=== PATIENT | male | born 1985 | race Caucasian/White ===

== ENCOUNTER 2017-10-28 03:09 | Emergency (ER) | payer BC, OTHER ==
[2017-10-28 03:47] VITALS: BP 163/105; PULSE 111; TEMP 98.8; BMI 40.7
--- NOTE | 2017-10-28 03:54 | PDOC ---
History of Present Illness - General Chief Complaint: Cold Symptoms Stated Complaint: S.O.B. Time Seen by Provider: 10/28/17 03:54 History Source: Patient - History of Present Illness Initial Comments: 10/28/17 04:30 32 year old male with flu like symptoms , cough, postussive vomiting, generalized karen aches, nasal congestion x 4 days. tmax 101 with chills and diaphoresis, denies chest pain ,headache, NVD, abdominal pain Past History - Past Medical History Allergies/Adverse Reactions: Allergies Allergy/AdvReac Type Severity Reaction Status Date / Time No Known Allergies Allergy Verified 10/28/17 03:45 Home Medications: Ambulatory Orders Cephalexin [Keflex] 500 mg PO QID #20 capsule 07/18/14 Ibuprofen [Motrin -] 600 mg PO QID PRN #20 tablet 07/18/14 Albuterol Sulfate Inhaler - [Ventolin HFA Inhaler -] 1 - 2 inh PO Q4H #1 inhaler 10/28/17 Azithromycin [Zithromax 250mg Tablets -] 250 mg PO UTDICT #6 tab 10/28/17 - Suicide/Smoking/Psychosocial Hx Smoking Status: No Smoking History: Never smoked Have you smoked in the past 12 months: No Number of Cigarettes Smoked Daily: 0 Information on smoking cessation initiated: No Hx Alcohol Use: No Drug/Substance Use Hx: No Substance Use Type: None *Physical Exam - Vital Signs Last Vital Signs Temp Pulse Resp BP Pulse Ox 98.8 F 111 H 14 163/105 97 10/28/17 03:45 10/28/17 03:45 10/28/17 03:45 10/28/17 03:45 10/28/17 03:45 *DC/Admit/Observation/Transfer Diagnosis at time of Disposition: Bronchitis - Discharge Dispostion Disposition: HOME - Prescriptions Prescriptions: Albuterol Sulfate Inhaler - [Ventolin HFA Inhaler -] 1 - 2 inh PO Q4H #1 inhaler Azithromycin [Zithromax 250mg Tablets -] 250 mg PO UTDICT #6 tab - Referrals Referrals: Juliet Ayala MD [Primary Care Provider] - - Patient Instructions Printed Discharge Instructions: DI for Acute Bronchitis Additional Instructions: use inhaler every 4-6 hours as needed take azithromycin as prescribed. follow up with your doctor as soon as possible. - Post Discharge Activity Forms/Work/School Notes: Back to Work
[2017-10-28] MEDS ORDERED: ALBUTEROL SO4 0.083% IH SOL 2.5 MG/3 ML VIAL.NEB. NEB ONE ×2 (04:30→04:38)
== END 2017-10-28 05:53 | disposition home or self-care (01) ==
LOC: JER 03:09
PROC: 3E0F7GC Introduction of Other Therapeutic Substance into Respiratory Tract, Via Natural or Artificial Opening (ICD-10-PCS; principal; 2017-10-28)
DX: J20.9 Acute bronchitis, unspecified (principal)
CPT/HCPCS: 87804; 99281-25

== ENCOUNTER 2017-12-18 00:43 | Emergency (ER) | payer BC ==
[2017-12-18 01:23] VITALS: BP 138/73; PULSE 103; TEMP 98.7; BMI 40.3
[2017-12-18] MEDS ORDERED: AMPICILLIN NA/SULBACTAM NA 3 GM in SODIUM CHLORIDE 100 ML IVPB ONE (02:01)
--- NOTE | 2017-12-18 02:01 | PDOC ---
History of Present Illness - General History Source: Patient Exam Limitations: No Limitations - History of Present Illness Initial Comments: 12/18/17 02:43 The patient is a 32-year-old male, with no significant past medical history, who presents to the ED with rash on his lower extremities. The patient was seen here on 12/12/17 for what was diagnosed as cellulitis of the lower extremities. He was prescribed keflex and bactrim, with no resolution. The patient has a little patchy area of erythema that started first on the medial aspect of his right calf. Subsequently, the cellulitis appears to have scattered. The patient now has splattered streaking throughout his upper thighs along with his original lesion on his right calf. He complains of fever and chills, but denies checking his temperature at home. The patient is not a diabetic. The patient denies any nausea, vomiting, diarrhea, or abdominal pain. PCP: Dr. Juliet Ayala <Marya Kay - Last Filed: 12/18/17 02:47> - General History Source: Patient <Julian Franklin - Last Filed: 12/18/17 03:59> - General Chief Complaint: Rash Stated Complaint: SKIN PROBLEM Time Seen by Provider: 12/18/17 01:56 Past History <Marya Kay - Last Filed: 12/18/17 02:47> - Past Medical History COPD: No Other medical history: Pt denies - Suicide/Smoking/Psychosocial Hx Smoking Status: No Smoking History: Never smoked Have you smoked in the past 12 months: No Number of Cigarettes Smoked Daily: 0 Information on smoking cessation initiated: No Hx Alcohol Use: No Drug/Substance Use Hx: No Substance Use Type: None <Julian Franklin - Last Filed: 12/18/17 03:59> - Past Medical History Allergies/Adverse Reactions: Allergies Allergy/AdvReac Type Severity Reaction Status Date / Time No Known Allergies Allergy Verified 12/18/17 01:21 Home Medications: Ambulatory Orders Albuterol Sulfate Inhaler - [Ventolin HFA Inhaler -] 1 - 2 inh PO Q4H #1 inhaler 10/28/17 Sulfamethoxazole/Trimethoprim [Bactrim Ds -] 1 tab PO BID #14 tablet 12/12/17 Clindamycin [Cleocin -] 300 mg PO TID #30 capsule 12/18/17 Ibuprofen 800 mg PO TID #30 tablet 12/18/17 Review of Systems - Review of Systems Able to Perform ROS?: Yes Comments:: 12/18/17 02:47 CONSTITUTIONAL: Present: fever, chills Absent: diaphoresis, generalized weakness, malaise, loss of appetite HEENT: Absent: rhinorrhea, nasal congestion, throat pain, throat swelling, difficulty swallowing, mouth swelling, ear pain, eye pain, visual Changes CARDIOVASCULAR: Absent: chest pain, syncope, palpitations, irregular heart rate, lightheadedness , peripheral edema RESPIRATORY: Absent: cough, shortness of breath, dyspnea with exertion, orthopnea, wheezing, stridor, hemoptysis GASTROINTESTINAL: Absent: abdominal pain, abdominal distension, nausea, vomiting, diarrhea, constipation, melena, hematochezia GENITOURINARY: Absent: dysuria, frequency, urgency, hesitancy, hematuria, flank pain, genital pain MUSCULOSKELETAL: Absent: myalgia, arthralgia, joint swelling SKIN: Present: rash to lower extremities Absent: pallor HEMATOLOGIC/IMMUNOLOGIC: Absent: easy bleeding, easy bruising, lymphadenopathy, frequent infections ENDOCRINE: Absent: unexplained weight gain, unexplained weight loss, heat intolerance, cold intolerance NEUROLOGIC: Absent: headache, focal weakness or paresthesias, dizziness, unsteady gait, seizure, mental status changes, bladder or bowel incontinence PSYCHIATRIC: Absent: anxiety, depression, suicidal or homicidal ideation, hallucinations. <Marya Kay - Last Filed: 12/18/17 02:47> *Physical Exam - Vital Signs Last Vital Signs Temp Pulse Resp BP Pulse Ox 98.7 F 103 H 20 138/73 100 12/18/17 01:22 12/18/17 01:22 12/18/17 01:22 12/18/17 01:22 12/18/17 01:22 - Physical Exam Comments: 12/18/17 02:49 GENERAL: Well developed, well nourished. Awake and alert. No acute distress. HEENT: Normocephalic, atraumatic. PERRLA, EOMI. No conjunctival pallor. Sclera are non- icteric. Moist mucous membranes. Oropharynx is clear. NECK: Supple. Full ROM. No JVD. Carotid pulses 2+ and symmetric, without bruits. No thyromegaly. No lymphadenopathy. CARDIOVASCULAR: Regular rate and rhythm. No murmurs, rubs, or gallops. Distal pulses are 2+ and symmetric. PULMONARY: No evidence of respiratory distress. Lungs clear to auscultation bilaterally. No wheezing, rales or rhonchi. MUSCULOSKELETAL Normal range of motion at all joints. No bony deformities or tenderness. No CVA tenderness. EXTREMITIES: (+)Both legs have scattered areas of erythematous streaking, which appear to be on the upper thigh and on the medial right leg, area is slightly tender. No induration or fluctuance. No clubbing. No edema. SKIN: Warm and dry. Normal capillary refill. No rashes. No jaundice. NEUROLOGICAL: Alert, awake, appropriate. PSYCHIATRIC: Cooperative. Good eye contact. Appropriate mood and affect. <Marya Kay - Last Filed: 12/18/17 02:47> - Vital Signs Last Vital Signs Temp Pulse Resp BP Pulse Ox 98.7 F 103 H 20 138/73 100 12/18/17 01:22 12/18/17 01:22 12/18/17 01:22 12/18/17 01:22 12/18/17 01:22 <Julian Franklin - Last Filed: 12/18/17 03:59> ED Treatment Course - LABORATORY CBC & Chemistry Diagram: 12/18/17 02:30 12/18/17 02:30 <Julian Franklin - Last Filed: 12/18/17 03:59> Medical Decision Making - Medical Decision Making 12/18/17 03:59 Dr. Franklin: The scribe's documentation has been prepared under my direction and personally reviewed by me in its entirery. I confirm that the note above accurately reflects all work, treatment, procedures, and medical decision making performed by me. <Julian Franklin - Last Filed: 12/18/17 03:59> *DC/Admit/Observation/Transfer - Attestations Scribe Attestion: 12/18/17 02:45 Documentation prepared by Marya Kay, acting as medical staff coordinator for Julian Franklin MD. <Marya Kay - Last Filed: 12/18/17 02:47> - Discharge Dispostion Admit: No <Julian Franklin - Last Filed: 12/18/17 03:59> Diagnosis at time of Disposition: Cellulitis - Discharge Dispostion Condition at time of disposition: Stable - Referrals Referrals: Juliet Ayala MD [Primary Care Provider] - Mandy Camara MD [Staff Physician] - Deidra Bender [Staff Physician] - - Patient Instructions Printed Discharge Instructions: DI for Cellulitis -- Adult Additional Instructions: Please follow up with the doctors referred to you in two days for re-evaluations - Post Discharge Activity
[2017-12-18 02:52] LABS: BASO % 0.6 % (0-2.0); EOS % 2.2 % (0-4.5); HEMATOCRIT 39.4 % (35.4-49); HEMOGLOBIN 13.4 GM/dL (11.7-16.9); LYMPH % 22.2 % (8-40); MCH 29.7 pg (25.7-33.7); MCHC 34.1 g/dl (32.0-35.9); MEAN CELL VOLUME 87.1 fl (80-96); MEAN PLT VOLUME 9.1 fl (7.5-11.1); PLATELET COUNT 433 K/MM3 (134-434); RBC 4.52 M/mm3 (4.00-5.60); RDW 13.5 % (11.9-15.9); WHITE BLOOD COUNT 11.7 K/mm3 (4.0-10.0)
[2017-12-18 03:09] LABS: INR 1.32 (0.82-1.09); PROTHROMBIN TIME (PATIENT) 14.9 SEC (9.98-11.88)
[2017-12-18 03:19] LABS: ALBUMIN 4.1 g/dl (3.4-5.0); ALK PHOS 100 U/L (45-117); ANION GAP 6 (8-16); BILIRUBIN,TOTAL 0.3 mg/dL (0.2-1.0); BLOOD UREA NITROGEN 14 mg/dL (7-18); CALCIUM 8.7 mg/dL (8.5-10.1); CHLORIDE 104 mmol/L (98-107); CO2 27 mmol/L (21-32); CREATININE 1.3 mg/dL (0.7-1.3); GLUCOSE,RANDOM 97 mg/dL (74-106); POTASSIUM 4.4 mmol/L (3.5-5.1); SGOT/AST 25 U/L (15-37); SGPT/ALT 52 U/L (12-78); SODIUM 137 mmol/L (136-145); TOT PROT 8.1 g/dl (6.4-8.2)
== END 2017-12-18 04:13 | disposition home or self-care (01) ==
LOC: JER 00:43
DX: L03.115 Cellulitis of right lower limb (principal); L03.116 Cellulitis of left lower limb
CPT/HCPCS: 36415; 80053; 85025; 85610; 87040; 99282-25

== ENCOUNTER 2018-01-17 15:44 | Inpatient (IN) | payer BC ==
[2018-01-17] MEDS ORDERED: ASPIRIN 325 MG TABLET PO ONE (16:16)
[2018-01-17] MEDS ORDERED: SODIUM CHLORIDE 1,000 ML IV STA (16:16)
--- NOTE | 2018-01-17 16:29 | PDOC ---
History of Present Illness - General History Source: Patient Exam Limitations: No Limitations - History of Present Illness Initial Comments: This is a 32 YOM with h/o panniculitis recently treated with Prednisone taper ( finished last pill about a week ago) who p/w lightheadedness, one episode of syncope today, and one episode of near-syncope. 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 He had a subsequent episode of the same symptoms without actually losing consciousness just afterward. He states that his symptoms recur when he site up or stands, and improve when he is laying down flat. He additionally has been nauseated and sweaty since the onset today, and notes SOB. He additionally notes an episode of black stool just prior to the syncopal episode, which he has never had before. He does not take iron or bismuth. <Sallie Segovia - Last Filed: 01/17/18 18:51> <Bart Ward - Last Filed: 01/17/18 19:29> - General Chief Complaint: Nausea/Vomiting Stated Complaint: NAUSEA, VOMITING Time Seen by Provider: 01/17/18 16:03 Past History - Past Medical History COPD: No - Suicide/Smoking/Psychosocial Hx Smoking Status: No Smoking History: Never smoked Have you smoked in the past 12 months: No Number of Cigarettes Smoked Daily: 0 Information on smoking cessation initiated: No Hx Alcohol Use: No Drug/Substance Use Hx: No Substance Use Type: None <Sallie Segovia - Last Filed: 01/17/18 18:51> <Bart Ward - Last Filed: 01/17/18 19:29> - Past Medical History Allergies/Adverse Reactions: Allergies Allergy/AdvReac Type Severity Reaction Status Date / Time No Known Allergies Allergy Verified 01/17/18 15:54 Home Medications: Ambulatory Orders Albuterol Sulfate Inhaler - [Ventolin HFA Inhaler -] 1 - 2 inh PO Q4H #1 inhaler 10/28/17 Sulfamethoxazole/Trimethoprim [Bactrim Ds -] 1 tab PO BID #14 tablet 12/12/17 Clindamycin [Cleocin -] 300 mg PO TID #30 capsule 12/18/17 Ibuprofen 800 mg PO TID #30 tablet 12/18/17 Review of Systems - Review of Systems Able to Perform ROS?: Yes Constitutional: No: Chills, Fever, Unexplained wgt Loss HEENTM: No: Nose Congestion, Throat Pain Respiratory: No: Cough, Shortness of Breath Cardiac (ROS): No: Chest Pain, Palpitations ABD/GI: No: Constipated, Diarrhea, Nausea, Vomiting : No: Burning, Dysuria Musculoskeletal: No: Back Pain, Neck Pain Integumentary: No: Bruising, Rash Neurological: No: Headache, Numbness, Tingling, Weakness, Dizziness Endocrine: No: Unexplained Weight Gain, Unexplained Weight Loss <Sallie Segovia - Last Filed: 01/17/18 18:51> *Physical Exam - Vital Signs Last Vital Signs Temp Pulse Resp BP Pulse Ox 98.0 F 134 H 16 141/75 100 01/17/18 15:45 01/17/18 15:45 01/17/18 15:45 01/17/18 15:45 01/17/18 15:45 - Physical Exam General Appearance: Yes: Nourished, Other (Patient's face is very diaphoretic, appears a bit pale, hospital gown with small amount of sweat soakthrough, morbidly obese, very pleasant and insightful adult male answering questions appropriately). No: Apparent Distress HEENT: positive: EOMI, Normal Voice, Hearing Grossly Normal. negative: Scleral Icterus (R), Scleral Icterus (L), Nasal Congestion Neck: positive: Trachea midline, Supple. negative: Tender, Rigid Respiratory/Chest: positive: Lungs Clear, Normal Breath Sounds. negative: Respiratory Distress, Crackles, Rhonchi, Stridor, Wheezing Cardiovascular: positive: Regular Rhythm, S1, S2, Tachycardia. negative: Edema , JVD, Murmur Gastrointestinal/Abdominal: positive: Normal Bowel Sounds, Soft. negative: Tender, Organomegaly, Pulsatile Mass, Guarding Rectal Exam: positive: other (dark/black stool in the rectal vault sent for FOBT ) Musculoskeletal: positive: Normal Inspection. negative: Decreased Range of Motion, Vertebral Tenderness Extremity: positive: Normal Capillary Refill, Normal Inspection, Normal Range of Motion. negative: Tender, Cyanosis Integumentary: positive: Normal Color, Dry, Warm. 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 negative: Facial Droop, Numbness, Sensory Deficit, Confused, Disoriented <Sallie Segovia - Last Filed: 01/17/18 18:51> - Vital Signs Last Vital Signs Temp Pulse Resp BP Pulse Ox 98.8 F 113 H 20 132/80 98 01/17/18 19:13 01/17/18 19:13 01/17/18 19:13 01/17/18 19:13 01/17/18 19:13 <Ed,Boris - Last Filed: 01/17/18 19:29> Heart Score/ECG Review #1 ECG reviewed & interpreted by me at: 16:37 01/17/18 16:37 Sinus tachycardia, rate 120, no ST-T changes, normal axis, NADP <Sallie Segovia - Last Filed: 01/17/18 18:51> ED Treatment Course - LABORATORY CBC & Chemistry Diagram: 01/17/18 16:25 01/17/18 16:25 - RADIOLOGY Radiology Studies Ordered: Category Date Time Status CHEST X-RAY PORTABLE* [RAD] Stat Radiology 01/17/18 16:16 Ordered <Sallie Segovia - Last Filed: 01/17/18 18:51> - LABORATORY CBC & Chemistry Diagram: 01/17/18 18:47 01/17/18 16:25 - ADDITIONAL ORDERS Additional order review: Laboratory Results 01/17/18 01/17/18 01/17/18 16:25 16:25 16:25 PT with INR 13.90 H INR 1.23 H D-Dimer < 200 Sodium Cancelled Potassium Cancelled Chloride Cancelled Carbon Dioxide Cancelled Anion Gap Cancelled BUN Cancelled Creatinine Cancelled Creat Clearance w eGFR Cancelled POC Glucometer Random Glucose Cancelled Calcium Cancelled Phosphorus Cancelled Magnesium Cancelled Total Bilirubin Cancelled AST Cancelled ALT Cancelled Alkaline Phosphatase Cancelled Creatine Kinase Cancelled Troponin I Cancelled Total Protein Cancelled Albumin Cancelled TSH Cancelled Stool Occult Blood 01/17/18 01/17/18 01/17/18 16:23 16:18 16:03 PT with INR INR D-Dimer Sodium 141 Potassium 4.6 Chloride 113 H Carbon Dioxide 21 D Anion Gap 7 L BUN 33 H D Creatinine 0.6 L D Creat Clearance w eGFR > 60 POC Glucometer 124.96714 Random Glucose 108 H Calcium 7.6 L Phosphorus 1.9 L Magnesium 2.1 Total Bilirubin 0.3 AST 14 L D ALT 34 D Alkaline Phosphatase 64 D Creatine Kinase 48 Troponin I 0.03 Total Protein 6.0 L D Albumin 3.0 L D TSH 0.45 Stool Occult Blood Positive 01/17/18 01/17/18 01/17/18 18:47 16:25 16:18 RBC 3.66 L 3.98 L MCV 88.1 89.0 MCHC 33.1 32.5 RDW 14.9 15.0 D MPV 9.4 9.7 Neutrophils % 87.2 H 84.6 H D Lymphocytes % 8.4 9.4 D Monocytes % 3.9 5.2 Eosinophils % 0.0 D 0.3 D Basophils % 0.5 0.5 POC Glucometer 124.26814 - Medications Given in the ED: ED Medications Discontinued Medications Generic Name Dose Route Start Last Admin Trade Name Freq PRN Reason Stop Dose Admin Aspirin 325 mg 01/17/18 16:16 01/17/18 16:32 Asa - PO 01/17/18 16:17 325 mg ONCE ONE Administration Sodium Chloride 1,000 mls @ 1,000 mls/hr 01/17/18 16:16 01/17/18 16:32 Normal Saline - IV 01/17/18 17:15 1,000 mls/hr ASDIR STA Administration Sodium Chloride 500 mls @ 500 mls/hr 01/17/18 18:03 01/17/18 18:07 Normal Saline - IV 01/17/18 19:02 500 mls/hr ASDIR STA Administration Ondansetron HCl 8 mg 01/17/18 17:05 01/17/18 17:09 Zofran Injection IVPUSH 01/17/18 17:06 8 mg ONCE ONE Administration Pantoprazole Sodium 80 mg 01/17/18 17:36 01/17/18 17:38 Protonix Iv IVPUSH 01/17/18 17:37 80 mg ONCE ONE Administration <Bart Ward - Last Filed: 01/17/18 19:29> Medical Decision Making - Medical Decision Making Adult male patient p/w syncope, nausea, lightheadedness, diaphoresis, black stool. Initial Vital Signs Temp Pulse Resp BP Pulse Ox 98.0 F 134 H 16 141/75 100 01/17/18 15:45 01/17/18 15:45 01/17/18 15:45 01/17/18 15:45 01/17/18 15:45 Exam notable for: Patient's face is very diaphoretic, appears a bit pale, hospital gown with small amount of sweat soakthrough, tachycardic but regular, breath sounds normal bilaterally, no abdominal or back ttp, no calf pain or swelling, rectal with small amount of black stool sent for FOBT. DDX IBNLT: hypovolemia and/or anemia from hemorrhage (e.g. AAA, GIB), arrhythmia (WPW, Brugada, long QT, SVT, A-fib, ventricular dysrhythmia, etc), HOCM, vasovagal, orthostasis, metabolic/electrolyte derangement (e.g. hypoglycemia, thyroid disease, pheochromocytoma, adrenal crisis, cortisol deficiency), infection, PE, AD, SAH, ACS, vertigo, etc. W/U ordered: CBCD CMP Mg Phos Troponin CK CKMB UA UCx EKG CXR FOBT Monitor TX ordered: IVF bolus, 80 mg Protonix IV EKG: Sinus tachycardia, rate 120, no ST-T changes, normal axis, NADP First set of jungle top labs hemolyzed; drawing another. CXR: NADP 01/17/18 17:[address] Perdomo who will see the patient for endoscopy [place]. He currently has several patients at [facility] to scope and will come [place] afterwards. He requests to be called if the patient's condition changes. Laboratory Tests 01/17/18 01/17/18 01/17/18 16:03 16:18 16:23 WBC RBC Hgb Hct MCV MCH MCHC RDW Plt Count MPV Neutrophils % Lymphocytes % Monocytes % Eosinophils % Basophils % PT with INR INR D-Dimer Sodium 141 Potassium 4.6 Chloride 113 H Carbon Dioxide 21 D Anion Gap 7 L BUN 33 H D Creatinine 0.6 L D Creat Clearance w eGFR > 60 POC Glucometer 124.10132 Random Glucose 108 H Calcium 7.6 L Phosphorus 1.9 L Magnesium 2.1 Total Bilirubin 0.3 AST 14 L D ALT 34 D Alkaline Phosphatase 64 D Creatine Kinase 48 Troponin I 0.03 Total Protein 6.0 L D Albumin 3.0 L D TSH 0.45 Stool Occult Blood Positive 01/17/18 01/17/18 01/17/18 16:25 16:25 16:25 WBC 16.4 H D RBC 3.98 L Hgb 11.5 L D Hct 35.5 MCV 89.0 MCH 28.9 MCHC 32.5 RDW 15.0 D Plt Count 320 D MPV 9.7 Neutrophils % 84.6 H D Lymphocytes % 9.4 D Monocytes % 5.2 Eosinophils % 0.3 D Basophils % 0.5 PT with INR 13.90 H INR 1.23 H D-Dimer Sodium Cancelled Potassium Cancelled Chloride Cancelled Carbon Dioxide Cancelled Anion Gap Cancelled BUN Cancelled Creatinine Cancelled Creat Clearance w eGFR Cancelled POC Glucometer Random Glucose Cancelled Calcium Cancelled Phosphorus Cancelled Magnesium Cancelled Total Bilirubin Cancelled AST Cancelled ALT Cancelled Alkaline Phosphatase Cancelled Creatine Kinase Cancelled Troponin I Cancelled Total Protein Cancelled Albumin Cancelled TSH Cancelled Stool Occult Blood 01/17/18 16:25 WBC RBC Hgb Hct MCV MCH MCHC RDW Plt Count MPV Neutrophils % Lymphocytes % Monocytes % Eosinophils % Basophils % PT with INR INR D-Dimer < 200 Sodium Potassium Chloride Carbon Dioxide Anion Gap BUN Creatinine Creat Clearance w eGFR POC Glucometer Random Glucose Calcium Phosphorus Magnesium Total Bilirubin AST ALT Alkaline Phosphatase Creatine Kinase Troponin I Total Protein Albumin TSH Stool Occult Blood Reassessment: 01/17/18 18:20 Spoke with ICU on-call provider, in agreement over ICU placement, consult order placed. Consult order placed to Dr. Vila's service per Dr. Perdomo's request. Patient has massive GIB. He requires further hospital observation, workup, and treatment. He requires ICU admission for close monitoring given continued drop in H/H. The patient is unsafe for discharge at this time. Microblog sent to [facility] for admission with ICU placement. Spoke with [facility], in agreement patient to be admitted to ICU to Dr. Velasco. Decision to Admit order placed to [facility] covering attending. <Sallie Segovia - Last Filed: 01/17/18 18:51> *DC/Admit/Observation/Transfer - Discharge Dispostion Admit: Yes <Sallie Segovia - Last Filed: 01/17/18 18:51> - Discharge Dispostion Admit: Yes <Bart Ward Last Filed: 01/17/18 19:29> Diagnosis at time of Disposition: GI bleed Qualifiers: GI bleed type/associated pathology: unspecified gastrointestinal hemorrhage type Qualified Code(s): K92.2 - Gastrointestinal hemorrhage, unspecified Anemia Qualifiers: Anemia type: unspecified type Qualified Code(s): D64.9 - Anemia, unspecified Syncope Qualifiers: Syncope type: unspecified Qualified Code(s): R55 - Syncope and collapse - Discharge Dispostion Condition at time of disposition: Critical - Referrals Referrals: Juliet Ayala MD [Primary Care Provider] - - Patient Instructions - Post Discharge Activity
[2018-01-17 16:38] LABS: BASO % 0.5 % (0-2.0); EOS % 0.3 % (0-4.5); HEMATOCRIT 35.5 % (35.4-49); HEMOGLOBIN 11.5 GM/dL (11.7-16.9); LYMPH % 9.4 % (8-40); MCH 28.9 pg (25.7-33.7); MCHC 32.5 g/dl (32.0-35.9); MEAN PLT VOLUME 9.7 fl (7.5-11.1); MONO % 5.2 % (3.8-10.2); NEUT % 84.6 % (42.8-82.8); PLATELET COUNT 320 K/MM3 (134-434); RBC 3.98 M/mm3 (4.00-5.60); WHITE BLOOD COUNT 16.4 K/mm3 (4.0-10.0)
[2018-01-17] MEDS ORDERED: ONDANSETRON 4 MG/2 ML VIAL IVPUSH ONE (17:05)
[2018-01-17] MEDS ORDERED: ONDANSETRON 4 MG/2 ML VIAL ONE (17:06)
--- NOTE | 2018-01-17 17:06 | PDOC ---
Attending Attestation - HPI HPI: The patient is a 32 year old male with significant past medical history of panniculitis (treated with Prednisone) who presents to the ED for evaluation of lightheadedness and 1 episode of syncope today. He reports fainting after standing and trying to walk with associated symptoms of lightheadedness as well as hearing and vision loss. He reports associated symptoms of nausea and diaphoresis. Of note, he reports an episode of a black stool prior to syncopal episode. <Froy Gresham - Last Filed: 01/17/18 18:29> - Resident Resident Name: LucaSallie - ED Attending Attestation I have performed the following: I have examined & evaluated the patient, The case was reviewed & discussed with the resident, I agree w/resident's findings & plan, Exceptions are as noted - Physicial Exam PE: 01/17/18 17:57 Patient is awake and alert, pale appearing, diaphoretic, tachycardic; nc, atr perrla. eomi conj-pale cta rrr sft, nt, nd - Critical Care Time Total Critical Care Time: 55 Critical Care Statement: The care of this patient involved high complexity decision making to prevent further life threatening deterioration of the patient 's condition and/or to evaluate & treat vital organ system(s) failure or risk of failure. - Medical Decision Making 01/17/18 17:58 Patient is a 32-year-old male who presents with signs and symptoms of upper GI bleed with hypovolemia. Patient is diaphoretic, pale appearing, tachycardic, with signs of orthostatic hypotension on evaluation. Patient is Hemoccult positive. First hemoglobin is noted to be 11.5 which is less than 13.5 obtained 1 month previously. I suspect upper GI bleed related to ibuprofen and prednisone therapy. We'll administer Protonix. We'll resuscitated with IV fluids and blood as needed. Case discussed with GI. Patient will require close monitoring, serial hematocrits, placement in the ICU and endoscopy. Dr. Perdomo of GI consulted and agrees with the plan of care. Will admit to the ICU. 01/17/18 19:27 pt remains mildly tachycardic and normotensive. he is no loner diaphoretic and orthostatic. pt has recieved 1500 ml of NS. repeat cbc shows Hg of 10.7. no indication for prbcs present currently. awaiting transfer to icu. pt seen by GI. will cont witwh plan of care as bfre. <Bart Ward - Last Filed: 01/17/18 19:31> Attestations - Attestations Documentation prepared by Froy Gresham, acting as medical certification specialist for Bart Ward MD. <Froy Gresham - Last Filed: 01/17/18 18:29>
[2018-01-17 17:08] LABS: INR 1.23 (0.82-1.09); PROTHROMBIN TIME (PATIENT) 13.9 SEC (9.7-13.0)
[2018-01-17] MEDS ORDERED: PANTOPRAZOLE SODIUM 40 MG VIAL ONE (17:34)
[2018-01-17] MEDS ORDERED: PANTOPRAZOLE SODIUM 40 MG VIAL IVPUSH ONE (17:36)
[2018-01-17 17:56] LABS: ANION GAP 7 (8-16); BILIRUBIN,TOTAL 0.3 mg/dL (0.2-1.0); BLOOD UREA NITROGEN 33 mg/dL (7-18); CALCIUM 7.6 mg/dL (8.5-10.1); CHLORIDE 113 mmol/L (98-107); CO2 21 mmol/L (21-32); CREATININE 0.6 mg/dL (0.7-1.3); GLUCOSE,RANDOM 108 mg/dL (74-106); MAGNESIUM 2.1 mg/dL (1.8-2.4); PHOSPHOROUS 1.9 mg/dL (2.5-4.9); POTASSIUM 4.6 mmol/L (3.5-5.1); SGOT/AST 14 U/L (15-37); SGPT/ALT 34 U/L (12-78); SODIUM 141 mmol/L (136-145)
[2018-01-17] MEDS ORDERED: SODIUM CHLORIDE 500 ML IV STA (18:03)
[2018-01-17 18:04] LABS: ALK PHOS 64 U/L (45-117)
--- NOTE | 2018-01-17 18:53 | CON.GI ---
Consult Consult Specialty:: Gastroenterology Referred by:: Dr. Bart Ward Reason for Consultation:: GI bleed - History of Present Illness Chief Complaint: Melena since last night History of Present Illness: 32M has had 3 episodes of melena since last night leading to lightheadedness and near syncope. His Hb is 11.5 but is decreased from 13.7. He was recently treated with prednisone and NSAIDs of a panniculitis of his highs by a cigar bander hand following a biopsy. He has no h/o previous GI bleeding. NO alcohol abuse. 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 [employer] Place of : [place] [facility] Home Medications - Allergies Allergies/Adverse Reactions: Allergies Allergy/AdvReac Type Severity Reaction Status Date / Time No Known Allergies Allergy Verified 01/17/18 15:54 - Home Medications Home Medications: Ambulatory Orders Albuterol Sulfate Inhaler - [Ventolin HFA Inhaler -] 1 - 2 inh PO Q4H #1 inhaler 10/28/17 Sulfamethoxazole/Trimethoprim [Bactrim Ds -] 1 tab PO BID #14 tablet 12/12/17 Clindamycin [Cleocin -] 300 mg PO TID #30 capsule 12/18/17 Ibuprofen 800 mg PO TID #30 tablet 12/18/17 Family Disease History - Family Disease History Family Disease History: Other: Father (unknown), Mother (HTN) Review of Systems - Review of Systems Constitutional: reports: No Symptoms Eyes: reports: No Symptoms HENT: reports: No Symptoms Neck: reports: No Symptoms Cardiovascular: reports: No Symptoms Respiratory: reports: No Symptoms Gastrointestinal: reports: No Symptoms Genitourinary: reports: No Symptoms Musculoskeletal: reports: No Symptoms Integumentary: reports: Other (panniculitis of thighs) Physical Exam-GI Vital Signs: Vital Signs Temperature 98.0 F 01/17/18 15:45 Pulse Rate 134 H 01/17/18 15:45 Respiratory Rate 16 01/17/18 15:45 Blood Pressure 141/75 01/17/18 15:45 O2 Sat by Pulse Oximetry (%) 100 01/17/18 15:45 CBC,CMP WBC 16.4 K/mm3 (4.0-10.0) H D 01/17/18 16:25 RBC 3.98 M/mm3 (4.00-5.60) L 01/17/18 16:25 Hgb 11.5 GM/dL (11.7-16.9) L D 01/17/18 16:25 Hct 35.5 % (35.4-49) 01/17/18 16:25 MCV 89.0 fl (80-96) 01/17/18 16:25 MCH 28.9 pg (25.7-33.7) 01/17/18 16:25 MCHC 32.5 g/dl (32.0-35.9) 01/17/18 16:25 RDW 15.0 % (11.9-15.9) D 01/17/18 16:25 Plt Count 320 K/MM3 (134-434) D 01/17/18 16:25 MPV 9.7 fl (7.5-11.1) 01/17/18 16:25 Neutrophils % 84.6 % (42.8-82.8) H D 01/17/18 16:25 Lymphocytes % 9.4 % (8-40) D 01/17/18 16:25 Monocytes % 5.2 % (3.8-10.2) 01/17/18 16:25 Eosinophils % 0.3 % (0-4.5) D 01/17/18 16:25 Basophils % 0.5 % (0-2.0) 01/17/18 16:25 Sodium Cancelled 01/17/18 16:25 Potassium Cancelled 01/17/18 16:25 Chloride Cancelled 01/17/18 16:25 Carbon Dioxide Cancelled 01/17/18 16:25 Anion Gap Cancelled 01/17/18 16:25 BUN Cancelled 01/17/18 16:25 Creatinine Cancelled 01/17/18 16:25 Creat Clearance w eGFR Cancelled 01/17/18 16:25 POC Glucometer 124.41020 UNITS (80-120) 01/17/18 16:18 Random Glucose Cancelled 01/17/18 16:25 Calcium Cancelled 01/17/18 16:25 Phosphorus Cancelled 01/17/18 16:25 Magnesium Cancelled 01/17/18 16:25 Total Bilirubin Cancelled 01/17/18 16:25 AST Cancelled 01/17/18 16:25 ALT Cancelled 01/17/18 16:25 Alkaline Phosphatase Cancelled 01/17/18 16:25 Creatine Kinase Cancelled 01/17/18 16:25 Troponin I Cancelled 01/17/18 16:25 Total Protein Cancelled 01/17/18 16:25 Albumin Cancelled 01/17/18 16:25 TSH Cancelled 01/17/18 16:25 Current Medications Generic Name Dose Route Start Last Admin Trade Name Loulou PRN Reason Stop Dose Admin Sodium Chloride 500 mls @ 500 mls/hr 01/17/18 18:03 01/17/18 18:07 Normal Saline - IV 01/17/18 19:02 500 mls/hr ASDIR STA Administration Constitutional: Yes: No Distress Eyes: Yes: Conjunctiva Clear HENT: Yes: Normocephalic Neck: Yes: Trachea Midline Cardiovascular: Yes: Regular Rate and Rhythm Respiratory: Yes: CTA Bilaterally ...Auscultate: Yes: Normoactive Bowel Sounds ...Palpate: Yes: Soft, Other (nontender) ...Rectal Exam: Yes: Guaiac Positive (black loose stool) Edema: No Neurological: Yes: Alert, Oriented Labs: CBC, BMP 01/17/18 16:25 01/17/18 16:25 INR, PTT INR 1.23 (0.82-1.09) H 01/17/18 16:25 Problem List - Problems (1) Bleeding Assessment/Plan: Suspect bleeding form an NSAID and steroid provoked ulcer or erosive gastroduodenitis or perhaps silent erosive GERD. I have proposed an EGD to diagnose and control the hemorrhage . I have informed Ed of the potential for such complications as perforation and hemorrhage among others and he has granted an informed consent. Will do the EGD after resuscitation. Agree with PPI infusion. The plan was discussed with Dr Ward and Dr Capellan. Code(s): R58 - HEMORRHAGE, NOT ELSEWHERE CLASSIFIED
--- NOTE | 2018-01-17 18:55 | PN ---
Teaching Attending Note Name of Resident: Kale Capellan ATTENDING PHYSICIAN STATEMENT I saw and evaluated the patient. I reviewed the resident's note and discussed the case with the resident. I agree with the resident's findings and plan as documented with exceptions below. SUBJECTIVE: 32 yom with PMhx of obesity, recent bilateral inner thigh rash, when was seen in the ED on 12/12, sent home on keflex/bactrim, seen with persistent symptoms, sent out on clindamycin/ibuprofen and referred to dermatology, when had biopsy confirming panniculitis and was placed on 14 days of prednisone and ibuprofen 400 mg daily with resolution of his thigh symptoms, was in his USOH till overnight when got up to go the bathroom, felt lightheaded, sat on toilet had dark tarry BM, after which got up, felt very dizzy,about to pass out, sat on bed and passed out with his head facing down, feels might have been a few min, woke up, sat on chair with similar episode of lightheadedness and came to ED. patient was noted dizzy, tachycardic, with dark stools in rectum in the ED. Currently patient sitting in bed,appropriately conversant, reports some nausea, but no light headedness/syncope/presyncope symptoms. No vomiting, abdominal pain or further BM in the ED. OBJECTIVE: Vital Signs Period Temp Pulse Resp BP Sys/Ramos Pulse Ox Last 24 Hr 98.0 F 134 16 141/75 100 Intake & Output 01/14/18 01/15/18 01/16/18 01/17/18 23:59 23:59 23:59 23:59 Weight 261 lb GENERAL: Awake, alert, and fully oriented, in no acute distress, no use of acessory muscles of respiration HEAD: Normal with no signs of trauma. EYES: Pupils equal, round and reactive to light, extraocular movements intact, sclera anicteric, conjunctival pallor. No lid lag. EARS, NOSE, THROAT: Ears normal, nares patent, oropharynx clear without exudates. Moist mucous membranes. NECK: soft, supple, no JVD LUNGS: Breath sounds equal, clear to auscultation bilaterally. No wheezes, and no crackles. limited exam HEART: tachycardic ABDOMEN: Soft, nontender, obese, no voluntary or involuntary guarding or rigidity MUSCULOSKELETAL: Normal range of motion at all joints. No bony deformities or tenderness. rectal; minimal stool, no blood UPPER EXTREMITIES: 2+ pulses, warm, well-perfused. No cyanosis. No clubbing. Cap refill <2 seconds. No peripheral edema. LOWER EXTREMITIES: 2+ pulses, warm, well-perfused. No calf tenderness. No peripheral edema. NEUROLOGICAL: Cranial nerves II-XII grossly intact. Normal speech. PSYCHIATRIC: Cooperative. Good eye contact. Appropriate mood and affect. SKIN: Warm, dry, normal turgor, no rashes or lesions noted. Active Medications Generic Name Dose Route Start Last Admin Trade Name Freq PRN Reason Stop Dose Admin Sodium Chloride 500 mls @ 500 mls/hr 01/17/18 18:03 01/17/18 18:07 Normal Saline - IV 01/17/18 19:02 500 mls/hr ASDIR STA Administration Laboratory Results - last 24 hr 01/17/18 01/17/18 01/17/18 16:03 16:18 16:23 WBC RBC Hgb Hct MCV MCH MCHC RDW Plt Count MPV Neutrophils % Lymphocytes % Monocytes % Eosinophils % Basophils % PT with INR INR D-Dimer Sodium 141 Potassium 4.6 Chloride 113 H Carbon Dioxide 21 D Anion Gap 7 L BUN 33 H D Creatinine 0.6 L D Creat Clearance w eGFR > 60 POC Glucometer 124.68711 Random Glucose 108 H Calcium 7.6 L Phosphorus 1.9 L Magnesium 2.1 Total Bilirubin 0.3 AST 14 L D ALT 34 D Alkaline Phosphatase 64 D Creatine Kinase 48 Troponin I 0.03 Total Protein 6.0 L D Albumin 3.0 L D TSH 0.45 Stool Occult Blood Positive 01/17/18 01/17/18 01/17/18 16:25 16:25 16:25 WBC 16.4 H D RBC 3.98 L Hgb 11.5 L D Hct 35.5 MCV 89.0 MCH 28.9 MCHC 32.5 RDW 15.0 D Plt Count 320 D MPV 9.7 Neutrophils % 84.6 H D Lymphocytes % 9.4 D Monocytes % 5.2 Eosinophils % 0.3 D Basophils % 0.5 PT with INR 13.90 H INR 1.23 H D-Dimer Sodium Cancelled Potassium Cancelled Chloride Cancelled Carbon Dioxide Cancelled Anion Gap Cancelled BUN Cancelled Creatinine Cancelled Creat Clearance w eGFR Cancelled POC Glucometer Random Glucose Cancelled Calcium Cancelled Phosphorus Cancelled Magnesium Cancelled Total Bilirubin Cancelled AST Cancelled ALT Cancelled Alkaline Phosphatase Cancelled Creatine Kinase Cancelled Troponin I Cancelled Total Protein Cancelled Albumin Cancelled TSH Cancelled Stool Occult Blood 01/17/18 16:25 WBC RBC Hgb Hct MCV MCH MCHC RDW Plt Count MPV Neutrophils % Lymphocytes % Monocytes % Eosinophils % Basophils % PT with INR INR D-Dimer < 200 Sodium Potassium Chloride Carbon Dioxide Anion Gap BUN Creatinine Creat Clearance w eGFR POC Glucometer Random Glucose Calcium Phosphorus Magnesium Total Bilirubin AST ALT Alkaline Phosphatase Creatine Kinase Troponin I Total Protein Albumin TSH Stool Occult Blood CXR personally reviewed - no acute process visible, follow up official read EKG sinus tach 120, no acute ST-T changes ASSESSMENT AND PLAN: 32 yom with Acute GI haemorrhage, syncope -Acute GI haemorrhage, highly suspicious for bleeding ulcer given recent prednisone/ibuprofen use, r/o other etiologies, low suspicion for lower GI bleed -Syncope, from acute GIB compounded by hypovolumia and vasovagal from bowel movement with positional change, presentation not suggestive of cardiac/ neurological etiology -Sinus tachycardia with orthostasis from above -recent panniculitis resolved -Obesity Plan: Accepted to ICU, 2 large bore IVs, NPO, Aggressive hydration, type and screen, transfuse for Drop > 2 gm or hemodynamically unstable. Protonix drip. GI Dr. Perdomo at bedside, plan for EGD, will follow up. Plan was discussed with patient and all questions answered. patient accepted to ICU. total critical care time 40 min.
[2018-01-17 18:57] LABS: BASO % 0.5 % (0-2.0); HEMATOCRIT 32.3 % (35.4-49); HEMOGLOBIN 10.7 GM/dL (11.7-16.9); LYMPH % 8.4 % (8-40); MCH 29.2 pg (25.7-33.7); MCHC 33.1 g/dl (32.0-35.9); MEAN CELL VOLUME 88.1 fl (80-96); MEAN PLT VOLUME 9.4 fl (7.5-11.1); MONO % 3.9 % (3.8-10.2); NEUT % 87.2 % (42.8-82.8); PLATELET COUNT 297 K/MM3 (134-434); RBC 3.66 M/mm3 (4.00-5.60); RDW 14.9 % (11.9-15.9); WHITE BLOOD COUNT 18.1 K/mm3 (4.0-10.0)
[2018-01-17] MEDS ORDERED: PANTOPRAZOLE SODIUM 80 MG in SODIUM CHLORIDE 100 ML IVPB SCH (19:30)
[2018-01-17] MEDS ORDERED: SODIUM CHLORIDE 0.45% 1,000 ML IV SCH (19:30)
--- NOTE | 2018-01-17 19:30 | HP ---
CHIEF COMPLAINT: upper gi bleed HISTORY OF PRESENT ILLNESS: 32 y/o male came to hospital with a complaint of syncopal episode. Patient reports that in morninn he had black color stool and when he stand up he felt lighhedid. After that he syncopised in his bed for few minutes and after he woke up he felt lightheadid while sitting. States lightheadidness was associated with diaphoresis and sob. Sob got resolved itself Denies chest pain, palpitation. Also reports episode of vomiting which has pink color in it. Denies bleeding disorder, smoking, alcohal, drugs. Denies epigastric pain, pain with food or empty stomach pain. Denies loss of weight and apeatite.Denies dysphagia. Denies tinismus, scallop shucker diarrhoea. Denies pain during defecation. Denies constipation. Denies urinary symptoms and hematuria Patient tokk prednisone and ibuprofen for panculitis. Finished last week ER course was notable for: (1)aspirin 325 mg in er (2)cbc, cmp (3)gi consult Recent Travel: no PAST MEDICAL HISTORY:paniculitis, bronchitis PAST SURGICAL HISTORY: sinus surgery Social History: Smoking: no Alcohol:no Drugs: no Family History: aunt from mother side has cancer, dont know which type. Allergies. dust No Known Allergies Allergy (Verified 01/17/18 15:54) HOME MEDICATIONS: Home Medications Medication Instructions Recorded Albuterol Sulfate Inhaler - 1 - 2 inh PO Q4H #1 inhaler 10/28/17 [Ventolin HFA Inhaler -] Sulfamethoxazole/Trimethoprim 1 tab PO BID #14 tablet 12/12/17 [Bactrim Ds -] Clindamycin [Cleocin -] 300 mg PO TID #30 capsule 12/18/17 Ibuprofen 800 mg PO TID #30 tablet 12/18/17 REVIEW OF SYSTEMS CONSTITUTIONAL: Absent: fever, chills, diaphoresis, generalized weakness, malaise, loss of appetite, weight change HEENT: Absent: rhinorrhea, nasal congestion, throat pain, throat swelling, difficulty swallowing, mouth swelling, ear pain, eye pain, visual changes CARDIOVASCULAR: Absent: chest pain, syncope, palpitations, irregular heart rate, lightheadedness , peripheral edema RESPIRATORY: Absent: cough, shortness of breath, dyspnea with exertion, orthopnea, wheezing, stridor, hemoptysis GASTROINTESTINAL: Absent: abdominal pain, abdominal distension, nausea, vomiting, diarrhea, constipation, melena, hematochezia GENITOURINARY: Absent: dysuria, frequency, urgency, hesitancy, hematuria, flank pain, genital pain MUSCULOSKELETAL: Absent: myalgia, arthralgia, joint swelling, back pain, neck pain SKIN: Absent: rash, itching, pallor HEMATOLOGIC/IMMUNOLOGIC: Absent: easy bleeding, easy bruising, ENDOCRINE: Absent: unexplained weight gain, unexplained weight loss, heat intolerance, cold intolerance NEUROLOGIC: Absent: headache, focal weakness or paresthesias, dizziness, unsteady gait, PSYCHIATRIC: Absent: anxiety, depression, suicidal or homicidal ideation, hallucinations. PHYSICAL EXAMINATION Vital Signs - 24 hr 01/17/18 01/17/18 15:45 19:13 Temperature 98.0 F 98.8 F Pulse Rate 134 H Pulse Rate [ 113 H Left Radial] Respiratory 16 20 Rate Blood Pressure 141/75 Blood Pressure 132/80 [Left Arm] O2 Sat by Pulse 100 98 Oximetry (%) GENERAL: Awake, alert, and fully oriented, in no acute distress. HEAD: Normal with no signs of trauma. EYES: Pupils equal, round and reactive to light, extraocular movements intact, sclera anicteric, conjunctiva clear. No lid lag. EARS, NOSE, THROAT: Ears normal, nares patent, oropharynx clear without exudates. Moist mucous membranes. NECK: Normal range of motion, supple without lymphadenopathy, JVD, or masses. LUNGS: Breath sounds equal, clear to auscultation bilaterally. No wheezes, and no crackles. No accessory muscle use. HEART: Regular rate and rhythm, normal S1 and S2 without murmur, rub or gallop. ABDOMEN: Soft, nontender, not distended, normoactive bowel sounds, no guarding, no rebound, no masses. No hepatomegaly or splenomegaly. MUSCULOSKELETAL: Normal range of motion at all joints. No bony deformities or tenderness. No CVA tenderness. UPPER EXTREMITIES: 2+ pulses, warm, well-perfused. No cyanosis. No clubbing. No peripheral edema. LOWER EXTREMITIES: 2+ pulses, warm, well-perfused. No calf tenderness. No peripheral edema. NEUROLOGICAL: Cranial nerves II-XII intact. Normal speech. Normal gait. PSYCHIATRIC: Cooperative. Good eye contact. Appropriate mood and affect. SKIN: Warm, dry, normal turgor, no rashes or lesions noted, normal capillary refill. Laboratory Results - last 24 hr 01/17/18 01/17/18 01/17/18 16:03 16:18 16:23 WBC RBC Hgb Hct MCV MCH MCHC RDW Plt Count MPV Neutrophils % Lymphocytes % Monocytes % Eosinophils % Basophils % PT with INR INR D-Dimer Sodium 141 Potassium 4.6 Chloride 113 H Carbon Dioxide 21 D Anion Gap 7 L BUN 33 H D Creatinine 0.6 L D Creat Clearance w eGFR > 60 POC Glucometer 124.66996 Random Glucose 108 H Calcium 7.6 L Phosphorus 1.9 L Magnesium 2.1 Total Bilirubin 0.3 AST 14 L D ALT 34 D Alkaline Phosphatase 64 D Creatine Kinase 48 Troponin I 0.03 Total Protein 6.0 L D Albumin 3.0 L D TSH 0.45 Stool Occult Blood Positive 01/17/18 01/17/18 01/17/18 16:25 16:25 16:25 WBC 16.4 H D RBC 3.98 L Hgb 11.5 L D Hct 35.5 MCV 89.0 MCH 28.9 MCHC 32.5 RDW 15.0 D Plt Count 320 D MPV 9.7 Neutrophils % 84.6 H D Lymphocytes % 9.4 D Monocytes % 5.2 Eosinophils % 0.3 D Basophils % 0.5 PT with INR 13.90 H INR 1.23 H D-Dimer Sodium Cancelled Potassium Cancelled Chloride Cancelled Carbon Dioxide Cancelled Anion Gap Cancelled BUN Cancelled Creatinine Cancelled Creat Clearance w eGFR Cancelled POC Glucometer Random Glucose Cancelled Calcium Cancelled Phosphorus Cancelled Magnesium Cancelled Total Bilirubin Cancelled AST Cancelled ALT Cancelled Alkaline Phosphatase Cancelled Creatine Kinase Cancelled Troponin I Cancelled Total Protein Cancelled Albumin Cancelled TSH Cancelled Stool Occult Blood 01/17/18 01/17/18 16:25 18:47 WBC 18.1 H RBC 3.66 L Hgb 10.7 L Hct 32.3 L MCV 88.1 MCH 29.2 MCHC 33.1 RDW 14.9 Plt Count 297 MPV 9.4 Neutrophils % 87.2 H Lymphocytes % 8.4 Monocytes % 3.9 Eosinophils % 0.0 D Basophils % 0.5 PT with INR INR D-Dimer < 200 Sodium Potassium Chloride Carbon Dioxide Anion Gap BUN Creatinine Creat Clearance w eGFR POC Glucometer Random Glucose Calcium Phosphorus Magnesium Total Bilirubin AST ALT Alkaline Phosphatase Creatine Kinase Troponin I Total Protein Albumin TSH Stool Occult Blood ASSESSMENT/PLAN: GI bleed; likely upper gi bleed from ulcer from prednisone and ibuprfen vs vasculitis, less likely lower gi cbc q6h IV fluid 1/2 ns 125ml/hr monitor vitals monitor intake and output. If Hb gows below 8 transfuse blood or if patinet become symptomatic transfuse blood. GI on case Dr kim: likely going to do egd tomorrow or if he bleeds silvia get egd today. protonix drip. To Iv [place] no 18. get aptt, pt/inr type and screen Syncope likely from hypovolemia from bleed. less likely cardiac source. environmental monitoring specialist obesity auto travel counselor for diet and exercise during discharge. paniculitis resolved fluid 1/2 ns 125ml/hr. BP incresed on NS electrolyte: repeat in am nutr: npo dvt pro: scd dispo: icu Visit type - Emergency Visit Emergency Visit: Yes Care time: The patient presented to the Emergency Department on the above date and was hospitalized for further evaluation of their emergent condition. - New Patient This patient is new to me today: Yes Date on this admission: 01/17/18 - Critical Care Critical Care patient: Yes Total Critical Care Time (in minutes): 45 Critical Care Statement: The care of this patient involved high complexity decision making to prevent further life threatening deterioration of the patient 's condition and/or to evaluate & treat vital organ system(s) failure or risk of failure.
[2018-01-17] MEDS ORDERED: PANTOPRAZOLE SODIUM 160 MG in DEXTROSE 5%-WATER - 290 ML IVPB SCH (19:45)
--- NOTE | 2018-01-17 20:59 | CONSULT ---
Consult Consult Specialty:: Pulm/CCM Reason for Consultation:: GIB - History of Present Illness Chief Complaint: Lightheadedness History of Present Illness: 32yo obese man with no significant medical history who was recently treated for panniculitis with prednisone and ibuprofen who was brought in by EMS with c/o lightheaded and an episode of syncope. Pt states that he has been nauseous and lightheaded x1 day and had 1 episode of black stools. He also reported episode of double vision and hearing loss for ~10secs. He denies chest pain, palpitation , abd pain. He completed prednisone and ibuprofen treatment about 1 week [employer]. In the ED 98F, HR 134, BP 141/75, O2 sat 100% on room air. Labs notable for WBC 18.1 87% neuts, Hgb11( previously 13). Emesis x1 mucoid. Two large bore IVs inserted, Protonix IV, Zofran and 1L NS given. He was transferred to ICU for management. In ICU BP 149/99, HR 124, O2 sat 100% on room. Protonix drip started. GI consulted. Plan for EGD in am if remains stable. 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 [employer] Home Medications - Allergies Allergies/Adverse Reactions: Allergies Allergy/AdvReac Type Severity Reaction Status Date / Time No Known Allergies Allergy Verified 01/17/18 15:54 - Home Medications Home Medications: Ambulatory Orders Albuterol Sulfate Inhaler - [Ventolin HFA Inhaler -] 1 - 2 inh PO Q4H #1 inhaler 10/28/17 Sulfamethoxazole/Trimethoprim [Bactrim Ds -] 1 tab PO BID #14 tablet 12/12/17 Clindamycin [Cleocin -] 300 mg PO TID #30 capsule 12/18/17 Ibuprofen 800 mg PO TID #30 tablet 12/18/17 Family Disease History - Family Disease History Family History: Unremarkable Family Disease History: Other: Father (unknown), Mother (HTN) Review of Systems - Review of Systems Eyes: reports: Double Vision HENT: reports: Hearing Loss Cardiovascular: reports: Palpitations Gastrointestinal: reports: Melena Neurological: reports: Syncope Physical Exam Vital Signs: Vital Signs Temperature 98.8 F 01/17/18 19:13 Pulse Rate 113 H 01/17/18 19:13 Respiratory Rate 20 01/17/18 19:13 Blood Pressure 132/80 01/17/18 19:13 O2 Sat by Pulse Oximetry (%) 98 01/17/18 19:13 Intake & Output 01/14/18 01/15/18 01/16/18 01/17/18 23:59 23:59 23:59 23:59 Weight 118.388 kg Constitutional: Yes: Obese Eyes: Yes: Conjunctiva Clear, PERRL HENT: Yes: Atraumatic, Normocephalic Neck: Yes: Supple Cardiovascular: Yes: Regular Rate and Rhythm, Tachycardia, S1, S2 Respiratory: Yes: Regular, CTA Bilaterally Gastrointestinal: Yes: Soft, Abdomen, Obese, Other (non tender) Extremities: Yes: WNL Edema: No Peripheral Pulses WNL: Yes Integumentary: Yes: Other (few small red and scabbed papules on calf and thighs) Neurological: Yes: WNL, Alert ...Motor Strength: WNL Psychiatric: Yes: WNL, Alert Labs: CBC, BMP 01/17/18 18:47 01/17/18 16:25 CBC,CMP WBC 18.1 K/mm3 (4.0-10.0) H 01/17/18 18:47 RBC 3.66 M/mm3 (4.00-5.60) L 01/17/18 18:47 Hgb 10.7 GM/dL (11.7-16.9) L 01/17/18 18:47 Hct 32.3 % (35.4-49) L 01/17/18 18:47 MCV 88.1 fl (80-96) 01/17/18 18:47 MCH 29.2 pg (25.7-33.7) 01/17/18 18:47 MCHC 33.1 g/dl (32.0-35.9) 01/17/18 18:47 RDW 14.9 % (11.9-15.9) 01/17/18 18:47 Plt Count 297 K/MM3 (134-434) 01/17/18 18:47 MPV 9.4 fl (7.5-11.1) 01/17/18 18:47 Neutrophils % 87.2 % (42.8-82.8) H 01/17/18 18:47 Lymphocytes % 8.4 % (8-40) 01/17/18 18:47 Monocytes % 3.9 % (3.8-10.2) 01/17/18 18:47 Eosinophils % 0.0 % (0-4.5) D 01/17/18 18:47 Basophils % 0.5 % (0-2.0) 01/17/18 18:47 Sodium Cancelled 01/17/18 16:25 Potassium Cancelled 01/17/18 16:25 Chloride Cancelled 01/17/18 16:25 Carbon Dioxide Cancelled 01/17/18 16:25 Anion Gap Cancelled 01/17/18 16:25 BUN Cancelled 01/17/18 16:25 Creatinine Cancelled 01/17/18 16:25 Creat Clearance w eGFR Cancelled 01/17/18 16:25 POC Glucometer 124.42135 UNITS (80-120) 01/17/18 16:18 Random Glucose Cancelled 01/17/18 16:25 Calcium Cancelled 01/17/18 16:25 Phosphorus Cancelled 01/17/18 16:25 Magnesium Cancelled 01/17/18 16:25 Total Bilirubin Cancelled 01/17/18 16:25 AST Cancelled 01/17/18 16:25 ALT Cancelled 01/17/18 16:25 Alkaline Phosphatase Cancelled 01/17/18 16:25 Creatine Kinase Cancelled 01/17/18 16:25 Troponin I Cancelled 01/17/18 16:25 Total Protein Cancelled 01/17/18 16:25 Albumin Cancelled 01/17/18 16:25 TSH Cancelled 01/17/18 16:25 Current Medications Chlorhexidine Gluconate (Hibiclens For Decolonization -) 1 applic TP HS LEN Sodium Chloride (1/2 Normal Saline) 1,000 mls @ 125 mls/hr IV ASDIR LEN Pantoprazole Sodium 160 mg/ (Dextrose) 290 mls @ 14.5 mls/hr IVPB Q20H LEN Mupirocin (Bactroban Ointment (For Decolonization) -) 1 applic NS BID [facility] Stop: 01/22/18 21:59 Imaging - Results Chest X-ray: Image Reviewed Problem List - Problems (1) Bleeding Code(s): R58 - HEMORRHAGE, NOT ELSEWHERE CLASSIFIED (2) Gastrointestinal bleeding Code(s): K92.2 - GASTROINTESTINAL HEMORRHAGE, UNSPECIFIED Assessment/Plan 32yom with recenttreatment for panniculitis with prednisone and ibuprofen now present with melena , lightheadedness, syncope and drop in Hgb 13->10.7. Presently HD stable with no new melody. Plan for EGD in am Plan: -GI consulted -Maintain large bore IV -Protonix drip -NPO -Monitor CBC q4-6hrs -Monitor coags -transfuse for Hgb<7 or symptomatic -Trend WBC -MAHESH Macdonald CC time 35mins
[2018-01-17] MEDS: MUPIROCIN 2% TOPICAL OINTMENT FOR DECOLONIZATION NS SCH (22:15)
[2018-01-17] MEDS: CHLORHEXIDINE GLUCONATE 4% CLEANSER FOR DECOLONIZATION TP SCH (22:16)
[2018-01-17 22:40] LABS: BASO % 0.2 % (0-2.0); EOS % 0.2 % (0-4.5); HEMATOCRIT 21.6 % (35.4-49); LYMPH % 18.4 % (8-40); MCH 28.8 pg (25.7-33.7); MCHC 32.5 g/dl (32.0-35.9); MEAN CELL VOLUME 88.6 fl (80-96); MEAN PLT VOLUME 8.7 fl (7.5-11.1); MONO % 5.4 % (3.8-10.2); NEUT % 75.8 % (42.8-82.8); PLATELET COUNT 230 K/MM3 (134-434); RBC 2.44 M/mm3 (4.00-5.60); RDW 14.8 % (11.9-15.9); WHITE BLOOD COUNT 13.8 K/mm3 (4.0-10.0)
[2018-01-17 22:46] VITALS: BMI 42.5
[2018-01-17] MEDS: LACTATED RINGERS SOLUTION 1,000 ML/1,000 ML INFUS.BAG IV SCH (22:57)
[2018-01-18 08:13] LABS: BASO % 0.7 % (0-2.0); EOS % 1.1 % (0-4.5); HEMATOCRIT 29.8 % (35.4-49); HEMOGLOBIN 10.2 GM/dL (11.7-16.9); LYMPH % 26.2 % (8-40); MCH 30.1 pg (25.7-33.7); MCHC 34.3 g/dl (32.0-35.9); MEAN CELL VOLUME 87.8 fl (80-96); MONO % 6.7 % (3.8-10.2); NEUT % 65.3 % (42.8-82.8); PLATELET COUNT 253 K/MM3 (134-434); RBC 3.39 M/mm3 (4.00-5.60); RDW 14.7 % (11.9-15.9); WHITE BLOOD COUNT 19.2 K/mm3 (4.0-10.0)
[2018-01-18 08:37] LABS: INR 1.23 (0.82-1.09); PROTHROMBIN TIME (PATIENT) 13.9 SEC (9.7-13.0)
[2018-01-18 09:03] LABS: ANION GAP 6 (8-16); BLOOD UREA NITROGEN 23 mg/dL (7-18); CHLORIDE 111 mmol/L (98-107); CO2 26 mmol/L (21-32); GLUCOSE,RANDOM 102 mg/dL (74-106); MAGNESIUM 2.1 mg/dL (1.8-2.4); POTASSIUM 4.4 mmol/L (3.5-5.1); SODIUM 143 mmol/L (136-145)
[2018-01-18 09:06] LABS: ALK PHOS 53 U/L (45-117); BILIRUBIN,TOTAL 1.4 mg/dL (0.2-1.0); CREATININE 0.8 mg/dL (0.7-1.3); SGOT/AST 12 U/L (15-37); SGPT/ALT 26 U/L (12-78); TOT PROT 5.5 g/dl (6.4-8.2)
[2018-01-18] MEDS ORDERED: PROPOFOL 20 ML ONE ×5 (09:45→09:46)
[2018-01-18] MEDS ORDERED: LIDOCAINE HCL 2% (20ML MULTI-DOSE VIAL) NR ONE (09:45)
[2018-01-18] MEDS ORDERED: MIDAZOLAM HCL 2 MG/2 ML SINGLE DOSE VIAL ONE (09:45)
[2018-01-18] MEDS ORDERED: ePHEDrine SULFATE 50 MG/1 ML AMPULE ONE (09:45)
[2018-01-18] MEDS ORDERED: SUCCINYLCHOLINE CHLORIDE 200 MG/10 ML VIAL ONE (09:45)
[2018-01-18] MEDS ORDERED: ERYTHROMYCIN INJECTION - 250 MG in SODIUM CHLORIDE 100 ML IVPB ONE (10:00)
--- NOTE | 2018-01-18 10:43 | EKG ---
Test Reason : Blood Pressure : / mmHG Vent. Rate : 120 BPM Atrial Rate : 120 BPM P-R Int : 134 ms QRS Dur : 074 ms QT Int : 320 ms P-R-T Axes : 047 034 058 degrees QTc Int : 452 ms SINUS TACHYCARDIA OTHERWISE NORMAL ECG NO PREVIOUS ECGS AVAILABLE Confirmed by LUZ ESTEVEZ MD ([id number]) on 01/18/2018 10:43:27 AM Referred By: Confirmed By:LUZ ESTEVEZ MD
[2018-01-18] MEDS: MUPIROCIN 2% TOPICAL OINTMENT FOR DECOLONIZATION NS SCH ×2 (10:48→22:08)
--- NOTE | 2018-01-18 10:48 | PN ---
Progress Note (short form) - Note Progress Note: PULMONARY/CCM Pt seen and examined in the ICU. No further bloody bowel movements. Transfused 2 units PRBC with appropriate response. Denies abdominal pain, lightheadedness, chest pain or shortness of breath. Last Vital Signs Temp Pulse Resp BP Pulse Ox 98.2 F 73 15 136/87 99 01/18/18 04:00 01/18/18 08:00 01/18/18 09:00 01/18/18 08:00 01/18/18 09:00 Intake & Output 01/15/18 01/16/18 01/17/18 01/18/18 23:59 23:59 23:59 23:59 Intake Total 200 1050 Output Total 1200 650 Balance -1000 400 Weight 123.06 kg 123.06 kg Gen: NAD at rest Heart: RRR Lung: decreased breath sounds at the bases Abd: soft, nontender Ext: no edema CBC, BMP 01/18/18 08:00 01/18/18 08:00 Active Medications Chlorhexidine Gluconate (Hibiclens For Decolonization -) 1 applic TP HS [facility] Last Admin: 01/17/18 22:16 Dose: 1 applic Pantoprazole Sodium 160 mg/ (Dextrose) 290 mls @ 14.5 mls/hr IVPB Q20H [facility] Last Admin: 01/17/18 22:02 Dose: 14.5 mls/hr Lactated Ringer's (Lactated Ringers Solution) 1,000 ml in 1,000 mls @ 100 mls/ hr IV ASDIR [facility] Last Admin: 01/17/18 22:57 Dose: 100 mls/hr Erythromycin Lactobionate 250 (mg/ Sodium Chloride) 100 mls @ 100 mls/hr IVPB ONCE ONE Stop: 01/18/18 10:59 Mupirocin (Bactroban Ointment (For Decolonization) -) 1 applic NS BID [facility] Stop: 01/22/18 21:59 Last Admin: 01/17/18 22:15 Dose: 1 applic A/P GI Bleed Acute Blood Loss Anemia - monitor H/H - transfuse as needed - protonix gtt - ensure large bore peripheral access - NPO - for endoscopy - mechanical DVT prophylaxis
[2018-01-18] MEDS: LACTATED RINGERS SOLUTION 1,000 ML/1,000 ML INFUS.BAG IV SCH ×2 (11:00→22:09)
[2018-01-18] MEDS ORDERED: EPINEPHrine 1:10,000 (P-F SYR) 1 MG/10 ML DISP.SYRIN IVPUSH ONE (12:20)
--- NOTE | 2018-01-18 12:40 | PN ---
Teaching Attending Note Name of Resident: Bravo Velasco SUBJECTIVE: Patient seen and examined. feels some epigastric discomfort but no dizziness, nausea, vomiting or pain otherwise. Awaiting EGD currently. OBJECTIVE: Vital Signs Period Temp Pulse Resp BP Sys/Ramos Pulse Ox Last 24 Hr 98.0 F-98.8 F 73-145 15-24 118-149/75-99 98-100 Intake & Output 01/15/18 01/16/18 01/17/18 01/18/18 23:59 23:59 23:59 23:59 Intake Total 200 1350 Output Total 1200 650 Balance -1000 700 Weight 271 lb 4.8 oz 271 lb 4.8 oz General: positive pallor, in bed in no acute distress Chest; CTAB, no rales or wheezing abdomen: soft, obese, NT throughout Extremities: no edema Active Medications Generic Name Dose Route Start Last Admin Trade Name Freq PRN Reason Stop Dose Admin Chlorhexidine Gluconate 1 applic 01/17/18 22:00 01/17/18 22:16 Hibiclens For Decolonization - TP 1 applic HS LEN Administration Pantoprazole Sodium 160 mg/ 290 mls @ 14.5 mls/hr 01/17/18 19:45 01/17/18 22: 02 Dextrose IVPB 14.5 mls/hr Q20H LEN Administration Lactated Ringer's 1,000 ml in 1,000 mls @ 100 mls/hr 01/17/18 22:45 01/17/18 22:57 Lactated Ringers Solution IV 100 mls/hr ASDIR LEN Administration Mupirocin 1 applic 01/17/18 22:00 01/18/18 10:48 Bactroban Ointment (For Decolonization) - NS 01/22/18 21:59 1 applic BID LEN Administration Laboratory Results - last 24 hr 01/17/18 01/17/18 01/17/18 16:03 16:18 16:23 WBC RBC Hgb Hct MCV MCH MCHC RDW Plt Count MPV Neutrophils % Lymphocytes % Monocytes % Eosinophils % Basophils % PT with INR INR PTT (Actin FS) D-Dimer Sodium 141 Potassium 4.6 Chloride 113 H Carbon Dioxide 21 D Anion Gap 7 L BUN 33 H D Creatinine 0.6 L D Creat Clearance w eGFR > 60 POC Glucometer 124.47996 Random Glucose 108 H Calcium 7.6 L Phosphorus 1.9 L Magnesium 2.1 Total Bilirubin 0.3 AST 14 L D ALT 34 D Alkaline Phosphatase 64 D Creatine Kinase 48 Troponin I 0.03 Total Protein 6.0 L D Albumin 3.0 L D TSH 0.45 Stool Occult Blood Positive Blood Type Antibody Screen Crossmatch 01/17/18 01/17/18 01/17/18 16:25 16:25 16:25 WBC 16.4 H D RBC 3.98 L Hgb 11.5 L D Hct 35.5 MCV 89.0 MCH 28.9 MCHC 32.5 RDW 15.0 D Plt Count 320 D MPV 9.7 Neutrophils % 84.6 H D Lymphocytes % 9.4 D Monocytes % 5.2 Eosinophils % 0.3 D Basophils % 0.5 PT with INR 13.90 H INR 1.23 H PTT (Actin FS) D-Dimer Sodium Cancelled Potassium Cancelled Chloride Cancelled Carbon Dioxide Cancelled Anion Gap Cancelled BUN Cancelled Creatinine Cancelled Creat Clearance w eGFR Cancelled POC Glucometer Random Glucose Cancelled Calcium Cancelled Phosphorus Cancelled Magnesium Cancelled Total Bilirubin Cancelled AST Cancelled ALT Cancelled Alkaline Phosphatase Cancelled Creatine Kinase Cancelled Troponin I Cancelled Total Protein Cancelled Albumin Cancelled TSH Cancelled Stool Occult Blood Blood Type Antibody Screen Crossmatch 01/17/18 01/17/18 01/17/18 16:25 17:33 18:47 WBC 18.1 H RBC 3.66 L Hgb 10.7 L Hct 32.3 L MCV 88.1 MCH 29.2 MCHC 33.1 RDW 14.9 Plt Count 297 MPV 9.4 Neutrophils % 87.2 H Lymphocytes % 8.4 Monocytes % 3.9 Eosinophils % 0.0 D Basophils % 0.5 PT with INR INR PTT (Actin FS) D-Dimer < 200 Sodium Potassium Chloride Carbon Dioxide Anion Gap BUN Creatinine Creat Clearance w eGFR POC Glucometer Random Glucose Calcium Phosphorus Magnesium Total Bilirubin AST ALT Alkaline Phosphatase Creatine Kinase Troponin I Total Protein Albumin TSH Stool Occult Blood Blood Type O POSITIVE Antibody Screen Negative Crossmatch See Detail 01/17/18 01/17/18 01/18/18 22:30 23:31 08:00 WBC 13.8 H RBC 2.44 L D Hgb 7.0 L D Hct 21.6 L D MCV 88.6 MCH 28.8 MCHC 32.5 RDW 14.8 Plt Count 230 D MPV 8.7 Neutrophils % 75.8 Lymphocytes % 18.4 D Monocytes % 5.4 Eosinophils % 0.2 D Basophils % 0.2 PT with INR 13.90 H INR 1.23 H PTT (Actin FS) 27.0 D-Dimer Sodium Potassium Chloride Carbon Dioxide Anion Gap BUN Creatinine Creat Clearance w eGFR POC Glucometer Random Glucose Calcium Phosphorus Magnesium Total Bilirubin AST ALT Alkaline Phosphatase Creatine Kinase Troponin I Total Protein Albumin TSH Stool Occult Blood Blood Type O POSITIVE Antibody Screen Crossmatch 01/18/18 01/18/18 08:00 08:00 WBC 19.2 H D RBC 3.39 L D Hgb 10.2 L D Hct 29.8 L D MCV 87.8 MCH 30.1 MCHC 34.3 RDW 14.7 Plt Count 253 MPV 9.0 Neutrophils % 65.3 Lymphocytes % 26.2 D Monocytes % 6.7 Eosinophils % 1.1 D Basophils % 0.7 D PT with INR INR PTT (Actin FS) D-Dimer Sodium 143 Potassium 4.4 Chloride 111 H Carbon Dioxide 26 D Anion Gap 6 L BUN 23 H D Creatinine 0.8 D Creat Clearance w eGFR > 60 POC Glucometer Random Glucose 102 Calcium 8.0 L Phosphorus Magnesium 2.1 Total Bilirubin 1.4 H D AST 12 L ALT 26 D Alkaline Phosphatase 53 Creatine Kinase Troponin I Total Protein 5.5 L Albumin 3.0 L TSH Stool Occult Blood Blood Type Antibody Screen Crossmatch ASSESSMENT AND PLAN: 32 yom with Acute GI haemorrhage, syncope -Acute GI haemorrhage, highly suspicious for bleeding ulcer given recent prednisone/ibuprofen use, r/o other etiologies, low suspicion for lower GI bleed -Acute blood loss anemia from above s/p 2 units PRBC -Syncope, from acute GIB compounded by hypovolumia and vasovagal from bowel movement with positional change, presentation not suggestive of cardiac/ neurological etiology -Sinus tachycardia with orthostasis from above -Recent panniculitis resolved -Obesity Plan: s/p 2 units PRBC with appropriate response. For EGD today, will follow up. Continue NPO, protonix drip and ICU monitoring. Further plan per EGD results. Plan discussed with patient and [facility]. total critical care time 40 min.
[2018-01-18] MEDS ORDERED: morphine SULFATE 4 MG/ML VIAL IVPUSH PRN (12:59)
[2018-01-18] MEDS ORDERED: ONDANSETRON 4 MG/2 ML VIAL IVPUSH PRN (13:05)
--- NOTE | 2018-01-18 13:05 | PN ---
Progress Note (short form) - Note Progress Note: GI Procedure NOte ( : Please see EGD report placed into chart. A duodenal bulb ulcer with a visible vessel was seen. The vessel was injected with epinephrine and cauterized. He now has pain and vomiting related to these interventions for which MS has been ordered. Will order Zofran as well. Will continue PPI infusion. If pain subsides will try clear liquids. Problem List - Problems (1) Bleeding Code(s): R58 - HEMORRHAGE, NOT ELSEWHERE CLASSIFIED
[2018-01-18] MEDS ORDERED: PANTOPRAZOLE SODIUM 160 MG in DEXTROSE 5%-WATER - 250 ML IVPB SCH (14:00)
[2018-01-18 16:03] LABS: BASO % 0.2 % (0-2.0); EOS % 0.3 % (0-4.5); HEMATOCRIT 29.1 % (35.4-49); HEMOGLOBIN 10.2 GM/dL (11.7-16.9); LYMPH % 13.9 % (8-40); MCH 30.4 pg (25.7-33.7); MCHC 34.8 g/dl (32.0-35.9); MEAN CELL VOLUME 87.2 fl (80-96); MEAN PLT VOLUME 9.2 fl (7.5-11.1); MONO % 4.3 % (3.8-10.2); NEUT % 81.3 % (42.8-82.8); PLATELET COUNT 221 K/MM3 (134-434); RBC 3.34 M/mm3 (4.00-5.60); RDW 14.6 % (11.9-15.9); WHITE BLOOD COUNT 15.1 K/mm3 (4.0-10.0)
[2018-01-18] MEDS: MAG HYDROX/AL HYDROX/SIMETH 30 ML UNIT-DOSE CUP PO SCH (20:00)
[2018-01-18] MEDS: CHLORHEXIDINE GLUCONATE 4% CLEANSER FOR DECOLONIZATION TP SCH (22:08)
[2018-01-19 06:01] LABS: BASO % 0.4 % (0-2.0); HEMATOCRIT 26.6 % (35.4-49); HEMOGLOBIN 9.1 GM/dL (11.7-16.9); LYMPH % 27.5 % (8-40); MCH 29.7 pg (25.7-33.7); MCHC 34.1 g/dl (32.0-35.9); MEAN CELL VOLUME 87.1 fl (80-96); MONO % 5.3 % (3.8-10.2); NEUT % 64.8 % (42.8-82.8); PLATELET COUNT 229 K/MM3 (134-434); RBC 3.05 M/mm3 (4.00-5.60); RDW 14.6 % (11.9-15.9); WHITE BLOOD COUNT 14.3 K/mm3 (4.0-10.0)
[2018-01-19 06:16] LABS: INR 1.25 (0.82-1.09); PROTHROMBIN TIME (PATIENT) 14.1 SEC (9.7-13.0)
[2018-01-19] MEDS: MAG HYDROX/AL HYDROX/SIMETH 30 ML UNIT-DOSE CUP PO SCH ×4 (06:16→18:17)
[2018-01-19 06:18] LABS: ACTIVATED PTT 23.7 SECONDS (26.9-34.4)
[2018-01-19 06:31] LABS: CHLORIDE 107 mmol/L (98-107); POTASSIUM 4.1 mmol/L (3.5-5.1); SODIUM 140 mmol/L (136-145)
[2018-01-19 06:38] LABS: ALBUMIN 3.1 g/dl (3.4-5.0); ALK PHOS 54 U/L (45-117); ANION GAP 6 (8-16); BILIRUBIN,TOTAL 0.9 mg/dL (0.2-1.0); BLOOD UREA NITROGEN 14 mg/dL (7-18); CALCIUM 8.2 mg/dL (8.5-10.1); CO2 27 mmol/L (21-32); CREATININE 0.8 mg/dL (0.7-1.3); GLUCOSE,RANDOM 95 mg/dL (74-106); SGOT/AST 15 U/L (15-37); SGPT/ALT 27 U/L (12-78); TOT PROT 5.4 g/dl (6.4-8.2)
--- NOTE | 2018-01-19 08:46 | PN ---
Physical Exam: SUBJECTIVE: Patient seen and examined. EGD yesterday found duodenal bulb ulcer; 1x melena after EGD. No event O/N. [place] dizzy/lightheaded this AM after standing for several minutes. Tolerated Clears for breakfast w/o nausea or vomiting. OBJECTIVE: Vital Signs Period Temp Pulse Resp BP Sys/Ramos Pulse Ox Last 24 Hr 97.8 F-98.4 F 78-110 15-22 101-170/50-102 99-99 GENERAL: lying in bed, aaox3, nad HEENT: sclera anicteric, conjunctiva clear, mmm LUNGS: CTAB HEART: tachycardia, regular rhythm, normal S1/S2, no m/r/g ABDOMEN: soft, obese, ntnd, +positive BS EXTREMITIES: 2+ DP pulses, wwp, no edema CBC, BMP 01/19/18 13:34 01/19/18 05:40 Hepatic Panel Total Bilirubin 0.9 mg/dL (0.2-1.0) D 01/19/18 05:40 AST 15 U/L (15-37) D 01/19/18 05:40 ALT 27 U/L (12-78) 01/19/18 05:40 Alkaline Phosphatase 54 U/L (45-117) 01/19/18 05:40 Albumin 3.1 g/dl (3.4-5.0) L 01/19/18 05:40 Active Medications Al Hydroxide/Mg Hydroxide (Mylanta Oral Suspension -) 30 ml PO Q6HPO [facility] Last Admin: 01/19/18 11:27 Dose: 30 ml Chlorhexidine Gluconate (Hibiclens For Decolonization -) 1 applic TP HS [facility] Last Admin: 01/18/18 22:08 Dose: 1 applic Fluticasone Propionate (Flonase -) 1 spray NS DAILY [facility] Last Admin: 01/19/18 12:45 Dose: 1 spr Pantoprazole Sodium 160 mg/ (Dextrose) 290 mls @ 14.5 mls/hr IVPB Q20H LEN PRN Reason: 8 MG/HR Last Admin: 01/19/18 12:42 Dose: 14.5 mls/hr Morphine Sulfate (Morphine Sulfate) 4 mg IVPUSH Q4H PRN PRN Reason: PAIN LEVEL 4 - 6 Last Admin: 01/18/18 13:20 Dose: 4 mg Mupirocin (Bactroban Ointment (For Decolonization) -) 1 applic NS BID [facility] Stop: 01/22/18 21:59 Last Admin: 01/19/18 11:12 Dose: 1 applic Ondansetron HCl (Zofran Injection) 4 mg IVPUSH Q4H PRN PRN Reason: NAUSEA AND/OR VOMITING Last Admin: 01/18/18 13:25 Dose: 4 mg ASSESSMENT/PLAN: 32yo young man who presents with syncope and melena in setting of steroid/NSAID use and found to have acute UGIB. #UGIB 2/2 duodenal ulcer s/p epi/cautery (01/18) -s/p 2U PRBC, H&H stable, repeat CBC in PM -GI consulted -c/w PPI gtt, consider switch to PO in 24h -Advance diet as tolerated #FEN IVF lytes wnl Clears #PPX DVT - SCDs GI - Protonix gtt DISPO: transfer to tele FULL code d/w Dr. Rod Flores MD PGY1 - Internal Medicine Visit type - Emergency Visit Emergency Visit: No - New Patient This patient is new to me today: Yes Date on this admission: 01/19/18 - Critical Care Critical Care patient: Yes Total Critical Care Time (in minutes): 40 Critical Care Statement: The care of this patient involved high complexity decision making to prevent further life threatening deterioration of the patient 's condition and/or to evaluate & treat vital organ system(s) failure or risk of failure.
--- NOTE | 2018-01-19 10:22 | PN ---
Progress Note, Physician History of Present Illness: orthostatic changes noted this a.m. while standing up, otherwise asymptomatic. No BMs since yesterday. No dysphagia, odynophagia, dyspepsia, abdominal pain. Tolerating liquid diet. - Current Medication List Current Medications: Active Medications Al Hydroxide/Mg Hydroxide (Mylanta Oral Suspension -) 30 ml PO Q6HPO [facility] Last Admin: 01/19/18 06:16 Dose: Not Given Chlorhexidine Gluconate (Hibiclens For Decolonization -) 1 applic TP HS [facility] Last Admin: 01/18/18 22:08 Dose: 1 applic Pantoprazole Sodium 160 mg/ (Dextrose) 250 mls @ 12.5 mls/hr IVPB Q20H LEN PRN Reason: 8 MG/HR Last Admin: 01/18/18 14:00 Dose: 12.5 mls/hr Morphine Sulfate (Morphine Sulfate) 4 mg IVPUSH Q4H PRN PRN Reason: PAIN LEVEL 4 - 6 Last Admin: 01/18/18 13:20 Dose: 4 mg Mupirocin (Bactroban Ointment (For Decolonization) -) 1 applic NS BID [facility] Stop: 01/22/18 21:59 Last Admin: 01/18/18 22:08 Dose: 1 applic Ondansetron HCl (Zofran Injection) 4 mg IVPUSH Q4H PRN PRN Reason: NAUSEA AND/OR VOMITING Last Admin: 01/18/18 13:25 Dose: 4 mg - Objective Vital Signs: Vital Signs Temperature 98.4 F 01/19/18 06:00 Pulse Rate 104 H 01/19/18 08:49 Respiratory Rate 18 01/19/18 08:49 Blood Pressure 125/77 01/19/18 08:49 O2 Sat by Pulse Oximetry (%) 99 01/18/18 21:00 Constitutional: Yes: Well Nourished, No Distress, Calm Eyes: Yes: Conjunctiva Clear HENT: Yes: Atraumatic Neck: Yes: Supple Cardiovascular: Yes: Regular Rate and Rhythm Respiratory: Yes: Regular Gastrointestinal: Yes: Normal Bowel Sounds, Soft Neurological: Yes: Alert, Oriented Labs: CBC, BMP 01/19/18 05:40 01/19/18 05:40 INR, PTT INR 1.25 (0.82-1.09) H 01/19/18 05:40 Laboratory Last Values WBC 14.3 K/mm3 (4.0-10.0) H 01/19/18 05:40 RBC 3.05 M/mm3 (4.00-5.60) L 01/19/18 05:40 Hgb 9.1 GM/dL (11.7-16.9) L D 01/19/18 05:40 Hct 26.6 % (35.4-49) L 01/19/18 05:40 MCV 87.1 fl (80-96) 01/19/18 05:40 MCH 29.7 pg (25.7-33.7) 01/19/18 05:40 MCHC 34.1 g/dl (32.0-35.9) 01/19/18 05:40 RDW 14.6 % (11.9-15.9) 01/19/18 05:40 Plt Count 229 K/MM3 (134-434) 01/19/18 05:40 MPV 9.0 fl (7.5-11.1) 01/19/18 05:40 Neutrophils % 64.8 % (42.8-82.8) D 01/19/18 05:40 Lymphocytes % 27.5 % (8-40) D 01/19/18 05:40 Monocytes % 5.3 % (3.8-10.2) 01/19/18 05:40 Eosinophils % 2.0 % (0-4.5) D 01/19/18 05:40 Basophils % 0.4 % (0-2.0) 01/19/18 05:40 PT with INR 14.10 SEC (9.7-13.0) H 01/19/18 05:40 INR 1.25 (0.82-1.09) H 01/19/18 05:40 PTT (Actin FS) 23.7 SECONDS (26.9-34.4) L 01/19/18 05:40 D-Dimer < 200 ng/ml (0-500) 01/17/18 16:25 Sodium 140 mmol/L (136-145) 01/19/18 05:40 Potassium 4.1 mmol/L (3.5-5.1) 01/19/18 05:40 Chloride 107 mmol/L (98-107) 01/19/18 05:40 Carbon Dioxide 27 mmol/L (21-32) 01/19/18 05:40 Anion Gap 6 (8-16) L 01/19/18 05:40 BUN 14 mg/dL (7-18) D 01/19/18 05:40 Creatinine 0.8 mg/dL (0.7-1.3) 01/19/18 05:40 Creat Clearance w eGFR > 60 (>60) 01/19/18 05:40 POC Glucometer 124.01234 UNITS (80-120) 01/17/18 16:18 Random Glucose 95 mg/dL (74-106) 01/19/18 05:40 Calcium 8.2 mg/dL (8.5-10.1) L 01/19/18 05:40 Phosphorus 3.0 mg/dL (2.5-4.9) D 01/19/18 05:40 Magnesium 2.0 mg/dL (1.8-2.4) 01/19/18 05:40 Ferritin 190.484 ng/ml (16.4-293.9) 01/19/18 05:40 Total Bilirubin 0.9 mg/dL (0.2-1.0) D 01/19/18 05:40 AST 15 U/L (15-37) D 01/19/18 05:40 ALT 27 U/L (12-78) 01/19/18 05:40 Alkaline Phosphatase 54 U/L (45-117) 01/19/18 05:40 Creatine Kinase Cancelled 01/17/18 16:25 Troponin I Cancelled 01/17/18 16:25 C-Reactive Protein 1.4 MG/DL (0.00-0.3) H 01/19/18 05:40 Total Protein 5.4 g/dl (6.4-8.2) L 01/19/18 05:40 Albumin 3.1 g/dl (3.4-5.0) L 01/19/18 05:40 Total Amylase 67 U/L (25-115) 01/19/18 05:40 Lipase 128 U/L (73-393) 01/19/18 05:40 TSH Cancelled 01/17/18 16:25 Stool Occult Blood Positive (NEGATIVE) 01/17/18 16:03 Blood Type O POSITIVE 01/17/18 23:31 Antibody Screen Negative 01/17/18 17:33 Crossmatch See Detail 01/17/18 17:33 Problem List - Problems (1) Duodenal ulcer Code(s): K26.9 - DUODENAL ULCER, UNSP ACUTE OR CHRONIC, W/O HEMOR OR PERF (2) Bleeding Code(s): R58 - HEMORRHAGE, NOT ELSEWHERE CLASSIFIED (3) Gastrointestinal bleeding Code(s): K92.2 - GASTROINTESTINAL HEMORRHAGE, UNSPECIFIED Assessment/Plan continue current care. Repeat CBC today. Monitor for melena, or hematochezia. Low threshold to repeat upper endoscopy.
[2018-01-19] MEDS ORDERED: FLUTICASONE PROP 0.05% 16 GM NASAL SPRAY NS SCH (10:30)
[2018-01-19] MEDS ORDERED: PANTOPRAZOLE SODIUM 160 MG in DEXTROSE 5%-WATER - 250 ML IVPB SCH (10:54)
--- NOTE | 2018-01-19 10:57 | PN ---
Teaching Attending Note Name of Resident: Cynthia Brandt ATTENDING PHYSICIAN STATEMENT I saw and evaluated the patient. I reviewed the resident's note and discussed the case with the resident. I agree with the resident's findings and plan as documented. SUBJECTIVE: Pt seen and examined in the ICU. s/p EGD showing duodenal ulcer with visible vessel s/p epi injection and cautery. No bowel movements overnight. OBJECTIVE: Last Vital Signs Temp Pulse Resp BP Pulse Ox 98.3 F 102 H 18 129/79 99 01/19/18 10:00 01/19/18 10:00 01/19/18 10:00 01/19/18 10:00 01/18/18 21:00 Intake & Output 01/16/18 01/17/18 01/18/18 01/19/18 23:59 23:59 23:59 23:59 Intake Total 200 3464.5 1450 Output Total 1200 1710 Balance -1000 1754.5 1450 Weight 123.06 kg 123.06 kg 122.651 kg Gen: NAD at rest Heart: RRR Lung: decreased breath sounds at the bases Abd: soft, nontender Ext: no edema CBC, BMP 01/19/18 05:40 01/19/18 05:40 Active Medications Al Hydroxide/Mg Hydroxide (Mylanta Oral Suspension -) 30 ml PO Q6HPO [facility] Last Admin: 01/19/18 06:16 Dose: Not Given Chlorhexidine Gluconate (Hibiclens For Decolonization -) 1 applic TP HS [facility] Last Admin: 01/18/18 22:08 Dose: 1 applic Fluticasone Propionate (Flonase -) 1 spray NS DAILY [facility] Pantoprazole Sodium 160 mg/ (Dextrose) 290 mls @ 14.5 mls/hr IVPB Q20H LEN PRN Reason: 8 MG/HR Morphine Sulfate (Morphine Sulfate) 4 mg IVPUSH Q4H PRN PRN Reason: PAIN LEVEL 4 - 6 Last Admin: 01/18/18 13:20 Dose: 4 mg Mupirocin (Bactroban Ointment (For Decolonization) -) 1 applic NS BID [facility] Stop: 01/22/18 21:59 Last Admin: 01/18/18 22:08 Dose: 1 applic Ondansetron HCl (Zofran Injection) 4 mg IVPUSH Q4H PRN PRN Reason: NAUSEA AND/OR VOMITING Last Admin: 01/18/18 13:25 Dose: 4 mg ASSESSMENT AND PLAN: GI Bleed from Duodenal Ulcer s/p injection/cautery Acute Blood Loss Anemia - monitor H/H - transfuse as needed - continue protonix gtt - ensure large bore peripheral access - PO per GI - mechanical DVT prophylaxis - can monitor on floor
[2018-01-19] MEDS: MUPIROCIN 2% TOPICAL OINTMENT FOR DECOLONIZATION NS SCH (11:12)
[2018-01-19] MEDS ORDERED: PT OWN MED DRAWER 7, Y5N ONE (12:52)
--- NOTE | 2018-01-19 12:54 | PN ---
Teaching Attending Note Name of Resident: Kathryn Flores ATTENDING PHYSICIAN STATEMENT I saw and evaluated the patient. I reviewed the resident's note and discussed the case with the resident. I agree with the resident's findings and plan as documented with exceptions below. SUBJECTIVE: Patient seen and examined. Episode of dizziness while getting up today, no nausea, vomiting abdominal pain. Tried clears this AM. 1 small dark BM post endoscopy yesterday. Otherwise doing well. OBJECTIVE: Vital Signs Period Temp Pulse Resp BP Sys/Ramos Pulse Ox Last 24 Hr 97.8 F-98.4 F 78-134 15-22 101-170/50-102 99 Intake & Output 01/16/18 01/17/18 01/18/18 01/19/18 23:59 23:59 23:59 23:59 Intake Total 200 3464.5 1450 Output Total 1200 1710 Balance -1000 1754.5 1450 Weight 271 lb 4.8 oz 271 lb 4.8 oz 270 lb 6.4 oz General: sitting in bed in no acute distress Chest: CTAB, no rales or wheezing Abdomen:soft, obese, NT throughout, no voluntary or involuntary guarding or rigidity Extremities: no edema Active Medications Generic Name Dose Route Start Last Admin Trade Name Freq PRN Reason Stop Dose Admin Al Hydroxide/Mg Hydroxide 30 ml 01/18/18 20:00 01/19/18 11:27 Mylanta Oral Suspension - PO 30 ml Q6HPO LEN Administration Chlorhexidine Gluconate 1 applic 01/17/18 22:00 01/18/18 22:08 Hibiclens For Decolonization - TP 1 applic HS LEN Administration Fluticasone Propionate 1 spray 01/19/18 10:30 01/19/18 12:45 Flonase - NS 1 spr DAILY LEN Administration Pantoprazole Sodium 160 mg/ 290 mls @ 14.5 mls/hr 01/19/18 10:54 01/19/18 12: 42 Dextrose IVPB 14.5 mls/hr Q20H LEN Administration 8 MG/HR Morphine Sulfate 4 mg 01/18/18 12:59 01/18/18 13:20 Morphine Sulfate IVPUSH 4 mg Q4H PRN Administration PAIN LEVEL 4 - 6 Mupirocin 1 applic 01/17/18 22:00 01/19/18 11:12 Bactroban Ointment (For Decolonization) - NS 05/03/18 21:59 1 applic BID LEN Administration Ondansetron HCl 4 mg 01/18/18 13:05 01/18/18 13:25 Zofran Injection IVPUSH 4 mg Q4H PRN Administration NAUSEA AND/OR VOMITING Laboratory Results - last 24 hr 01/18/18 01/19/18 01/19/18 15:35 05:40 05:40 WBC 15.1 H 14.3 H RBC 3.34 L 3.05 L Hgb 10.2 L 9.1 L D Hct 29.1 L 26.6 L MCV 87.2 87.1 MCH 30.4 29.7 MCHC 34.8 34.1 RDW 14.6 14.6 Plt Count 221 229 MPV 9.2 9.0 Neutrophils % 81.3 D 64.8 D Lymphocytes % 13.9 D 27.5 D Monocytes % 4.3 5.3 Eosinophils % 0.3 2.0 D Basophils % 0.2 0.4 PT with INR 14.10 H INR 1.25 H PTT (Actin FS) 23.7 L Sodium Potassium Chloride Carbon Dioxide Anion Gap BUN Creatinine Creat Clearance w eGFR Random Glucose Calcium Phosphorus Magnesium Ferritin Total Bilirubin AST ALT Alkaline Phosphatase C-Reactive Protein Total Protein Albumin Total Amylase Lipase 01/19/18 01/19/18 05:40 05:40 WBC RBC Hgb Hct MCV MCH MCHC RDW Plt Count MPV Neutrophils % Lymphocytes % Monocytes % Eosinophils % Basophils % PT with INR INR PTT (Actin FS) Sodium 140 Potassium 4.1 Chloride 107 Carbon Dioxide 27 Anion Gap 6 L BUN 14 D Creatinine 0.8 Creat Clearance w eGFR > 60 Random Glucose 95 Calcium 8.2 L Phosphorus 3.0 D Magnesium 2.0 Ferritin 190.484 Total Bilirubin 0.9 D AST 15 D ALT 27 Alkaline Phosphatase 54 C-Reactive Protein 1.4 H Total Protein 5.4 L Albumin 3.1 L Total Amylase 67 Lipase 128 ASSESSMENT AND PLAN: 32 yom with Acute GI haemorrhage, syncope -Acute GI haemorrhage,from duodenal ulcer s/p Epinephrine/Cautery, likely exacerbated by recent prednisone/NSAIDs use -Acute blood loss anemia from above s/p 2 units PRBC -Syncope, from acute GIB compounded by hypovolumia and vasovagal from bowel movement with positional change, presentation not suggestive of cardiac/ neurological etiology -Sinus tachycardia with orthostasis from above -Recent panniculitis resolved -Obesity Plan: EGD noted, duodenal ulcer with visible vessel s/p Epinephrine/Cautery. h/h mildly drifting down. Overall improved. Repeat CBC this afternoon. Discussed with GI, continue protonix drip for now, transition to PO protonix in 24 hours if tolerating PO well, h/h stable. s/p 2 units PRBC with appropriate response. Continue IVF for now, monitor for new dizziness. Patient advised to avoid ASA/NSAIDs and steroids for now. Plan discussed with patient, Dr. Vila. Agree with transfer to telemetry if h/h stable and no concerns. total critical care time spent in ICU 40 min.
[2018-01-19 13:53] LABS: HEMATOCRIT 26.3 % (35.4-49); MCH 29.9 pg (25.7-33.7); MCHC 34.3 g/dl (32.0-35.9); MEAN CELL VOLUME 87.2 fl (80-96); MEAN PLT VOLUME 8.4 fl (7.5-11.1); PLATELET COUNT 220 K/MM3 (134-434); RBC 3.02 M/mm3 (4.00-5.60); RDW 14.2 % (11.9-15.9); WHITE BLOOD COUNT 13.9 K/mm3 (4.0-10.0)
--- NOTE | 2018-01-19 14:02 | MSN ---
Progress Note (short form) - Note Progress Note: SUBJECTIVE: Patient seen and examined this morning. Patient is s/p EGD with epinephrine injection/ cautery of vessel in duodenal ulcer. Patient had an episode of lightheadedness after standing for 5 minutes associated with nausea. During episode, tachycardia noted (134 bpm), blood pressure maintained at 136/ 98. No associated chest pain, SOB, or diaphoresis. Dizziness quickly relieved by supine position. Overnight tachycardia (100-134 bpm) noted on hall monitor. Patient had one small melanic bowel movement after EGD yesterday. No BM this am. Tolerating clear liquid diet. Overall, patient feels much improved. Admits to mild nausea and minimal orthostatic symptoms. Denies fever, odynophagia, abdominal pain, or dysuria. OBJECTIVE: Vital Signs Period Temp Pulse Resp BP Sys/Ramos Pulse Ox Last 24 Hr 97.8 F-98.6 F 78-134 15-22 101-150/50-98 99 GENERAL: Pale young man standing by edge of bed in no acute distress, awake, alert, and orientated HEAD: Normal without evidence of trauma EYES: Conjuctival pallor, no injection, extra-occular muscles intact MOUTH: No lesions or plaques, uvula midline NECK: No JVD, no lymphadenopathy, no thyromegaly, trachea midline HEART: Regular at 100 bpm, +S1/S2, no murmurs, rubs, or gallops LUNGS: Clear to auscultation b/l, decreased breath sounds at bases b/l, no wheezes or crackles ABDOMEN: Hypoactive bowel sounds, non-distended, non-tender, no masses or organomegaly, no rebound or guarding EXTREMITIES: 2 + pulses b/l, no edema, no calf tenderness NEURO: CN II-XII grossly intact, normal speech, muscle strength 5/5 PSYCH: Pleasant mood, cooperative Laboratory Results - last 24 hr 01/18/18 01/19/18 01/19/18 15:35 05:40 05:40 WBC 15.1 H 14.3 H RBC 3.34 L 3.05 L Hgb 10.2 L 9.1 L D Hct 29.1 L 26.6 L MCV 87.2 87.1 MCH 30.4 29.7 MCHC 34.8 34.1 RDW 14.6 14.6 Plt Count 221 229 MPV 9.2 9.0 Neutrophils % 81.3 D 64.8 D Lymphocytes % 13.9 D 27.5 D Monocytes % 4.3 5.3 Eosinophils % 0.3 2.0 D Basophils % 0.2 0.4 PT with INR 14.10 H INR 1.25 H PTT (Actin FS) 23.7 L Sodium Potassium Chloride Carbon Dioxide Anion Gap BUN Creatinine Creat Clearance w eGFR Random Glucose Calcium Phosphorus Magnesium Ferritin Total Bilirubin AST ALT Alkaline Phosphatase C-Reactive Protein Total Protein Albumin Total Amylase Lipase 01/19/18 01/19/18 05:40 05:40 WBC RBC Hgb Hct MCV MCH MCHC RDW Plt Count MPV Neutrophils % Lymphocytes % Monocytes % Eosinophils % Basophils % PT with INR INR PTT (Actin FS) Sodium 140 Potassium 4.1 Chloride 107 Carbon Dioxide 27 Anion Gap 6 L BUN 14 D Creatinine 0.8 Creat Clearance w eGFR > 60 Random Glucose 95 Calcium 8.2 L Phosphorus 3.0 D Magnesium 2.0 Ferritin 190.484 Total Bilirubin 0.9 D AST 15 D ALT 27 Alkaline Phosphatase 54 C-Reactive Protein 1.4 H Total Protein 5.4 L Albumin 3.1 L Total Amylase 67 Lipase 128 IMAGING: CXR: No acute pathology EKG: Sinus tachycardia. No T-wave inversions or ST-segment changes. Normal QTc. ASSESSMENT/PLAN: 32 yr old male with hx of recently resolved panniculitis treated with prednisone and ibuprofen presented to ED after a syncopal episode and 3 melanic bowel movements and was found to have a bleeding duodenal bulb ulcer. #Acute upper GI hemorrhage-s/p EGD with cautery of duodenal ulcer; s/p 2 units of PRBC -Ulcer likely exacerbated by recent course of prednisone and ibuprofen-avoid NSAIDS -Continue protonix IV today, transition to protonix PO in 24 hr if H and H stable -Maintain peripheral IV access; transfuse if Hb<7; Hb decreased from 10.2 (4- 29) to 9.1 (4-30), repeat H and H this afternoon -Advance diet to GI soft as tolerated #Syncope-likely due to acute hemorrhagic anemia and hypovolemia -S/p 2 units PRBC, continue to monitor H and H, 1 gram decrease in hemoglobin overnight, repeat H and H this afternoon -Unlikely cardiac etiology, sinus tachycardia on monitor, maintain cardiac monitoring #Panniculitis-resolved -Avoid NSAIDS/aspirin in the future #F/E/N -Clear liquid diet, advance to GI soft for dinner -1/2 NS at 75 ml/hr #DVT prophylaxis -SCDs #Dispo-transfer to telemetry
--- NOTE | 2018-01-19 15:22 | PN ---
Physical Exam: SUBJECTIVE: Patient seen and examined in the ICU. [place] dizzy/lightheaded after standing for several minutes this morning. Pt tolerated clear liquid diet for breakfast sans nausea or vomiting. Pt denies headache, chest pain, sob, abdominal pain, fever, chills. OBJECTIVE: Vital Signs Period Temp Pulse Resp BP Sys/Ramos Pulse Ox Last 24 Hr 97.8 F-98.6 F 78-134 16-22 101-150/50-98 99 GENERAL: The patient is awake, alert, and fully oriented, in no acute distress. LUNGS: Breath sounds equal, clear to auscultation bilaterally, no wheezes, no crackles, no accessory muscle use. HEART: Regular rate and rhythm, S1, S2 without murmur, rub or gallop. ABDOMEN: Soft, nontender, nondistended, normoactive bowel sounds, no guarding. EXTREMITIES: Warm, well-perfused, no edema. NEUROLOGICAL: Cranial nerves II through XII grossly intact. Normal speech. PSYCH: Normal mood, normal affect. Laboratory Results - last 24 hr 01/18/18 01/19/18 01/19/18 15:35 05:40 05:40 WBC 15.1 H 14.3 H RBC 3.34 L 3.05 L Hgb 10.2 L 9.1 L D Hct 29.1 L 26.6 L MCV 87.2 87.1 MCH 30.4 29.7 MCHC 34.8 34.1 RDW 14.6 14.6 Plt Count 221 229 MPV 9.2 9.0 Neutrophils % 81.3 D 64.8 D Lymphocytes % 13.9 D 27.5 D Monocytes % 4.3 5.3 Eosinophils % 0.3 2.0 D Basophils % 0.2 0.4 PT with INR 14.10 H INR 1.25 H PTT (Actin FS) 23.7 L Sodium Potassium Chloride Carbon Dioxide Anion Gap BUN Creatinine Creat Clearance w eGFR Random Glucose Calcium Phosphorus Magnesium Ferritin Total Bilirubin AST ALT Alkaline Phosphatase C-Reactive Protein Total Protein Albumin Total Amylase Lipase 01/19/18 01/19/18 01/19/18 05:40 05:40 13:34 WBC 13.9 H RBC 3.02 L Hgb 9.0 L Hct 26.3 L MCV 87.2 MCH 29.9 MCHC 34.3 RDW 14.2 Plt Count 220 MPV 8.4 Neutrophils % Lymphocytes % Monocytes % Eosinophils % Basophils % PT with INR INR PTT (Actin FS) Sodium 140 Potassium 4.1 Chloride 107 Carbon Dioxide 27 Anion Gap 6 L BUN 14 D Creatinine 0.8 Creat Clearance w eGFR > 60 Random Glucose 95 Calcium 8.2 L Phosphorus 3.0 D Magnesium 2.0 Ferritin 190.484 Total Bilirubin 0.9 D AST 15 D ALT 27 Alkaline Phosphatase 54 C-Reactive Protein 1.4 H Total Protein 5.4 L Albumin 3.1 L Total Amylase 67 Lipase 128 Active Medications Generic Name Dose Route Start Last Admin Trade Name Freq PRN Reason Stop Dose Admin Al Hydroxide/Mg Hydroxide 30 ml 01/18/18 20:00 01/19/18 11:27 Mylanta Oral Suspension - PO 30 ml Q6HPO LEN Administration Chlorhexidine Gluconate 1 applic 01/17/18 22:00 01/18/18 22:08 Hibiclens For Decolonization - TP 1 applic HS LEN Administration Fluticasone Propionate 1 spray 01/19/18 10:30 01/19/18 12:45 Flonase - NS 1 spr DAILY LEN Administration Pantoprazole Sodium 160 mg/ 290 mls @ 14.5 mls/hr 01/19/18 10:54 01/19/18 12: 42 Dextrose IVPB 14.5 mls/hr Q20H LEN Administration 8 MG/HR Morphine Sulfate 4 mg 01/18/18 12:59 01/18/18 13:20 Morphine Sulfate IVPUSH 4 mg Q4H PRN Administration PAIN LEVEL 4 - 6 Mupirocin 1 applic 01/17/18 22:00 01/19/18 11:12 Bactroban Ointment (For Decolonization) - NS 01/22/18 21:59 1 applic BID LEN Administration Ondansetron HCl 4 mg 01/18/18 13:05 01/18/18 13:25 Zofran Injection IVPUSH 4 mg Q4H PRN Administration NAUSEA AND/OR VOMITING ASSESSMENT/PLAN: 32M presents with syncope and melena in setting of steroid/NSAID use, found to have acute UGIB. # GI Bleed from Duodenal Ulcer - s/p injection/cautery by Dr. Perdomo on 01/18/18 - GI (Dr. Vila) recs appreciated: maintain clear liquids for one more day - Morphine prn for pain control - Zofran prn for nausea # Acute Blood Loss Anemia - s/p 2U PRBCs this hospitalization - hgb stable - transfuse prn # FEN/ppx - Fluids: po - Electrolytes: wnl, continue to monitor - Nutrition: clear liquids - DVT ppx with yolanda SCDs - GI ppx with Protonix # dispo - stable for transfer to floors Visit type - Emergency Visit Emergency Visit: Yes ED Registration Date: 01/17/18 Care time: The patient presented to the Emergency Department on the above date and was hospitalized for further evaluation of their emergent condition. - New Patient This patient is new to me today: Yes Date on this admission: 01/19/18 - Critical Care Critical Care patient: Yes Total Critical Care Time (in minutes): 45 Critical Care Statement: The care of this patient involved high complexity decision making to prevent further life threatening deterioration of the patient 's condition and/or to evaluate & treat vital organ system(s) failure or risk of failure.
[2018-01-19] MEDS ORDERED: SODIUM CHLORIDE 1,000 ML IV SCH (16:30)
[2018-01-19] MEDS ORDERED: morphine SULFATE 4 MG/ML VIAL IVPUSH PRN (19:17)
[2018-01-19] MEDS ORDERED: ONDANSETRON 4 MG/2 ML VIAL IVPUSH PRN (19:17)
[2018-01-19 20:35] LABS: HEMATOCRIT 25.6 % (35.4-49); HEMOGLOBIN 8.7 GM/dL (11.7-16.9); MCH 29.8 pg (25.7-33.7); MCHC 33.9 g/dl (32.0-35.9); MEAN CELL VOLUME 87.7 fl (80-96); MEAN PLT VOLUME 8.7 fl (7.5-11.1); PLATELET COUNT 229 K/MM3 (134-434); RBC 2.91 M/mm3 (4.00-5.60); RDW 14.4 % (11.9-15.9); WHITE BLOOD COUNT 13.8 K/mm3 (4.0-10.0)
[2018-01-20] MEDS: MAG HYDROX/AL HYDROX/SIMETH 30 ML UNIT-DOSE CUP PO SCH ×3 (00:24→15:29)
[2018-01-20] MEDS ORDERED: HEMOQUE CONTROL SOLUTION ONE (01:41)
[2018-01-20] MEDS ORDERED: HEMOQUE TEST 1 EACH EACH ONE (05:50)
[2018-01-20 06:22] LABS: HEMATOCRIT 24.9 % (35.4-49); HEMOGLOBIN 8.5 GM/dL (11.7-16.9); MCHC 34.1 g/dl (32.0-35.9); MEAN CELL VOLUME 87.9 fl (80-96); MEAN PLT VOLUME 9.1 fl (7.5-11.1); PLATELET COUNT 237 K/MM3 (134-434); RBC 2.83 M/mm3 (4.00-5.60); RDW 14.5 % (11.9-15.9); WHITE BLOOD COUNT 12.6 K/mm3 (4.0-10.0)
[2018-01-20] MEDS ORDERED: PANTOPRAZOLE SODIUM 160 MG in DEXTROSE 5%-WATER - 250 ML IVPB SCH (06:54)
[2018-01-20 06:55] LABS: ANION GAP 7 (8-16); BLOOD UREA NITROGEN 12 mg/dL (7-18); CHLORIDE 107 mmol/L (98-107); CO2 28 mmol/L (21-32); CREATININE 0.9 mg/dL (0.7-1.3); GLUCOSE,RANDOM 97 mg/dL (74-106); POTASSIUM 3.7 mmol/L (3.5-5.1); SODIUM 142 mmol/L (136-145)
--- NOTE | 2018-01-20 07:38 | PN ---
Physical Exam: SUBJECTIVE: Patient seen and examined OBJECTIVE: Vital Signs Period Temp Pulse Resp BP Sys/Ramos Pulse Ox Last 24 Hr 98.3 F-99.8 F 75-134 14-20 101-139/58-98 98 GENERAL: The patient is awake, alert, and fully oriented, in no acute distress. HEAD: Normal with no signs of trauma. EYES: PERRL, extraocular movements intact, sclera anicteric, conjunctiva clear. No ptosis. ENT: Ears normal, nares patent, oropharynx clear without exudates, moist mucous membranes. NECK: Trachea midline, full range of motion, supple. LUNGS: Breath sounds equal, clear to auscultation bilaterally, no wheezes, no crackles, no accessory muscle use. HEART: Regular rate and rhythm, S1, S2 without murmur, rub or gallop. ABDOMEN: Soft, nontender, nondistended, normoactive bowel sounds, no guarding, no rebound, no hepatosplenomegaly, no masses. EXTREMITIES: 2+ pulses, warm, well-perfused, no edema. NEUROLOGICAL: Cranial nerves II through XII grossly intact. Normal speech, gait not observed. PSYCH: Normal mood, normal affect. SKIN: Warm, dry, normal turgor, no rashes or lesions noted Laboratory Results - last 24 hr 01/19/18 01/19/18 01/20/18 13:34 20:00 05:57 WBC 13.9 H 13.8 H 12.6 H RBC 3.02 L 2.91 L 2.83 L Hgb 9.0 L 8.7 L 8.5 L Hct 26.3 L 25.6 L 24.9 L MCV 87.2 87.7 87.9 MCH 29.9 29.8 30.0 MCHC 34.3 33.9 34.1 RDW 14.2 14.4 14.5 Plt Count 220 229 237 MPV 8.4 8.7 9.1 Active Medications Generic Name Dose Route Start Last Admin Trade Name Freq PRN Reason Stop Dose Admin Al Hydroxide/Mg Hydroxide 30 ml 01/20/18 00:00 01/20/18 05:20 Mylanta Oral Suspension - PO Not Given Q6HPO LEN Fluticasone Propionate 1 spray 01/20/18 10:00 Flonase - NS DAILY LEN Sodium Chloride 1,000 mls @ 75 mls/hr 01/19/18 16:30 01/19/18 17:07 Normal Saline - IV 75 mls/hr ASDIR LEN Administration Pantoprazole Sodium 160 mg/ 290 mls @ 14.5 mls/hr 01/20/18 06:54 01/20/18 06: 23 Dextrose IVPB 14.5 mls/hr Q20H LEN Administration 8 MG/HR Morphine Sulfate 4 mg 01/19/18 19:17 Morphine Sulfate IVPUSH Q4H PRN PAIN LEVEL 4 - 6 Ondansetron HCl 4 mg 01/19/18 19:17 Zofran Injection IVPUSH Q4H PRN NAUSEA AND/OR VOMITING ASSESSMENT/PLAN:
[2018-01-20 08:08] LABS: SERUM IRON SATURATION 24 % (15-55); TOTAL IRON BINDING CAPACITY 226 ug/dL (250-450); UIBC 172 ug/dL (111-343)
--- NOTE | 2018-01-20 09:22 | MSN ---
Progress Note (short form) - Note Progress Note: SUBJECTIVE: Patient seen and examined this morning. No overnight events. Patient out of bed without weakness or lightheadedness. Tachycardia to 130's noted on director of cardiac cath lab with exertion; at rest heart rate in 80's. No bowel movements. Tolerated soft diet dinner without nausea/vomiting. Patient is anxious to move out of ICU and to start heading home. He feels much improved. He denies lightheadedness, SOB, chest pain, abdominal pain, nausea/vomiting, and fevers/chills. OBJECTIVE: Vital Signs Period Temp Pulse Resp BP Sys/Ramos Pulse Ox Last 24 Hr 98.3 F-99.8 F 75-140 14-22 117-159/66-83 98 GENERAL: Pale man lying in bed in no acute distress, awake, alert, and orientated. HEAD: Normal without evidence of trauma EYES: Conjunctival pallor, sclera anicteric, extra-occular muscles intact MOUTH: No lesions or plaques, uvula midline NECK: No lymphadenopathy, no thyromegaly, trachea midline CARDIOVASCULAR: No JVD, heart regular at 80 bpms, +S1/S2, no murmurs, rubs, or gallops LUNGS: Clear to auscultation b/l, no wheezes or crackles ABDOMEN: Normoactive bowel sounds, soft, non-tender, non-distended, no organomegaly, no rebound or guarding EXTREMITIES: 2 + PT pulses b/l, no edema, no gross joint deformities NEURO: CN II-XII grossly intact, normal speech PSYCH: Cooperative CBC, BMP 01/20/18 05:57 01/20/18 05:57 Current Medications Generic Name Dose Route Start Last Admin Trade Name Freq PRN Reason Stop Dose Admin Al Hydroxide/Mg Hydroxide 30 ml 01/20/18 00:00 01/20/18 05:20 Mylanta Oral Suspension - PO Not Given Q6HPO LEN Fluticasone Propionate 1 spray 01/20/18 10:00 Flonase - NS DAILY LEN Pantoprazole Sodium 160 mg/ 290 mls @ 14.5 mls/hr 01/20/18 06:54 01/20/18 06: 23 Dextrose IVPB 14.5 mls/hr Q20H LEN Administration 8 MG/HR Morphine Sulfate 4 mg 01/19/18 19:17 Morphine Sulfate IVPUSH Q4H PRN PAIN LEVEL 4 - 6 Ondansetron HCl 4 mg 01/19/18 19:17 Zofran Injection IVPUSH Q4H PRN NAUSEA AND/OR VOMITING IMAGING: CXR: No acute pathology EKG: Sinus tachycardia. No T-wave inversions or ST-segment changes. Normal QTc. ASSESSMENT/PLAN: 32 yr old male with hx of recently resolved panniculitis treated with prednisone and ibuprofen presented to ED after a syncopal episode and 3 melanic bowel movements and was found to have a bleeding duodenal bulb ulcer. #Acute upper GI hemorrhage-s/p EGD with cautery of duodenal ulcer; s/p 2 units of PRBC -Ulcer likely exacerbated by recent course of prednisone and ibuprofen-avoid NSAIDS/steroids in the future -H. pylori biopsy pending -Leukocytosis trending down (14.3<12.6) -d/c protonix IV ggt today; transition to protonix PO 40 mg BID - H and H drifting down (9.0>8.7>8.5), but most likely due to hemo-dilution; repeat CBC this afternoon -Monitor clinically for signs of re-bleeding; consider need for repeat EGD -Maintain peripheral IV access; transfuse if Hb<7 -Advance from soft foods as tolerated #Syncope-likely due to acute hemorrhagic anemia and hypovolemia -S/p 2 units PRBC, continue to monitor H and H; hemoglobin drifting down (9.0 >8.7>8.5) likely due to hemo-dilution; repeat CBC this afternoon -Unlikely cardiac etiology, sinus tachycardia on monitor, maintain cardiac monitoring #Panniculitis-resolved -Avoid NSAIDS/aspirin in the future #F/E/N -Soft diet -d/c IV NS as patient is tolerating po intake #DVT prophylaxis -SCDs #Dispo-plan for discharge if repeat hemoglobin stable with close out-patient follow-up with PCP and GI
--- NOTE | 2018-01-20 09:26 | PN ---
Physical Exam: SUBJECTIVE: Patient seen and examined in the ICU. Pt tolerating soft diet. Asymptomatic on standing today. Pt denies headache, chest pain, sob, abdominal pain, nausea, vomiting, fever, chills. No events overnight. OBJECTIVE: Vital Signs Period Temp Pulse Resp BP Sys/Ramos Pulse Ox Last 24 Hr 98.3 F-99.8 F 75-140 14-22 117-159/66-83 98 GENERAL: The patient is awake, alert, and fully oriented, in no acute distress. LUNGS: Breath sounds equal, clear to auscultation bilaterally, no wheezes, no crackles, no accessory muscle use. HEART: Regular rate and rhythm, S1, S2 without murmur, rub or gallop. ABDOMEN: Soft, nontender, nondistended, normoactive bowel sounds, no guarding. EXTREMITIES: Warm, well-perfused, no edema. NEUROLOGICAL: Cranial nerves II through XII grossly intact. Normal speech. PSYCH: Normal mood, normal affect. Laboratory Results - last 24 hr 01/19/18 01/19/18 01/19/18 05:40 13:34 20:00 WBC 13.9 H 13.8 H RBC 3.02 L 2.91 L Hgb 9.0 L 8.7 L Hct 26.3 L 25.6 L MCV 87.2 87.7 MCH 29.9 29.8 MCHC 34.3 33.9 RDW 14.2 14.4 Plt Count 220 229 MPV 8.4 8.7 Sodium Potassium Chloride Carbon Dioxide Anion Gap BUN Creatinine Random Glucose Calcium Iron 54 TIBC 226 L Iron Saturation 24 01/20/18 01/20/18 05:57 05:57 WBC 12.6 H RBC 2.83 L Hgb 8.5 L Hct 24.9 L MCV 87.9 MCH 30.0 MCHC 34.1 RDW 14.5 Plt Count 237 MPV 9.1 Sodium 142 Potassium 3.7 Chloride 107 Carbon Dioxide 28 Anion Gap 7 L BUN 12 Creatinine 0.9 Random Glucose 97 Calcium 8.0 L Iron TIBC Iron Saturation Active Medications Generic Name Dose Route Start Last Admin Trade Name Freq PRN Reason Stop Dose Admin Al Hydroxide/Mg Hydroxide 30 ml 01/20/18 00:00 01/20/18 05:20 Mylanta Oral Suspension - PO Not Given Q6HPO LEN Fluticasone Propionate 1 spray 01/20/18 10:00 Flonase - NS DAILY LEN Pantoprazole Sodium 160 mg/ 290 mls @ 14.5 mls/hr 01/20/18 06:54 01/20/18 06: 23 Dextrose IVPB 14.5 mls/hr Q20H LEN Administration 8 MG/HR Morphine Sulfate 4 mg 01/19/18 19:17 Morphine Sulfate IVPUSH Q4H PRN PAIN LEVEL 4 - 6 Ondansetron HCl 4 mg 01/19/18 19:17 Zofran Injection IVPUSH Q4H PRN NAUSEA AND/OR VOMITING ASSESSMENT/PLAN: 32M presents with syncope and melena in setting of steroid/NSAID use, found to have acute UGIB. # GI Bleed from Duodenal Ulcer - s/p injection/cautery by Dr. Perdomo on 01/18/18 - improved - leukocytosis improving - Morphine prn for pain control - not taken - Zofran prn for nausea - not taken # Acute Blood Loss Anemia - s/p 2U PRBCs this hospitalization - hgb stable - transfuse prn - iron studies wnl # FEN/ppx - Fluids: po - Electrolytes: wnl, continue to monitor - Nutrition: soft diet - DVT ppx with yolanda SCDs - GI ppx with Protonix # dispo - stable for transfer to floors Visit type - Emergency Visit Emergency Visit: Yes ED Registration Date: 01/17/18 Care time: The patient presented to the Emergency Department on the above date and was hospitalized for further evaluation of their emergent condition. - New Patient This patient is new to me today: No - Critical Care Critical Care patient: Yes Total Critical Care Time (in minutes): 36 Critical Care Statement: The care of this patient involved high complexity decision making to prevent further life threatening deterioration of the patient 's condition and/or to evaluate & treat vital organ system(s) failure or risk of failure.
[2018-01-20] MEDS ORDERED: PANTOPRAZOLE 40 MG TABLET (FP) PO SCH (10:00)
[2018-01-20] MEDS ORDERED: FLUTICASONE PROP 0.05% 16 GM NASAL SPRAY NS SCH (10:00)
[2018-01-20] MEDS ORDERED: PT OWN MED DRAWER 7, Y5N ONE (10:21)
--- NOTE | 2018-01-20 12:43 | PN ---
Teaching Attending Note Name of Resident: Cynthia Brandt ATTENDING PHYSICIAN STATEMENT I saw and evaluated the patient. I reviewed the resident's note and discussed the case with the resident. I agree with the resident's findings and plan as documented. SUBJECTIVE: Patient seen and examined in the ICU. Stable overnight. No bowel movements overnight. OBJECTIVE: Intake & Output 01/17/18 01/18/18 01/19/18 01/20/18 23:59 23:59 23:59 23:59 Intake Total 200 3464.5 2605 1554 Output Total 1200 1710 800 400 Balance -1000 1754.5 1805 1154 Weight 271 lb 4.8 oz 271 lb 4.8 oz 270 lb 265 lb 1.6 oz Last Vital Signs Temp Pulse Resp BP Pulse Ox 98.4 F 89 22 143/79 98 01/20/18 10:00 01/20/18 10:00 01/20/18 10:00 01/20/18 10:00 01/20/18 09:00 Active Medications Al Hydroxide/Mg Hydroxide (Mylanta Oral Suspension -) 30 ml PO Q6HPO [facility] Last Admin: 01/20/18 05:20 Dose: Not Given Fluticasone Propionate (Flonase -) 1 spray NS DAILY [facility] Last Admin: 01/20/18 10:22 Dose: 1 spray Ondansetron HCl (Zofran Injection) 4 mg IVPUSH Q4H PRN PRN Reason: NAUSEA AND/OR VOMITING Pantoprazole Sodium (Protonix -) 40 mg PO BID [facility] Last Admin: 01/20/18 10:22 Dose: 40 mg Gen: NAD at rest Heart: RRR Lung: decreased breath sounds at the bases Abd: soft, nontender Ext: no edema Laboratory Results - last 24 hr 01/19/18 01/19/18 01/19/18 05:40 13:34 20:00 WBC 13.9 H 13.8 H RBC 3.02 L 2.91 L Hgb 9.0 L 8.7 L Hct 26.3 L 25.6 L MCV 87.2 87.7 MCH 29.9 29.8 MCHC 34.3 33.9 RDW 14.2 14.4 Plt Count 220 229 MPV 8.4 8.7 Sodium Potassium Chloride Carbon Dioxide Anion Gap BUN Creatinine Random Glucose Calcium Iron 54 TIBC 226 L Iron Saturation 24 01/20/18 01/20/18 05:57 05:57 WBC 12.6 H RBC 2.83 L Hgb 8.5 L Hct 24.9 L MCV 87.9 MCH 30.0 MCHC 34.1 RDW 14.5 Plt Count 237 MPV 9.1 Sodium 142 Potassium 3.7 Chloride 107 Carbon Dioxide 28 Anion Gap 7 L BUN 12 Creatinine 0.9 Random Glucose 97 Calcium 8.0 L Iron TIBC Iron Saturation ASSESSMENT AND PLAN: GI Bleed from Duodenal Ulcer s/p injection/cautery Acute Blood Loss Anemia - monitor H/H - transfuse as needed - PO per GI - mechanical DVT prophylaxis - D/C planning Dr Poole
[2018-01-20 13:49] VITALS: TEMP 98.6
[2018-01-20 14:24] LABS: HEMATOCRIT 27.8 % (35.4-49); HEMOGLOBIN 9.2 GM/dL (11.7-16.9); MCH 29.7 pg (25.7-33.7); MCHC 33.3 g/dl (32.0-35.9); MEAN CELL VOLUME 89.2 fl (80-96); MEAN PLT VOLUME 8.9 fl (7.5-11.1); PLATELET COUNT 279 K/MM3 (134-434); RBC 3.12 M/mm3 (4.00-5.60); RDW 14.8 % (11.9-15.9); WHITE BLOOD COUNT 13.2 K/mm3 (4.0-10.0)
--- NOTE | 2018-01-20 16:19 | PN ---
Progress Note, Physician History of Present Illness: No events. Appears comfortable. Reports no BMs. Tolerating current diet. - Current Medication List Current Medications: Active Medications Al Hydroxide/Mg Hydroxide (Mylanta Oral Suspension -) 30 ml PO Q6HPO [facility] Last Admin: 01/20/18 15:29 Dose: 30 ml Fluticasone Propionate (Flonase -) 1 spray NS DAILY [facility] Last Admin: 01/20/18 10:22 Dose: 1 spray Ondansetron HCl (Zofran Injection) 4 mg IVPUSH Q4H PRN PRN Reason: NAUSEA AND/OR VOMITING Pantoprazole Sodium (Protonix -) 40 mg PO BID [facility] Last Admin: 01/20/18 10:22 Dose: 40 mg - Objective Vital Signs: Vital Signs Temperature 98.6 F 01/20/18 13:48 Pulse Rate 86 01/20/18 13:48 Respiratory Rate 22 01/20/18 13:48 Blood Pressure 156/85 01/20/18 13:48 O2 Sat by Pulse Oximetry (%) 98 01/20/18 09:00 Constitutional: Yes: Well Nourished, No Distress, Calm Gastrointestinal: Yes: Normal Bowel Sounds, Soft. No: Melena, Rectal Bleeding, Tenderness, Vomiting Labs: CBC, BMP 01/20/18 14:06 01/20/18 05:57 INR, PTT INR 1.25 (0.82-1.09) H 01/19/18 05:40 Laboratory Last Values WBC 13.2 K/mm3 (4.0-10.0) H 01/20/18 14:06 RBC 3.12 M/mm3 (4.00-5.60) L 01/20/18 14:06 Hgb 9.2 GM/dL (11.7-16.9) L 01/20/18 14:06 Hct 27.8 % (35.4-49) L 01/20/18 14:06 MCV 89.2 fl (80-96) 01/20/18 14:06 MCH 29.7 pg (25.7-33.7) 01/20/18 14:06 MCHC 33.3 g/dl (32.0-35.9) 01/20/18 14:06 RDW 14.8 % (11.9-15.9) 01/20/18 14:06 Plt Count 279 K/MM3 (134-434) 01/20/18 14:06 MPV 8.9 fl (7.5-11.1) 01/20/18 14:06 Neutrophils % 64.8 % (42.8-82.8) D 01/19/18 05:40 Lymphocytes % 27.5 % (8-40) D 01/19/18 05:40 Monocytes % 5.3 % (3.8-10.2) 01/19/18 05:40 Eosinophils % 2.0 % (0-4.5) D 01/19/18 05:40 Basophils % 0.4 % (0-2.0) 01/19/18 05:40 PT with INR 14.10 SEC (9.7-13.0) H 01/19/18 05:40 INR 1.25 (0.82-1.09) H 01/19/18 05:40 PTT (Actin FS) 23.7 SECONDS (26.9-34.4) L 01/19/18 05:40 D-Dimer < 200 ng/ml (0-500) 01/17/18 16:25 Sodium 142 mmol/L (136-145) 01/20/18 05:57 Potassium 3.7 mmol/L (3.5-5.1) 01/20/18 05:57 Chloride 107 mmol/L (98-107) 01/20/18 05:57 Carbon Dioxide 28 mmol/L (21-32) 01/20/18 05:57 Anion Gap 7 (8-16) L 01/20/18 05:57 BUN 12 mg/dL (7-18) 01/20/18 05:57 Creatinine 0.9 mg/dL (0.7-1.3) 01/20/18 05:57 Creat Clearance w eGFR > 60 (>60) 01/19/18 05:40 POC Glucometer 124.65974 UNITS (80-120) 01/17/18 16:18 Random Glucose 97 mg/dL (74-106) 01/20/18 05:57 Calcium 8.0 mg/dL (8.5-10.1) L 01/20/18 05:57 Phosphorus 3.0 mg/dL (2.5-4.9) D 01/19/18 05:40 Magnesium 2.0 mg/dL (1.8-2.4) 01/19/18 05:40 Iron 54 ug/dL (38-169) 01/19/18 05:40 TIBC 226 ug/dL (250-450) L 01/19/18 05:40 Iron Saturation 24 % (15-55) 01/19/18 05:40 Ferritin 190.484 ng/ml (16.4-293.9) 01/19/18 05:40 Total Bilirubin 0.9 mg/dL (0.2-1.0) D 01/19/18 05:40 AST 15 U/L (15-37) D 01/19/18 05:40 ALT 27 U/L (12-78) 01/19/18 05:40 Alkaline Phosphatase 54 U/L (45-117) 01/19/18 05:40 Creatine Kinase Cancelled 01/17/18 16:25 Troponin I Cancelled 01/17/18 16:25 C-Reactive Protein 1.4 MG/DL (0.00-0.3) H 01/19/18 05:40 Total Protein 5.4 g/dl (6.4-8.2) L 01/19/18 05:40 Albumin 3.1 g/dl (3.4-5.0) L 01/19/18 05:40 Total Amylase 67 U/L (25-115) 01/19/18 05:40 Lipase 128 U/L (73-393) 01/19/18 05:40 TSH Cancelled 01/17/18 16:25 Stool Occult Blood Positive (NEGATIVE) 01/17/18 16:03 Blood Type O POSITIVE 01/17/18 23:31 Antibody Screen Negative 01/17/18 17:33 Crossmatch See Detail 01/17/18 17:33 Problem List - Problems (1) Duodenal ulcer Code(s): K26.9 - DUODENAL ULCER, UNSP ACUTE OR CHRONIC, W/O HEMOR OR PERF (2) Bleeding Code(s): R58 - HEMORRHAGE, NOT ELSEWHERE CLASSIFIED (3) Gastrointestinal bleeding Code(s): K92.2 - GASTROINTESTINAL HEMORRHAGE, UNSPECIFIED Assessment/Plan Advance diet. CBC in a.m.
--- NOTE | 2018-01-20 16:39 | DS ---
Physical Exam: SUBJECTIVE: Patient seen and examined. Offers no complaints. Tolerated regular diet. Ambulated with no lightheadedness. OBJECTIVE: Vital Signs Period Temp Pulse Resp BP Sys/Ramos Pulse Ox Last 24 Hr 98.4 F-99.8 F 75-140 14-22 117-159/66-85 98-98 PHYSICAL EXAM GENERAL: lying in bed, aaox3, nad HEENT: sclera anicteric, conjunctiva clear, mmm LUNGS: CTAB HEART: tachycardia, regular rhythm, normal S1/S2, no m/r/g ABDOMEN: soft, obese, ntnd, +positive BS EXTREMITIES: 2+ DP pulses, wwp, no edema LABS CBC, BMP 01/20/18 14:06 01/20/18 05:57 Hepatic Panel Total Bilirubin 0.9 mg/dL (0.2-1.0) D 01/19/18 05:40 AST 15 U/L (15-37) D 01/19/18 05:40 ALT 27 U/L (12-78) 01/19/18 05:40 Alkaline Phosphatase 54 U/L (45-117) 01/19/18 05:40 Albumin 3.1 g/dl (3.4-5.0) L 01/19/18 05:40 HOSPITAL COURSE: Date of Admission:01/17/18 Date of Discharge: 01/20/18 Pre-Hospital Admission Course: 32yo man with PMH of obesity and recent treatment for panniculitis with prednisone and NSAID who presents with syncope and melena. Pt had recent bilateral inner thigh rash who was seen in the ED on 12/12, sent home on keflex/ bactrim, seen with persistent symptoms, sent out on clindamycin/ibuprofen and referred to Dermatology (Dr. Camara). Biopsy confirmed panniculitis and he was placed on 14 days of prednisone and ibuprofen 400 mg daily with resolution of his thigh symptoms. The patient was at [facility] when last night patient went to bathroom, felt lightheaded and had 1x dark stool. After standing up, patient felt dizzy, walked to bed, and passed out with face on bed. Patients reports may have passed out for several minutes, woke up with further lightheadedness, and came to ED. In the ED, patient was dizzy, tachycardic, with dark stool in rectum. Subsequent Hospital Course: Patient was admitted for suspected UGIB and was transferred to ICU for further management. Patient was placed on PPI gtt and GI was consulted. EGD on 01/18/18 found duodenal bulb ulcer with visible vessel that was injected with epinephrine and cauterized. He was transfused with 2U PRBCs. H&H was stable following EGD. By discharge he was tolerating regular diet and ambulating without issue. No complaints of dizziness or lighheadedness. No further episodes of melena. Consults: Pulm/Critical Care: Dr. Poole, Dr. Baugh GI: Dr. Perdomo, Dr. Vila Imaging: CXR 01/17/18: Since 07/18/2018 there is no change of an adverse nature no sign of acute process. There are clear lungs, normal mediastinum and sharp edges. The bones and soft tissue are intact. Impression: NO acute pathology. No comparison studies. Minutes to complete discharge: 40 Discharge Summary Reason For Visit: GI BLEED Current Active Problems Bleeding (Acute) Duodenal ulcer (Acute) Gastrointestinal bleeding (Acute) Condition: Improved - Instructions Diet, Activity, Other Instructions: You were admitted to the hospital, because you were bleeding from a duodenal ulcer. You had an EGD on 01/[address] Perdomo that found a bleeding ulcer, which was injected with epinephrine and cauterized to stop the bleeding. You were also transfused with 2 units of blood. Continue eating a soft foods, and advance to regular consistency foods as tolerated. Medications: You were started on medication called Protonix for your ulcer. Take Protonix 40mg twice per day (12 hours apart). Avoid medications that contain NSAIDs, including Advil, Motrin, Alleve, Ibuprofen. Follow-ups: Make an appointment to see Dr. New at the [facility] on Friday , 01/23 to have your blood counts checked. Make an appointment to see Dr. Vila (GI doctor) in 1-2 weeks. Discuss with him when you should stop taking Protonix. Return to the Emergency room if you feel dizzy, lightheaded, have bloody stools , can't tolerate any foods or any new or concerning symptoms. Referrals: Garth New MD [Staff Physician] - 01/23/18 Lemuel Vila MD [Staff Physician] - Disposition: HOME - Home Medications Comprehensive Discharge Medication List: Ambulatory Orders Albuterol Sulfate Inhaler - [Ventolin HFA Inhaler -] 1 - 2 inh PO Q4H #1 inhaler 10/28/17 Pantoprazole Sodium [Protonix -] 40 mg PO BID #60 tablet.ec 01/20/18 This patient is new to me today: No Emergency Visit: No Critical Care patient: Yes Total Critical Care Time (in minutes): 36 Critical Care Statement: The care of this patient involved high complexity decision making to prevent further life threatening deterioration of the patient 's condition and/or to evaluate & treat vital organ system(s) failure or risk of failure. - Discharge Referral Referred to [facility] No
[2018-01-20 17:29] VITALS: BP 138/93; PULSE 84
--- NOTE | 2018-01-20 18:30 | PN ---
Teaching Attending Note Name of Resident: Kathryn Flores ATTENDING PHYSICIAN STATEMENT I saw and evaluated the patient. I reviewed the resident's note and discussed the case with the resident. I agree with the resident's findings and plan as documented. SUBJECTIVE: Patient has no complaints. Tolerating diet. Ambulating without dizziness. OBJECTIVE: Vital Signs Period Temp Pulse Resp BP Sys/Ramos Pulse Ox Last 24 Hr 98.4 F-99.3 F 75-140 16-22 117-159/66-93 98-98 HEART: S1S2, RRR LUNGS: Clear ABDOMEN: Obese, soft, non-tender, non-distended, normal BS EXTREMITIES: No edema Laboratory Results - last 24 hr 01/19/18 01/19/18 01/20/18 05:40 20:00 05:57 WBC 13.8 H 12.6 H RBC 2.91 L 2.83 L Hgb 8.7 L 8.5 L Hct 25.6 L 24.9 L MCV 87.7 87.9 MCH 29.8 30.0 MCHC 33.9 34.1 RDW 14.4 14.5 Plt Count 229 237 MPV 8.7 9.1 Sodium Potassium Chloride Carbon Dioxide Anion Gap BUN Creatinine Random Glucose Calcium Iron 54 TIBC 226 L Iron Saturation 24 01/20/18 01/20/18 05:57 14:06 WBC 13.2 H RBC 3.12 L Hgb 9.2 L Hct 27.8 L MCV 89.2 MCH 29.7 MCHC 33.3 RDW 14.8 Plt Count 279 MPV 8.9 Sodium 142 Potassium 3.7 Chloride 107 Carbon Dioxide 28 Anion Gap 7 L BUN 12 Creatinine 0.9 Random Glucose 97 Calcium 8.0 L Iron TIBC Iron Saturation ASSESSMENT AND PLAN: This is a 32 year old man with a history of recent panniculitis treated with Prednisone and ibuprofen who presented to ED because of melena and syncope. 1. Syncope secondary to acute blood loss anemia from bleeding duodenal ulcer - s/p EGD 01/18 showing duodenal bulb ulcer with visible vessel which was injected with epinephrine and cauterized - Transfused 2 units PRBCs - Hemoglobin stable - No evidence of further bleeding - Tolerating diet - Continue Protonix 2x daily - Avoid NSAIDs 2. Recent panniculitis - Resolved 3. Morbid obesity with BMI 41.5
== END 2018-01-20 18:16 | disposition home or self-care (01) | DRG 378 ==
LOC: JER 15:44 → JERBED 18:45 → JICU 20:25
PROVIDERS: ADMIT Hospitalist; ATTEND Internal Medicine
PROC: 30233N1 Transfusion of Nonautologous Red Blood Cells into Peripheral Vein, Percutaneous Approach (ICD-10-PCS; 2018-01-17)
PROC: 3E0G8GC Introduction of Other Therapeutic Substance into Upper GI, Via Natural or Artificial Opening Endoscopic (ICD-10-PCS; 2018-01-18)
PROC: 0W3P8ZZ Control Bleeding in Gastrointestinal Tract, Via Natural or Artificial Opening Endoscopic (ICD-10-PCS; principal; 2018-01-18 10:00)
DX: K26.0 Acute duodenal ulcer with hemorrhage (principal); Z68.41 Body mass index [BMI] 40.0-44.9, adult; D62 Acute posthemorrhagic anemia; R55 Syncope and collapse; R11.2 Nausea with vomiting, unspecified; R00.0 Tachycardia, unspecified; E66.9 Obesity, unspecified; E86.1 Hypovolemia; M79.3 Panniculitis, unspecified; Z79.1 Long term (current) use of non-steroidal anti-inflammatories (NSAID)
CPT/HCPCS: 36415; 36430; 71045-TC-FY; 80048; 80053; 82150; 82272; 82550; 82728; 82962; 83540; 83550; 83690; 83735; 84100; 84443; 84484; 85025; 85027; 85379; 85610; 85730; 86140; 86850; 86900; 86901; 86922; 93005; 93010; 99283-25; J7030; P9038; P9058

== ENCOUNTER 2018-08-28 23:14 | Emergency (ER) | payer BC ==
--- NOTE | 2018-08-29 01:32 | PDOC ---
Attending Attestation - Resident Resident Name: Nilesh Zhao - ED Attending Attestation I have performed the following: I have examined & evaluated the patient, The case was reviewed & discussed with the resident, I agree w/resident's findings & plan - HPI HPI: 08/29/18 04:40 Pt comes with headache that has been ongoing since 1 week. Pt states that he has no remission of the headache. It is constant at a 3-4 out of 10, where 10 is the worst pain. Pt statest that the pain sometimes gets worse. He has HTN in his family; he has never been diagnosed with it. He has a BP of 157 systolic today. He is morbidly obese. He has been eating salty foods at work. - Physicial Exam PE: 08/29/18 04:43 Agree with resident exam . HEENT normal; exam normal; pt is neurologically intact - Medical Decision Making 08/29/18 03:39 Patient Name: RUBEN MOORE THIS IS A PRELIMINARY REPORT FROM [facility] DATE OF SERVICE: 2018-08-29 03:12:44 IMAGES: 146 EXAM: CT HEAD CT WITHOUT CONTRAST HISTORY: Headache COMPARISON: None. FINDINGS: Brain parenchyma is normal in attenuation with no mass or hematoma. There is no midline shift. Oblivar and white matter differentiation is normal. Ventricles are normal. Sulci and extra-axial CSF spaces are normal. Intracranial vascular structures are normal in attenuation. There is no calvarial fracture. Paranasal sinuses are normally aerated. IMPRESSION: Normal head THIS DOCUMENT HAS BEEN ELECTRONICALLY SIGNED 08/29/18 04:43 Pt's BP plummeted in the ER with a nitro. He has no chest paon. He was hydrated and treated with tylenol and reglan for the headache. Pt feels better. Head CT is normal. 08/29/18 04:44 Pt is refusing the spinal tap. He understands that he may have an aneurysm or sentinel bleed and he is unwilling to get an LP. He understands that a small percentage apprix 8-10% of bleeds may not be seen on CT head. He will follow with medicine for HTN control/check. We discussed the improtance of diet.
[2018-08-29 01:35] VITALS: TEMP 98.4; BMI 41.5
[2018-08-29] MEDS ORDERED: SODIUM CHLORIDE 0.9% 1000 ML INFUS.BAG IV ONE (01:48)
[2018-08-29] MEDS ORDERED: METOCLOPRAMIDE HCL INJECTION 10 MG/2 ML VIAL IVPB ONE (01:48)
[2018-08-29] MEDS ORDERED: ACETAMINOPHEN 1000 MG/100 ML VIAL (NON FORMULARY) IVPB ONE (01:48)
[2018-08-29] MEDS ORDERED: amLODIPine BESYLATE 5 MG TABLET (FP) PO ONE (01:48)
[2018-08-29] MEDS ORDERED: NITROGLYCERIN SUBLINGUAL 1/150 0.4 MG TAB SL ONE (02:00)
[2018-08-29] MEDS ORDERED: amLODIPine BESYLATE 5 MG TABLET (FP) ONE (02:05)
[2018-08-29] MEDS ORDERED: ACETAMINOPHEN INJECTION 100 ML IVPB ONE (02:06)
[2018-08-29] MEDS ORDERED: METOCLOPRAMIDE HCL INJECTION 10 MG/2 ML VIAL ONE (02:07)
[2018-08-29 02:43] LABS: BASO % 0.4 % (0-2.0); EOS % 2.3 % (0-4.5); HEMOGLOBIN 14.6 GM/dL (11.7-16.9); LYMPH % 22.4 % (8-40); MCH 27.8 pg (25.7-33.7); MEAN CELL VOLUME 81.9 fl (80-96); MEAN PLT VOLUME 9.4 fl (7.5-11.1); MONO % 6.8 % (3.8-10.2); NEUT % 68.1 % (42.8-82.8); PLATELET COUNT 388 K/MM3 (134-434); RBC 5.25 M/mm3 (4.00-5.60); WHITE BLOOD COUNT 15.2 K/mm3 (4.0-10.0)
[2018-08-29 02:56] LABS: INR 1.21 (0.83-1.09); PROTHROMBIN TIME (PATIENT) 14.3 SEC (9.7-13.0)
--- NOTE | 2018-08-29 03:03 | PDOC ---
History of Present Illness - General Chief Complaint: Headache Stated Complaint: HEADACHE Time Seen by Provider: 08/29/18 01:31 History Source: Patient Exam Limitations: No Limitations - History of Present Illness Initial Comments: 08/29/18 02:58 The patient is a 33M with no PMH who presents to the ER with complaints of a headache. The patient states that he's had 7 days of "lingering" headache which initially started in his b/l temples and is now located in his L posterior head which he describes as sharp, nonradiating, without exacerbating and alleviating factors. He admits to mild lightheadedness but denies fever, chills, changes in vision, numbness, tingling, and weakness, nausea, and vomiting. He states that he told an EMT friend about his headaches and they took his BP and it was elevated. He has no hx of HTN but admits to a strong family hx. Past History - Past Medical History Allergies/Adverse Reactions: Allergies Allergy/AdvReac Type Severity Reaction Status Date / Time No Known Allergies Allergy Verified 08/29/18 01:49 Home Medications: Ambulatory Orders NK [No Known Home Medication] 08/29/18 Anemia: No Asthma: No Cancer: No Cardiac Disorders: No CVA: No COPD: No CHF: No Dementia: No Diabetes: No GI Disorders: No Disorders: No HTN: No Hypercholesterolemia: No Liver Disease: No Seizures: No Thyroid Disease: No - Surgical History Abdominal Surgery: No Appendectomy: No Cardiac Surgery: No Cholecystectomy: No Lung Surgery: No Neurologic Surgery: No Orthopedic Surgery: No - Suicide/Smoking/Psychosocial Hx Smoking Status: No Smoking History: Never smoked Have you smoked in the past 12 months: No Number of Cigarettes Smoked Daily: 0 Hx Alcohol Use: No Drug/Substance Use Hx: No Substance Use Type: None Review of Systems - Review of Systems Able to Perform ROS?: Yes Comments:: 08/29/18 03:00 GENERAL/CONSTITUTIONAL: No fever or chills. No weakness. HEAD, EYES, EARS, NOSE AND THROAT: No change in vision. No ear pain or discharge. No sore throat. CARDIOVASCULAR: Positive for lightheadedness. No chest pain or palpitations. RESPIRATORY: No cough, wheezing, shortness of breath, or hemoptysis. GASTROINTESTINAL: No nausea, vomiting, diarrhea, constipation, or abdominal pain. GENITOURINARY: No dysuria, frequency, hematuria, or change in urination. MUSCULOSKELETAL: No joint or muscle swelling or pain. No neck or back pain. SKIN: No rash or lesions. NEUROLOGIC: Positive for headache. No numbness, tingling, focal weakness, loss of consciousness, or change in strength/sensation. Is the patient limited Samoan proficient: No *Physical Exam - Vital Signs Last Vital Signs Temp Pulse Resp BP Pulse Ox 98.4 F 84 19 165/102 H 100 08/28/18 23:30 08/28/18 23:30 08/28/18 23:30 08/28/18 23:30 08/28/18 23:30 - Physical Exam Comments: 08/29/18 03:01 GENERAL: Well developed, well nourished. Awake and alert. No acute distress. HEENT: Normocephalic, atraumatic. Hearing grossly normal. Moist mucous membranes. PERRLA, EOMI. No conjunctival pallor. NECK: Supple. Full ROM. No JVD. CARDIOVASCULAR: Regular rate and rhythm. No murmurs, rubs, or gallops. PULMONARY: No evidence of respiratory distress. Lungs clear to auscultation bilaterally. No wheezing, rales or rhonchi. ABDOMINAL: Soft. Non-tender. Non-distended. No rebound or guarding. GENITOURINARY: No CVA tenderness bilaterally. MUSCULOSKELETAL: Normal range of motion at all joints. No bony deformities or tenderness. EXTREMITIES: No cyanosis. No clubbing. No edema. No calf tenderness or swelling. SKIN: Warm and dry. Normal capillary refill. No rashes. No jaundice. NEUROLOGICAL: Alert, awake, appropriate. Cranial nerves 2-12 grossly intact. Normal speech. Gait is normal without ataxia. PSYCHIATRIC: Cooperative. Good eye contact. Appropriate mood and affect. Moderate Sedation - Procedure Monitoring Vital Signs: Procedure Monitoring Vital Signs Temperature 98.4 F 08/28/18 23:30 Pulse Rate 84 08/28/18 23:30 Respiratory Rate 19 08/28/18 23:30 Blood Pressure 165/102 H 08/28/18 23:30 O2 Sat by Pulse Oximetry (%) 100 08/28/18 23:30 ED Treatment Course - LABORATORY CBC & Chemistry Diagram: 08/29/18 02:22 08/29/18 02:22 - ADDITIONAL ORDERS Additional order review: Laboratory Results 08/29/18 02:22 PT with INR 14.30 H INR 1.21 H 08/29/18 02:22 RBC 5.25 MCV 81.9 MCHC 34.0 RDW 15.0 MPV 9.4 Neutrophils % 68.1 Lymphocytes % 22.4 Monocytes % 6.8 Eosinophils % 2.3 Basophils % 0.4 - Medications Given in the ED: ED Medications Discontinued Medications Generic Name Dose Route Start Last Admin Trade Name Loulou PRN Reason Stop Dose Admin Acetaminophen 1,000 mg 08/29/18 01:48 08/29/18 02:43 Ofirmev Injection - IVPB 08/29/18 01:49 1,000 mg ONCE ONE Administration Metoclopramide HCl 10 mg 08/29/18 01:48 08/29/18 02:43 Reglan Injection - IVPB 08/29/18 01:49 10 mg ONCE ONE Administration Sodium Chloride 1,000 ml 08/29/18 01:48 08/29/18 02:42 Normal Saline - IV 08/29/18 01:49 1,000 ml ONCE ONE Administration Medical Decision Making - Medical Decision Making 08/29/18 03:01 The patient is a 33M with no PMH who presents to the ER with complaints of a headache and is found to have an elevated BP, 180's/100's while I was present in the room with the patient. Will order CBC, CMP to evaluate kidney function, CXR, CTH, and give amlodipine 5 to slowly bring down BP. Attending cancelled amlodipine and gave pt 2 nitro. Pt's BP 120's/70's and pt states he feels extremely lightheaded. Pt getting fluids, tylenol, and reglan for headache. Continuing fluids. 08/29/18 03:52 CTH negative. 08/29/18 04:37 Pt states he feels much better. Will d/c with PCP and neuro f/u. *DC/Admit/Observation/Transfer Diagnosis at time of Disposition: Headache Qualifiers: Headache type: unspecified Headache chronicity pattern: acute headache Intractability: not intractable Qualified Code(s): R51 - Headache - Discharge Dispostion Disposition: HOME Condition at time of disposition: Stable Decision to Admit order: No - Referrals Referrals: [facility] [place] [Provider Group] Sb Garcia MD [Staff Physician] - - Patient Instructions Printed Discharge Instructions: DI for Headache Additional Instructions: Please follow up with your primary care physician in 2-3 days. Please return to the ER if you have any signs or symptoms of chest pain, shortness of breath, uncontrollable fever, chills, nausea, vomiting, numbness, tingling, or weakness in any part of your body, changes in vision, or slurred speech. Please return to the ER if symptoms persist, worsen, or new symptoms arise. - Post Discharge Activity
[2018-08-29 03:10] LABS: ALBUMIN 4.4 g/dl (3.4-5.0); ALK PHOS 97 U/L (45-117); ANION GAP 11 MMOL/L (8-16); BILIRUBIN,TOTAL 0.5 mg/dL (0.2-1); BLOOD UREA NITROGEN 15 mg/dL (7-18); CALCIUM 9.3 mg/dL (8.5-10.1); CHLORIDE 102 mmol/L (98-107); CO2 25 mmol/L (21-32); GLUCOSE,RANDOM 88 mg/dL (74-106); POTASSIUM 4.4 mmol/L (3.5-5.1); SGOT/AST 30 U/L (15-37); SGPT/ALT 66 U/L (13-61); SODIUM 137 mmol/L (136-145); TOT PROT 8.1 g/dl (6.4-8.2)
[2018-08-29 04:32] VITALS: BP 116/71; PULSE 85
--- NOTE | 2018-08-29 21:18 | EKG ---
Test Reason : Blood Pressure : / mmHG Vent. Rate : 057 BPM Atrial Rate : 057 BPM P-R Int : 136 ms QRS Dur : 092 ms QT Int : 432 ms P-R-T Axes : 037 051 019 degrees QTc Int : 420 ms SINUS BRADYCARDIA NONSPECIFIC T WAVE ABNORMALITY ABNORMAL ECG WHEN COMPARED WITH ECG OF 17-JAN-2018 15:59, VENT. RATE HAS DECREASED BY [address] ELEVATION NOW PRESENT IN ANTERIOR LEADS NONSPECIFIC T WAVE ABNORMALITY NOW EVIDENT IN INFERIOR LEADS T WAVE INVERSION NOW EVIDENT IN LATERAL LEADS Confirmed by JANELLE WATSON, ISMA ([id number]) on 08/29/2018 9:18:35 PM Referred By: Confirmed By:ISMA LUIS MD
== END 2018-08-29 04:46 | disposition home or self-care (01) ==
LOC: JER 23:14
PROC: 3E033NZ Introduction of Analgesics, Hypnotics, Sedatives into Peripheral Vein, Percutaneous Approach (ICD-10-PCS; principal; 2018-08-28)
PROC: 3E033GC Introduction of Other Therapeutic Substance into Peripheral Vein, Percutaneous Approach (ICD-10-PCS; 2018-08-28)
DX: R51 Headache (principal); R03.0 Elevated blood-pressure reading, without diagnosis of hypertension
CPT/HCPCS: 36415; 70450-TC; 80053; 85025; 85610; 93005; 93010; 99282-25; J0131; J7030

== ENCOUNTER 2018-09-03 11:09 | Emergency (ER) | payer BC ==
[2018-09-03 11:26] VITALS: PULSE 84; TEMP 98.6; BMI 44.2
--- NOTE | 2018-09-03 12:00 | PDOC ---
History of Present Illness - General History Source: Patient Exam Limitations: No Limitations - History of Present Illness Initial Comments: 09/03/18 14:17 Patient is a 33 year old male with no significant past medical history who presents to the ED with complaints of increased blood pressure. Patient reports going to [facility] this afternoon, and was notified that he blood pressure was dangerously elevated to 178/130, prompting Dr. Johnston to send him to the ED for further evaluation. He reports coming into the ED 6 days ago for similar symptoms, stating he was given nitroglycerin pills for his elevated B/P then discharge. Patient's blood pressure recorded at 162/98 upon arrival to ED. Denies chest pain, sob. Denies nausea, vomiting. Denies fevers, chills. Denies diarrhea, constipation. Denies dysuria, hematuria. Denies trauma to affected area. Denies contact with sick individuals, out of state travelling. Denies any other symptoms. Allergies: None Social history: No smoking. No alcohol. No illicit drugs. Surgical history: None PMD: None <Jonas Rice - Last Filed: 09/03/18 14:17> <Camelia Hutson - Last Filed: 09/03/18 15:21> - General Chief Complaint: Blood Pressure Problem Stated Complaint: BLOOD PRESSURE PROBLEM (PCP SENT) Time Seen by Provider: 09/03/18 11:59 Past History <Jonas Rice - Last Filed: 09/03/18 14:17> - Past Medical History Anemia: No Asthma: No Cancer: No Cardiac Disorders: No CVA: No COPD: No CHF: No Dementia: No Diabetes: No GI Disorders: No Disorders: No HTN: No Hypercholesterolemia: No Liver Disease: No Seizures: No Thyroid Disease: No - Surgical History Abdominal Surgery: No Appendectomy: No Cardiac Surgery: No Cholecystectomy: No Lung Surgery: No Neurologic Surgery: No Orthopedic Surgery: No - Immunization History Immunization Up to Date: Yes - Suicide/Smoking/Psychosocial Hx Smoking Status: No Smoking History: Never smoked Have you smoked in the past 12 months: No Number of Cigarettes Smoked Daily: 0 Hx Alcohol Use: No Drug/Substance Use Hx: No Substance Use Type: None <Camelia Hutson - Last Filed: 09/03/18 15:21> - Past Medical History Allergies/Adverse Reactions: Allergies Allergy/AdvReac Type Severity Reaction Status Date / Time No Known Allergies Allergy Verified 09/03/18 11:22 Home Medications: Ambulatory Orders Amlodipine Besylate [Norvasc -] 5 mg PO DAILY #30 tablet 09/03/18 Review of Systems - Review of Systems Able to Perform ROS?: Yes Comments:: 09/03/18 14:17 GENERAL/CONSTITUTIONAL: No fever or chills. No weakness. HEAD, EYES, EARS, NOSE AND THROAT: No change in vision. No ear pain or discharge. No sore throat. GASTROINTESTINAL: No nausea, vomiting, diarrhea or constipation. GENITOURINARY: No dysuria, frequency, or change in urination. CARDIOVASCULAR: No chest pain or shortness of breath. RESPIRATORY: No cough, wheezing, or hemoptysis. MUSCULOSKELETAL: No joint or muscle swelling or pain. No neck or back pain. SKIN: No rash NEUROLOGIC: No headache, vertigo, loss of consciousness, or change in strength/ sensation. ENDOCRINE: No increased thirst. No abnormal weight change. HEMATOLOGIC/LYMPHATIC: No anemia, easy bleeding, or history of blood clots. ALLERGIC/IMMUNOLOGIC: No hives or skin allergy. <Jonas Rice - Last Filed: 09/03/18 14:17> *Physical Exam - Vital Signs Last Vital Signs Temp Pulse Resp BP Pulse Ox 98.6 F 84 18 151/98 100 09/03/18 11:22 09/03/18 11:22 09/03/18 11:22 09/03/18 13:03 09/03/18 11:22 - Physical Exam Comments: 09/03/18 14:17 GENERAL: +Obese. Awake, alert, and fully oriented, in no acute distress HEAD: No signs of trauma EYES: PERRLA, EOMI, sclera anicteric, conjunctiva clear ENT: Auricles normal inspection, hearing grossly normal, nares patent, oropharynx clear without exudates. Moist mucosa NECK: Normal ROM, supple, no lymphadenopathy, JVD, or masses LUNGS: Breath sounds equal, clear to auscultation bilaterally. No wheezes, and no crackles HEART: Regular rate and rhythm, normal S1 and S2, no murmurs, rubs or gallops ABDOMEN: Soft, nontender, normoactive bowel sounds. No guarding, no rebound. No masses EXTREMITIES: Normal range of motion, no edema. No clubbing or cyanosis. No cords, erythema, or tenderness NEUROLOGICAL: Cranial nerves II through XII grossly intact. Normal speech, normal gait SKIN: Warm, Dry, normal turgor, no rashes or lesions noted. <Jonas Rice - Last Filed: 09/03/18 14:17> - Vital Signs Last Vital Signs Temp Pulse Resp BP Pulse Ox 98.6 F 84 18 161/98 100 09/03/18 11:22 09/03/18 11:22 09/03/18 11:22 09/03/18 11:22 09/03/18 11:22 <Camelia Hutson - Last Filed: 09/03/18 15:21> Moderate Sedation - Procedure Monitoring Vital Signs: Procedure Monitoring Vital Signs Temperature 98.6 F 09/03/18 11:22 Pulse Rate 84 09/03/18 11:22 Respiratory Rate 18 09/03/18 11:22 Blood Pressure 151/98 09/03/18 13:03 O2 Sat by Pulse Oximetry (%) 100 09/03/18 11:22 <Jonas Rice - Last Filed: 09/03/18 14:17> - Procedure Monitoring Vital Signs: Procedure Monitoring Vital Signs Temperature 98.6 F 09/03/18 11:22 Pulse Rate 84 09/03/18 11:22 Respiratory Rate 18 09/03/18 11:22 Blood Pressure 161/98 09/03/18 11:22 O2 Sat by Pulse Oximetry (%) 100 09/03/18 11:22 <Camelia Htuson - Last Filed: 09/03/18 15:21> ED Treatment Course - LABORATORY CBC & Chemistry Diagram: 09/03/18 12:13 09/03/18 12:13 - ADDITIONAL ORDERS Additional order review: Laboratory Results 09/03/18 09/03/18 09/03/18 12:13 12:13 12:13 PT with INR 13.90 H INR 1.18 H PTT (Actin FS) 30.1 Sodium 138 Potassium 4.6 Chloride 106 Carbon Dioxide 26 Anion Gap 7 L BUN 17 Creatinine 1.1 Creat Clearance w eGFR > 60 Random Glucose 99 Calcium 8.6 Total Bilirubin 0.4 AST 26 ALT 50 Alkaline Phosphatase 82 Creatine Kinase 122 Troponin I < 0.02 Total Protein 7.1 Albumin 4.2 TSH 1.04 D 09/03/18 12:13 RBC 5.06 MCV 82.5 MCHC 32.0 RDW 14.9 MPV 9.1 Neutrophils % 64.3 Lymphocytes % 27.1 D Monocytes % 6.9 Eosinophils % 1.4 Basophils % 0.3 - Medications Given in the ED: ED Medications Discontinued Medications Generic Name Dose Route Start Last Admin Trade Name Loulou PRN Reason Stop Dose Admin Amlodipine Besylate 5 mg 09/03/18 13:33 09/03/18 13:36 Norvasc - PO 09/03/18 13:34 5 mg ONCE ONE Administration <Jonas Rice - Last Filed: 09/03/18 14:17> - LABORATORY CBC & Chemistry Diagram: 09/03/18 12:13 09/03/18 12:13 <Camelia Hutson - Last Filed: 09/03/18 15:21> Medical Decision Making - Medical Decision Making Case d/w Dr. Johnston via phone. Recommended that we start him on Norvasc, I will give 5 mg now and will give it daily. She will f/u with him in office tomorrow to recheck. <Camelia Hutson - Last Filed: 09/03/18 15:21> *DC/Admit/Observation/Transfer - Attestations Scribe Attestion: 09/03/18 14:17 Documentation prepared by Jonas Rice, acting as medical support assistant for Camelia Hutson MD. <Jonas Rice - Last Filed: 09/03/18 14:17> - Discharge Dispostion Decision to Admit order: No <Camelia Hutson - Last Filed: 09/03/18 15:21> Diagnosis at time of Disposition: Hypertension Qualifiers: Hypertension type: unspecified Qualified Code(s): I10 - Essential (primary) hypertension - Discharge Dispostion Disposition: HOME Condition at time of disposition: Stable - Prescriptions Prescriptions: Amlodipine Besylate [Norvasc -] 5 mg PO DAILY #30 tablet - Patient Instructions Printed Discharge Instructions: DI for High Blood Pressure
[2018-09-03 12:51] LABS: BASO % 0.3 % (0-2.0); EOS % 1.4 % (0-4.5); HEMATOCRIT 41.8 % (35.4-49); HEMOGLOBIN 13.3 GM/dL (11.7-16.9); LYMPH % 27.1 % (8-40); MCH 26.4 pg (25.7-33.7); MEAN CELL VOLUME 82.5 fl (80-96); MEAN PLT VOLUME 9.1 fl (7.5-11.1); MONO % 6.9 % (3.8-10.2); NEUT % 64.3 % (42.8-82.8); PLATELET COUNT 292 K/MM3 (134-434); RBC 5.06 M/mm3 (4.00-5.60); RDW 14.9 % (11.9-15.9); WHITE BLOOD COUNT 10.8 K/mm3 (4.0-10.0)
[2018-09-03 13:03] LABS: INR 1.18 (0.83-1.09); PROTHROMBIN TIME (PATIENT) 13.9 SEC (9.7-13.0)
[2018-09-03 13:04] VITALS: BP 151/98
[2018-09-03 13:07] LABS: ACTIVATED PTT 30.1 SECONDS (25.2-36.5)
[2018-09-03 13:22] LABS: ALBUMIN 4.2 g/dl (3.4-5.0); ALK PHOS 82 U/L (45-117); ANION GAP 7 MMOL/L (8-16); BILIRUBIN,TOTAL 0.4 mg/dL (0.2-1); BLOOD UREA NITROGEN 17 mg/dL (7-18); CALCIUM 8.6 mg/dL (8.5-10.1); CHLORIDE 106 mmol/L (98-107); CO2 26 mmol/L (21-32); CREATININE 1.1 mg/dL (0.55-1.3); GLUCOSE,RANDOM 99 mg/dL (74-106); POTASSIUM 4.6 mmol/L (3.5-5.1); SGOT/AST 26 U/L (15-37); SGPT/ALT 50 U/L (13-61); SODIUM 138 mmol/L (136-145); TOT PROT 7.1 g/dl (6.4-8.2)
[2018-09-03] MEDS ORDERED: amLODIPine BESYLATE 5 MG TABLET (FP) PO ONE (13:33)
[2018-09-03] MEDS ORDERED: amLODIPine BESYLATE 5 MG TABLET (FP) ONE (13:34)
--- NOTE | 2018-09-04 10:22 | EKG ---
Test Reason : Blood Pressure : / mmHG Vent. Rate : 065 BPM Atrial Rate : 065 BPM P-R Int : 164 ms QRS Dur : 094 ms QT Int : 400 ms P-R-T Axes : 045 033 034 degrees QTc Int : 416 ms NORMAL SINUS RHYTHM WITH SINUS ARRHYTHMIA NONSPECIFIC ST AND T WAVE ABNORMALITY ABNORMAL ECG WHEN COMPARED WITH ECG OF 29-AUG-2018 02:44, NONSPECIFIC T WAVE ABNORMALITY HAS REPLACED INVERTED T WAVES IN LATERAL LEADS Confirmed by JANELLE WATSON, ISMA ([id number]) on 09/04/2018 10:22:29 AM Referred By: Confirmed By:ISMA LIUS MD
== END 2018-09-03 13:43 | disposition home or self-care (01) ==
LOC: JER 11:09
DX: I10 Essential (primary) hypertension (principal)
CPT/HCPCS: 36415; 80053; 82550; 84443; 84484; 85025; 85610; 85730; 93005; 93010; 99283-25

== ENCOUNTER 2018-09-11 00:13 | Emergency (ER) | payer BC ==
--- NOTE | 2018-09-11 00:32 | PDOC ---
History of Present Illness - General Chief Complaint: Chest Pain Stated Complaint: SHORTNESS AND DISCOMFORT CHEST Time Seen by Provider: 09/11/18 00:30 - History of Present Illness Initial Comments: 33yo M with PMH of hypertension (recently diagnosed) and obesity presenting with chest pain x 2-3 days. He describes the pain as dull, occurring for about three seconds every 2-3 hours. He does not notice a correlation with different foods. The pain is substernal, nonradiating, nonpalpable, and nonpleuritic. Grandmother had an ID in her 50s. Patient reports that he feels like he cannot get a deep breath x 1 week and has had frequent yawning. He reports paying more attention to his breathing. These ailments have been keeping him up at night. Denies history of gastric reflux. Endorses ten pound weight gain since December. No history of blood clots, asthma, smoking, or COPD. No hemoptysis, recent travel, recent surgery, or hormone use. Denies fever, chills, or abdominal pain. Past History - Past Medical History Allergies/Adverse Reactions: Allergies Allergy/AdvReac Type Severity Reaction Status Date / Time No Known Allergies Allergy Verified 09/11/18 00:28 Home Medications: Ambulatory Orders Amlodipine Besylate [Norvasc -] 5 mg PO DAILY #30 tablet 09/03/18 Anemia: No Asthma: No Cancer: No Cardiac Disorders: No CVA: No COPD: No CHF: No Dementia: No Diabetes: No GI Disorders: No Disorders: No HTN: Yes Hypercholesterolemia: No Liver Disease: No Seizures: No Thyroid Disease: No - Surgical History Abdominal Surgery: No Appendectomy: No Cardiac Surgery: No Cholecystectomy: No GI Surgery: Yes (Duodenal ulcer repaired) Lung Surgery: No Neurologic Surgery: No Orthopedic Surgery: No - Immunization History Immunization Up to Date: Yes - Suicide/Smoking/Psychosocial Hx Smoking Status: No Smoking History: Never smoked Have you smoked in the past 12 months: No Number of Cigarettes Smoked Daily: 0 Information on smoking cessation initiated: No Hx Alcohol Use: No Drug/Substance Use Hx: No Substance Use Type: None Review of Systems - Review of Systems Comments:: Constitutional: no fever, no chills HEENT: no throat pain, no dysphagia Cardiovascular: +chest pain, no palpitations Respiratory: no cough, +shortness of breath Gastrointestinal: no abdominal pain, no nausea, no vomiting Genitourinary: no dysuria, no frequency Musculoskeletal: no myalgia, no arthralgia Skin: no rash, no itching Neurologic: no headache, no dizziness *Physical Exam - Vital Signs Last Vital Signs Temp Pulse Resp BP Pulse Ox 97.6 F 89 18 152/84 99 09/11/18 00:29 1218 00:29 12 00:29 09/11/18 00:29 09/11/18 00:29 - Physical Exam Comments: General: Awake, alert, and fully oriented, in no acute distress Head: No signs of trauma Eyes: EOMI, sclera anicteric ENT: Moist mucus membranes Neck: Normal ROM, supple Lungs: Lungs clear, Normal breath sounds Cardio: Regular rhythm, S1 and S2 present Abdomen: Soft, nontender. No guarding, no rebound, no masses Extremities: Normal range of motion, Distal pulses present SKIN: Warm, Dry, normal turgor Neurologic: Cranial nerves II through XII grossly intact. Normal speech Moderate Sedation - Procedure Monitoring Vital Signs: Procedure Monitoring Vital Signs Temperature 97.6 F 09/11/18 00:29 Pulse Rate 89 09/11/18 00:29 Respiratory Rate 18 09/11/18 00:29 Blood Pressure 152/84 09/11/18 00:29 O2 Sat by Pulse Oximetry (%) 99 09/11/18 00:29 ED Treatment Course - LABORATORY CBC & Chemistry Diagram: 09/11/18 01:11 09/11/18 01:11 Medical Decision Making - Medical Decision Making 33yo M with PMH of hypertension (recently diagnosed) and obesity presenting with chest pain x 2-3 days. -DDX includes but not limited to GERD, MSK, ACS, PE, PNA, Pickwickian syndrome -Labs: Tpn negative, no leukocytosis or anemia, electrolytes unremarkable -EKG: rate 72, QTc 420, sinus rhythm, isolated twi in lead III -CXR: no acute pathology (my impression) -HEART Score: 1 (for hypertension) -Patient discharged. *DC/Admit/Observation/Transfer Diagnosis at time of Disposition: Chest pain - Discharge Dispostion Disposition: HOME Condition at time of disposition: Stable - Referrals Referrals: Garth New MD [Staff Physician] - - Patient Instructions Printed Discharge Instructions: DI for Atypical Chest Pain Additional Instructions: You came into the ED for chest pain. We performed blood work and an Xray which was normal. Follow-up with a primary care doctor this week to discuss this ED visit and to further evaluate your chest pain. Your workup is not complete until you do so. Call for emergency medicine services or go to the emergency room right away if you have symptoms of a heart attack, including: Chest pain, which may feel like a crushing weight A sense of fullness, squeezing, or pressure in the chest Rapid, irregular heartbeat Pain, tingling or numbness in the left shoulder and arm, the neck or jaw, or the right arm Sweating Nausea or vomiting Lightheadedness, weakness, or fainting Shortness of breath If you think you have an emergency, call for medical help right away. - Post Discharge Activity
--- NOTE | 2018-09-11 00:42 | PDOC ---
Attending Attestation - Resident Resident Name: Camelia Hunt - ED Attending Attestation I have performed the following: I have examined & evaluated the patient, The case was reviewed & discussed with the resident, I agree w/resident's findings & plan, Exceptions are as noted - HPI HPI: 33 yo history HTN and obesity presents with chest pressure for the past 2-3 days. Pain is dull, lasts a few seconds at a time, occurs a few times per day. He also states he has been yawning frequently, feels like he needs more oxygen. However, he does not get winded (above his baseline) when walking around, up stairs. No pleuritic pain, no immobilization, no leg swelling. - Physicial Exam PE: GENERAL: Awake, alert, and fully oriented, in no acute distress. Obese. HEAD: No signs of trauma EYES: PERRLA, EOMI, sclera anicteric, conjunctiva clear ENT: Auricles normal inspection, hearing grossly normal, nares patent, oropharynx clear without exudates. Moist mucosa NECK: Normal ROM, supple, no lymphadenopathy, JVD, or masses LUNGS: Breath sounds equal, clear to auscultation bilaterally. No wheezes, and no crackles HEART: Regular rate and rhythm, normal S1 and S2, no murmurs, rubs or gallops ABDOMEN: Soft, nontender, normoactive bowel sounds. No guarding, no rebound. No masses EXTREMITIES: Normal range of motion, no edema. No clubbing or cyanosis. No cords, erythema, or tenderness NEUROLOGICAL: Cranial nerves II through XII grossly intact. Normal speech, normal gait SKIN: Warm, Dry, normal turgor, no rashes or lesions noted. - Medical Decision Making Symptoms are atypical for ACS, and they have been going on for more than 1 day. Trop is negative. Low risk of PE by clinical eval. Stable for DC home.
[2018-09-11 01:14] VITALS: BP 152/84; PULSE 89; TEMP 97.6; BMI 42.3
[2018-09-11 01:28] LABS: BASO % 0.4 % (0-2.0); EOS % 2.1 % (0-4.5); HEMATOCRIT 41.5 % (35.4-49); MCH 27.7 pg (25.7-33.7); MCHC 33.7 g/dl (32.0-35.9); MEAN CELL VOLUME 82.3 fl (80-96); MEAN PLT VOLUME 9.6 fl (7.5-11.1); MONO % 7.2 % (3.8-10.2); NEUT % 62.3 % (42.8-82.8); PLATELET COUNT 348 K/MM3 (134-434); RBC 5.04 M/mm3 (4.00-5.60); RDW 15.2 % (11.9-15.9); WHITE BLOOD COUNT 10.9 K/mm3 (4.0-10.0)
[2018-09-11 02:02] LABS: ALBUMIN 4.1 g/dl (3.4-5.0); ALK PHOS 82 U/L (45-117); ANION GAP 8 MMOL/L (8-16); BILIRUBIN,TOTAL 0.4 mg/dL (0.2-1); BLOOD UREA NITROGEN 13 mg/dL (7-18); CALCIUM 9.1 mg/dL (8.5-10.1); CHLORIDE 104 mmol/L (98-107); CO2 27 mmol/L (21-32); GLUCOSE,RANDOM 101 mg/dL (74-106); POTASSIUM 4.2 mmol/L (3.5-5.1); SGOT/AST 32 U/L (15-37); SGPT/ALT 59 U/L (13-61); SODIUM 138 mmol/L (136-145); TOT PROT 7.5 g/dl (6.4-8.2)
--- NOTE | 2018-09-11 11:30 | EKG ---
Test Reason : Blood Pressure : / mmHG Vent. Rate : 072 BPM Atrial Rate : 072 BPM P-R Int : 152 ms QRS Dur : 098 ms QT Int : 384 ms P-R-T Axes : 063 060 030 degrees QTc Int : 420 ms SINUS RHYTHM WITH MARKED SINUS ARRHYTHMIA OTHERWISE NORMAL ECG WHEN COMPARED WITH ECG OF 03-SEP-2018 12:25, NO SIGNIFICANT CHANGE WAS FOUND Confirmed by ISMA LUIS MD ([id number]) on 09/11/2018 11:30:11 AM Referred By: Confirmed By:ISMA LUIS MD
== END 2018-09-11 02:47 | disposition home or self-care (01) ==
LOC: JER 00:13
DX: R07.89 Other chest pain (principal); I10 Essential (primary) hypertension; E66.9 Obesity, unspecified; Z68.41 Body mass index [BMI] 40.0-44.9, adult
CPT/HCPCS: 36415; 71046-TC-FY; 80053; 84484; 85025; 93005; 93010; 99283-25

== ENCOUNTER 2019-07-06 12:17 | Emergency (ER) | payer BC ==
[2019-07-06 12:39] VITALS: TEMP 98.5; BMI 40.7
--- NOTE | 2019-07-06 15:24 | PDOC ---
History of Present Illness - General Chief Complaint: Chest Pain Stated Complaint: CHEST PAIN Time Seen by Provider: 07/06/19 15:20 History Source: Patient Exam Limitations: Clinical Condition - History of Present Illness Initial Comments: 07/06/19 15:53 Patient with history of hypertension not on medication presented with complaint of midsternal chest pain which he describes as pressure in the chest upon wake this morning. Patient reports pain is localized to midsternal. Denies dizziness, nausea, vomiting, numbness or tingling sensation. Patient report family history of cardiomyopathy. Denies fever, chills, headache, blurry vision or change in vision. Patient reports taking aspirin prior to arrival. Is this a multiple visit Asthma Patient?: No Past History - Past Medical History Allergies/Adverse Reactions: Allergies Allergy/AdvReac Type Severity Reaction Status Date / Time No Known Allergies Allergy Verified 07/06/19 12:39 Home Medications: Ambulatory Orders Amlodipine Besylate [Norvasc -] 5 mg PO DAILY #30 tablet 09/03/18 Amlodipine Besylate [Norvasc -] 10 mg PO DAILY #30 tablet 07/06/19 Anemia: No Asthma: No Cancer: No Cardiac Disorders: No CVA: No COPD: No CHF: No Dementia: No Diabetes: No GI Disorders: No Disorders: No HTN: Yes Hypercholesterolemia: No Liver Disease: No Seizures: No Thyroid Disease: No - Surgical History Abdominal Surgery: No Appendectomy: No Cardiac Surgery: No Cholecystectomy: No GI Surgery: Yes (Duodenal ulcer repaired) Lung Surgery: No Neurologic Surgery: No Orthopedic Surgery: No - Immunization History Immunization Up to Date: Yes - Psycho Social/Smoking Cessation Hx Smoking Status: No Smoking History: Never smoked Have you smoked in the past 12 months: No Number of Cigarettes Smoked Daily: 0 Hx Alcohol Use: No Drug/Substance Use Hx: No Substance Use Type: None Review of Systems - Review of Systems Able to Perform ROS?: Yes Is the patient limited Albanian proficient: No Constitutional: No: Chills, Fever, Malaise HEENTM: No: Symptoms Reported, See HPI, Eye Pain, Blurred Vision, Tearing, Recent change in vision, Double Vision, Cataracts, Ear Pain, Ocular Prothesis, Ear Discharge, Nose Pain, Nose Congestion, Tinnitus, Nose Bleeding, Hearing Loss , Throat Pain, Throat Swelling, Mouth Pain, Dental Problems, Difficulty Swallowing, Mouth Swelling, Other Respiratory: No: Symptoms reported, See HPI, Cough, Orthopnea, Shortness of Breath, SOB with Exertion, SOB at Rest, Stridor, Wheezing, Productive cough, Hemoptysis, Other Cardiac (ROS): Yes: Symptoms Reported, See HPI, Chest Pain. No: Edema, Irregular Heart Rate, Lightheadedness, Palpitations, Syncope, Chest Tightness, Other ABD/GI: No: Symptoms Reported, Nausea, Vomiting Musculoskeletal: No: Symptoms Reported Integumentary: No: Symptoms Reported Neurological: No: Symptoms reported, Headache, Numbness, Paresthesia, Tingling, Dizziness All Other Systems: Reviewed and Negative *Physical Exam - Vital Signs Last Vital Signs Temp Pulse Resp BP Pulse Ox 98.5 F 62 18 201/104 H 100 07/06/19 12:36 07/06/19 12:36 07/06/19 12:36 07/06/19 12:36 07/06/19 12:36 - Physical Exam Comments: 07/06/19 15:57 GENERAL: Well developed, well nourished. Awake and alert. No acute distress. HEENT: Normocephalic, atraumatic. PERRLA, EOMI. No conjunctival pallor. Sclera are non-icteric. Moist mucous membranes. Oropharynx is clear. NECK: Supple. Full ROM. CARDIOVASCULAR: Regular rate and rhythm. No murmurs, rubs, or gallops. Distal pulses are 2+ and symmetric. PULMONARY: No evidence of respiratory distress. Lungs clear to auscultation bilaterally. No wheezing, rales or rhonchi. ABDOMINAL: Soft. Non-tender. Non-distended. No rebound or guarding. No organomegaly. Normoactive bowel sounds. MUSCULOSKELETAL Normal range of motion at all joints. EXTREMITIES: No cyanosis. No clubbing. No edema. No calf tenderness. SKIN: Warm and dry. Normal capillary refill. No rashes. No jaundice. NEUROLOGICAL: Alert, awake, appropriate. Gait is normal without ataxia. PSYCHIATRIC: Cooperative. Good eye contact. Appropriate mood General Appearance: Yes: Nourished, Appropriately Dressed. No: Apparent Distress ED Treatment Course - LABORATORY CBC & Chemistry Diagram: 07/06/19 15:30 07/06/19 15:30 Medical Decision Making - Medical Decision Making 07/06/19 15:55 atient with history of hypertension not on medication presented with complaint of midsternal chest pain which he describes as pressure in the chest upon wake this morning. Patient reports pain is localized to midsternal. Denies dizziness, nausea, vomiting, numbness or tingling sensation. Patient report family history of cardiomyopathy. Denies fever, chills, headache, blurry vision or change in vision. Patient reports taking aspirin prior to arrival. Clinical exam significant for elevated blood pressure of 200/100 with repeat blood pressure of 188/120. Normal cardiac exam normal lung exam. EKG shows normal sinus rhythm. Symptoms likely of hypertensive urgency. CBC, CMP, cardiac profile lab ordered. Chest x-ray ordered to rule out acute chest pathology. Patient home Norvasc 10 mg p.o. ordered for elevated blood pressure as patient has not been taking medication for many months. Patient was previously on 5 mg Norvasc daily and reported he was DC'd a few months ago by his PCP. 07/06/19 17:12 CBC and cardiac profile of normal. Checks x-ray shows no acute pathology. Repeat blood pressure after Norvasc 10 mg is 169/101. Patient stable for discharge on Norvasc 10 mg daily with cardiology and PCP follow-up. Plan discussed with patient patient agrees with plan. Patient clinically stable for discharge Discharge - Discharge Information Problems reviewed: Yes Clinical Impression/Diagnosis: Chest pain Qualifiers: Chest pain type: unspecified Qualified Code(s): R07.9 - Chest pain, unspecified Hypertension Qualifiers: Hypertension type: essential hypertension Qualified Code(s): I10 - Essential ( primary) hypertension Condition: Stable Disposition: HOME - Admission No - Additional Discharge Information Prescriptions: Amlodipine Besylate [Norvasc -] 10 mg PO DAILY #30 tablet - Follow up/Referral Referrals: Jose Ibarra MD [Staff Physician] - Andrade Mistry MD [Staff Physician] - - Patient Discharge Instructions Patient Printed Discharge Instructions: Treatments for High Blood Pressure: More Than Just Taking a Pill, Recommendations to Help Prevent High Blood Pressure, DI for Chest Pain Additional Instructions: Your chest x-ray was normal. His CBC lab and cardiac lab was normal as well. Your symptoms likely caused by elevated blood pressure. Take prescribed blood pressure medication as prescribed. Follow-up with referred internal medicine Dr. Ibarra for blood pressure control, call office for appointment. Follow-up with referred cardiology Dr. Buchanan with for chest pain. Come back to emergency room if worsening chest pain, dizziness, weakness or severe headaches - Post Discharge Activity
--- NOTE | 2019-07-06 15:46 | EKG ---
Test Reason : Blood Pressure : / mmHG Vent. Rate : 066 BPM Atrial Rate : 066 BPM P-R Int : 146 ms QRS Dur : 086 ms QT Int : 428 ms P-R-T Axes : 039 034 054 degrees QTc Int : 448 ms NORMAL SINUS RHYTHM NORMAL ECG WHEN COMPARED WITH ECG OF 11-SEP-2018 00:32, NO SIGNIFICANT CHANGE WAS FOUND Confirmed by Basim Salinas ([id number]) on 07/06/2019 3:46:41 PM Referred By: Confirmed By:Basim Salinas
[2019-07-06] MEDS ORDERED: amLODIPine BESYLATE 10 MG TABLET (FP) PO ONE (15:52)
[2019-07-06 15:57] LABS: BASO % 0.4 % (0-2.0); HEMATOCRIT 42.3 % (35.4-49); HEMOGLOBIN 13.8 GM/dL (11.7-16.9); LYMPH % 21.4 % (8-40); MCH 27.4 pg (25.7-33.7); MCHC 32.5 g/dl (32.0-35.9); MEAN CELL VOLUME 84.4 fl (80-96); MEAN PLT VOLUME 9.2 fl (7.5-11.1); NEUT % 71.2 % (42.8-82.8); PLATELET COUNT 336 K/MM3 (134-434); RBC 5.01 M/mm3 (4.00-5.60); RDW 14.6 % (11.9-15.9); WHITE BLOOD COUNT 11.8 K/mm3 (4.0-10.0)
[2019-07-06] MEDS ORDERED: amLODIPine BESYLATE 5 MG TABLET (FP) ONE (15:57)
[2019-07-06] MEDS ORDERED: ACETAMINOPHEN 325 MG TABLET (FP) PO ONE (16:04)
[2019-07-06 16:15] LABS: INR 1.13 (0.83-1.09); PROTHROMBIN TIME (PATIENT) 13.4 SEC (9.7-13.0)
[2019-07-06 16:18] LABS: ACTIVATED PTT 36.8 SECONDS (25.2-36.5)
[2019-07-06] MEDS ORDERED: ACETAMINOPHEN 325 MG TABLET (FP) ONE (16:24)
[2019-07-06 16:31] LABS: ALK PHOS 96 U/L (45-117); ANION GAP 8 MMOL/L (8-16); BILIRUBIN,TOTAL 0.6 mg/dL (0.2-1); BLOOD UREA NITROGEN 13.9 mg/dL (7-18); CALCIUM 8.7 mg/dL (8.5-10.1); CHLORIDE 105 mmol/L (98-107); CO2 26 mmol/L (21-32); GLUCOSE,RANDOM 107 mg/dL (74-106); SGOT/AST 25 U/L (15-37); SGPT/ALT 51 U/L (13-61); SODIUM 139 mmol/L (136-145); TOT PROT 7.4 g/dl (6.4-8.2)
[2019-07-06 17:08] VITALS: BP 169/109; PULSE 68
== END 2019-07-06 17:33 | disposition home or self-care (01) ==
LOC: JER 12:17
DX: R07.9 Chest pain, unspecified (principal); I10 Essential (primary) hypertension
CPT/HCPCS: 36415; 71046-TC-FY; 80053; 82550; 84484; 85025; 85610; 85730; 93005; 93010; 99282-25

== ENCOUNTER 2020-04-07 05:41 | Inpatient (IN) | payer BC ==
[2020-04-07] MEDS ORDERED: SODIUM CHLORIDE 0.9% 500 ML INFUS.BAG IV ONE (06:08)
[2020-04-07] MEDS ORDERED: ACETAMINOPHEN 1000 MG/100 ML VIAL (NON FORMULARY) IVPB ONE (06:08)
[2020-04-07] MEDS ORDERED: FAMOTIDINE 20 MG/50 ML IVPB 20 MG/50 ML MG IVPB ONE ×2 (06:10→06:25)
[2020-04-07] MEDS ORDERED: MAG HYDROX/AL HYDROX/SIMETH 30 ML UNIT-DOSE CUP PO ONE (06:10)
--- NOTE | 2020-04-07 06:15 | PDOC ---
Attending Attestation - Resident Resident Name: Christos Rojo - ED Attending Attestation I have performed the following: I have examined & evaluated the patient, The case was reviewed & discussed with the resident, I agree w/resident's findings & plan, Exceptions are as noted - HPI HPI: 04/07/20 07:37 See resident HPI - Physicial Exam PE: 04/07/20 07:37 Agree with documented exam - Medical Decision Making 04/07/20 07:37 Consider acute sussy, pancreatitis, gastritis, less likely appy f/u labs, ruq us analgesia re-eval dispo per clinical course Discharge - Discharge Information Problems reviewed: Yes Clinical Impression/Diagnosis: RUQ pain Condition: Stable - Follow up/Referral - Patient Discharge Instructions - Post Discharge Activity
--- NOTE | 2020-04-07 06:19 | PDOC ---
History of Present Illness - General Chief Complaint: Pain, Acute Stated Complaint: ABD PAIN Time Seen by Provider: 04/07/20 05:49 History Source: Patient Exam Limitations: No Limitations - History of Present Illness Initial Comments: 04/07/20 06:11 34M PMH PUD, HTN, obesity c/o 2 days of worsening constant sharp nonradiating RUQ pain w/o n/v, f/c. +BMs and flatus. No prior abd surgery. No change w/ food. Denies etoh, tobacco, drugs; NKDA. Past History - Medical History Allergies/Adverse Reactions: Allergies Allergy/AdvReac Type Severity Reaction Status Date / Time No Known Allergies Allergy Verified 07/06/19 12:39 Home Medications: Ambulatory Orders Amlodipine Besylate [Norvasc -] 5 mg PO DAILY #30 tablet 09/03/18 Amlodipine Besylate [Norvasc -] 10 mg PO DAILY #30 tablet 07/06/19 Anemia: No Asthma: No Cancer: No Cardiac Disorders: No CVA: No COPD: No CHF: No Dementia: No Diabetes: No GI Disorders: No Disorders: No HTN: Yes Hypercholesterolemia: No Liver Disease: No Seizures: No Thyroid Disease: No - Surgical History Abdominal Surgery: No Appendectomy: No Cardiac Surgery: No Cholecystectomy: No GI Surgery: Yes (Duodenal ulcer repaired) Lung Surgery: No Neurologic Surgery: No Orthopedic Surgery: No - Immunization History Immunization Up to Date: Yes - Psycho-Social/Smoking History Smoking Status: No Smoking History: Never smoked Have you smoked in the past 12 months: No Number of Cigarettes Smoked Daily: 0 Information on smoking cessation initiated: No - Substance Abuse Hx (Audit-C & DAST Scrn) How often the patient has a drink containing alcohol: Never Score: In Men: 4 or > Positive; In Women: 3 or > Positive: 0 Screen Result (Pos requires Nsg. Audit-10AR): Negative In the last yr the pt used illegal drug/Rx for NonMed reason: No Score: Yes response is considered Positive: 0 Screen Result (Positive result requires Nsg. DAST-10): Negative Review of Systems - Review of Systems Comments:: 04/07/20 06:24 CONSTITUTIONAL: Denies F / C HEENT: Denies headache, vision changes, sore throat, rhinorrhea RESP: Denies SOB, cough CARD: Denies chest pain GI: +RUQ pain. Denies N / V / D, bloody stool, inability to tolerate PO : Denies dysuria, hematuria, frequency NEURO: Denies numbness, tingling, weakness MSK: Denies back pain SKIN: Denies rashes *Physical Exam - Vital Signs Last Vital Signs Temp Pulse Resp BP Pulse Ox 98.4 F 68 20 188/89 H 100 04/07/20 06:01 04/07/20 06:01 04/07/20 06:01 04/07/20 06:01 04/07/20 06:01 - Physical Exam 04/07/20 06:24 GEN: NAD, AAOx3. HEENT: NC/AT, EOMI, PERRL. No facial asymmetry. Normal voice. Supple neck w/ FROM. CV: S1/S2, RRR, no m/r/g LUNG: CTAB, no wheezes, crackles, rales, rhonchi. GI: +RUQ TTP, +wu, o/w soft, ndnt, +BS, no guarding, no rebound MSK: No LE edema. No obvious deformities of all extremities SKIN: Warm, dry, no rashes appreciated. PSYCH: Moderately anxious NEURO: Moving all extremities well. ambulates w/ normal gait ED Treatment Course - LABORATORY CBC & Chemistry Diagram: 04/07/20 06:19 04/07/20 06:19 Medical Decision Making - Medical Decision Making 04/07/20 06:24 34M c/o 2 days RUQ pain. no n/v/f/c +wu sign. likely gallbladder pathology; consider PUD; unlikely gastroenteritis, pancreat itis - cbc, cmp, lipase - RUQ US - pain ctrl, maalox, pepcid - will sign out to AM team for further management Discharge - Discharge Information Problems reviewed: Yes Clinical Impression/Diagnosis: RUQ pain Condition: Stable - Follow up/Referral - Patient Discharge Instructions - Post Discharge Activity
[2020-04-07] MEDS ORDERED: ACETAMINOPHEN INJECTION 100 ML IVPB ONE (06:25)
[2020-04-07] MEDS ORDERED: MAG HYDROX/AL HYDROX/SIMETH 30 ML UNIT-DOSE CUP ONE (06:25)
[2020-04-07 06:29] LABS: BASO % 0.5 % (0-2.0); EOS % 2.3 % (0-4.5); HEMATOCRIT 41.8 % (35.4-49); HEMOGLOBIN 13.6 GM/dL (11.7-16.9); LYMPH % 32.6 % (8-40); MCH 28.1 pg (25.7-33.7); MCHC 32.6 g/dl (32.0-35.9); MEAN CELL VOLUME 86.2 fl (80-96); MEAN PLT VOLUME 9.3 fl (7.5-11.1); MONO % 6.2 % (3.8-10.2); NEUT % 58.4 % (42.8-82.8); PLATELET COUNT 365 K/MM3 (134-434); RBC 4.86 M/mm3 (4.00-5.60); RDW 14.7 % (11.9-15.9); WHITE BLOOD COUNT 13.9 K/mm3 (4.0-10.0)
[2020-04-07 06:58] LABS: ALBUMIN 3.9 g/dl (3.4-5.0); BILIRUBIN,TOTAL 0.5 mg/dL (0.2-1); BLOOD UREA NITROGEN 17.6 mg/dL (7-18); CALCIUM 9.2 mg/dL (8.5-10.1); CREATININE 1.1 mg/dL (0.55-1.3); POTASSIUM 4.2 mmol/L (3.5-5.1); TOT PROT 7.2 g/dl (6.4-8.2)
--- NOTE | 2020-04-07 07:19 | PDOC ---
*Physical Exam - Vital Signs Last Vital Signs Temp Pulse Resp BP Pulse Ox 98.4 F 60 18 168/89 100 04/07/20 06:01 04/07/20 06:51 04/07/20 06:51 04/07/20 06:51 04/07/20 06:51 - Physical Exam General Appearance: Yes: Appropriately Dressed. No: Apparent Distress HEENT: positive: EOMI, Normal Voice Respiratory/Chest: positive: Lungs Clear, Normal Breath Sounds. negative: Chest Tender, Respiratory Distress Cardiovascular: positive: Regular Rhythm, Regular Rate, S1, S2. negative: Edema Gastrointestinal/Abdominal: positive: Normal Bowel Sounds, Tender, Flat, Soft, Other (Obese. Positive wu's sign (RUQ)) Extremity: positive: Normal Capillary Refill, Normal Inspection. negative: Tender Integumentary: positive: Dry, Warm Neurologic: positive: Fully Oriented, Alert, Normal Mood/Affect ED Treatment Course - LABORATORY CBC & Chemistry Diagram: 04/07/20 06:19 04/07/20 06:19 - ADDITIONAL ORDERS Additional order review: Laboratory Results 04/07/20 06:19 Sodium 139 Potassium 4.2 Chloride 105 Carbon Dioxide 25 Anion Gap 9 BUN 17.6 Creatinine 1.1 Est GFR (CKD-EPI)AfAm 101.69 Est GFR (CKD-EPI)NonAf 87.74 Random Glucose 104 Calcium 9.2 Total Bilirubin 0.5 AST 42 H ALT 88 H Alkaline Phosphatase 92 Total Protein 7.2 Albumin 3.9 Lipase 117 04/07/20 06:19 RBC 4.86 MCV 86.2 MCHC 32.6 RDW 14.7 MPV 9.3 Neutrophils % 58.4 Lymphocytes % 32.6 D Monocytes % 6.2 Eosinophils % 2.3 Basophils % 0.5 - Medications Given in the ED: ED Medications Discontinued Medications Generic Name Dose Route Start Last Admin Trade Name Freq PRN Reason Stop Dose Admin Acetaminophen 1,000 mg 04/07/20 06:08 04/07/20 06:38 Ofirmev Injection - IVPB 04/07/20 06:09 1,000 mg ONCE ONE Administration Al Hydroxide/Mg Hydroxide 30 ml 04/07/20 06:10 04/07/20 06:39 Mylanta Oral Suspension - PO 04/07/20 06:11 30 ml ONCE ONE Administration Famotidine/Sodium Chloride 20 mg in 50 mls @ 100 mls/hr 04/07/20 06:10 04/07/20 06:39 Pepcid 20 Mg Premixed Ivpb - IVPB 04/07/20 06:39 100 mls/hr ONCE ONE Administration Sodium Chloride 1,000 ml 04/07/20 06:08 04/07/20 06:38 Normal Saline - IV 04/07/20 06:09 1,000 ml ONCE ONE Administration Medical Decision Making - Medical Decision Making 34 yo male with PMH of obesity and HTN presents with RUQ with positive wu's. Pt had an elevated WBC (13.4) and mildly elevated liver enzymes (AST 42/ALT88). US imaging read did not identify any large stones but s unable to rule out sludge or small stones due to the large body habitus. US identified hepatomegaly secondary to fatty infiltration vs hepatocellular disease. Pt was given tylenol, maalox, famotidine which is adequately controlling the pain. We consulted Dr. Villar who advised to perform a HIDA scan, administer 1g Rocephen, and place NPO prior to the potential surgery on Friday. 04/07/20 10:30 04/07/20 13:52 04/07/20 18:08 Discharge - Discharge Information Problems reviewed: Yes Clinical Impression/Diagnosis: RUQ pain Condition: Stable - Admission Yes - Follow up/Referral - Patient Discharge Instructions - Post Discharge Activity
[2020-04-07] MEDS ORDERED: morphine CARPU-JECT 2 MG/1 ML DISP.SYRIN IVPUSH ONE (10:35)
[2020-04-07] MEDS ORDERED: MORPHINE SULFATE 2 MG/ML VIAL ONE (10:41)
[2020-04-07] MEDS ORDERED: ONDANSETRON 4 MG/2 ML VIAL IVPUSH ONE (10:47)
--- NOTE | 2020-04-07 13:12 | PN ---
Teaching Attending Note Name of Resident: Muriel Santiago ATTENDING PHYSICIAN STATEMENT I saw and evaluated the patient. I reviewed the resident's note and discussed the case with the resident. I agree with the resident's findings and plan as documented. SUBJECTIVE: Right upper quadrant pain OBJECTIVE: Vital Signs Temperature 98.2 F 04/07/20 11:00 Pulse Rate 56 L 04/07/20 11:00 Respiratory Rate 18 04/07/20 06:51 Blood Pressure 186/98 H 04/07/20 11:00 O2 Sat by Pulse Oximetry (%) 98 04/07/20 11:00 General: Young complains right upper quadrant pain and mild distress due to pain HEENT mucous membranes moist, no anemia, no jaundice, PERRLA, no nystagmus Neck: No JVD, supple, no bruit, thyroid palpably normal, normal carotid pulsations. Chest: Nontender, clear to auscultation bilaterally CVS: S1-S2 regular no murmur/gallop/rub Abdomen: Mild right, no rebound ,nondistended, soft, bowel sounds present. Extremities: No edema., No Calf tenderness, pulses present TRANSCRIPTION: AO X3 , no gross motor sensory deficit CBC,CMP WBC 13.9 K/mm3 (4.0-10.0) H 04/07/20 06:19 RBC 4.86 M/mm3 (4.00-5.60) 04/07/20 06:19 Hgb 13.6 GM/dL (11.7-16.9) 04/07/20 06:19 Hct 41.8 % (35.4-49) 04/07/20 06:19 MCV 86.2 fl (80-96) 04/07/20 06:19 MCH 28.1 pg (25.7-33.7) 04/07/20 06:19 MCHC 32.6 g/dl (32.0-35.9) 04/07/20 06:19 RDW 14.7 % (11.9-15.9) 04/07/20 06:19 Plt Count 365 K/MM3 (134-434) 04/07/20 06:19 MPV 9.3 fl (7.5-11.1) 04/07/20 06:19 Absolute Neuts (auto) 8.1 K/mm3 (1.5-8.0) H 04/07/20 06:19 Neutrophils % 58.4 % (42.8-82.8) 04/07/20 06:19 Lymphocytes % 32.6 % (8-40) D 04/07/20 06:19 Monocytes % 6.2 % (3.8-10.2) 04/07/20 06:19 Eosinophils % 2.3 % (0-4.5) 04/07/20 06:19 Basophils % 0.5 % (0-2.0) 04/07/20 06:19 Nucleated RBC % 0 % (0-0) 04/07/20 06:19 Sodium 139 mmol/L (136-145) 04/07/20 06:19 Potassium 4.2 mmol/L (3.5-5.1) 04/07/20 06:19 Chloride 105 mmol/L (98-107) 04/07/20 06:19 Carbon Dioxide 25 mmol/L (21-32) 04/07/20 06:19 Anion Gap 9 MMOL/L (8-16) 04/07/20 06:19 BUN 17.6 mg/dL (7-18) 04/07/20 06:19 Creatinine 1.1 mg/dL (0.55-1.3) 04/07/20 06:19 Est GFR (CKD-EPI)AfAm 101.69 04/07/20 06:19 Est GFR (CKD-EPI)NonAf 87.74 04/07/20 06:19 Random Glucose 104 mg/dL (74-106) 04/07/20 06:19 Calcium 9.2 mg/dL (8.5-10.1) 04/07/20 06:19 Total Bilirubin 0.5 mg/dL (0.2-1) 04/07/20 06:19 AST 42 U/L (15-37) H 04/07/20 06:19 ALT 88 U/L (13-61) H 04/07/20 06:19 Alkaline Phosphatase 92 U/L (45-117) 04/07/20 06:19 Total Protein 7.2 g/dl (6.4-8.2) 04/07/20 06:19 Albumin 3.9 g/dl (3.4-5.0) 04/07/20 06:19 Lipase 117 U/L (73-393) 04/07/20 06:19 Chest x-ray: Right upper quadrant region: CT scan abdomen pelvis: ASSESSMENT AND PLAN: 39 years old m, morbid obesity BMI , hypertension history of GI bleed in 2018 that shows duodenal ulcer, today presented with right upper quadrant pain with no nausea vomiting, started yesterday gradually worsening constant, 7 out of 10, nonradiating, in the ED elevated T WBC, mild transaminitis, normal alkaline phosphatase, initial abdominal ultrasound shows no obvious gallstone no CBD dilatation possibility ofsmall stone or sludge, CT scan abdomen performed that show normal CBD, no sign of acute stent, fatty liver considering presentation patient is being admitted to rule out acute cholecystitis. Active issues: Right upper quadrant pain rule out acute cholecystitis: Clinical presentation right upper quadrant pain with positive Dukes sign suggestive of acute cholecystitis but there is no radiological evidence, n.p.o., pain control, IV PPI, Zofran as needed, D5 half normal saline with 10 mEq KCl 100 cc/h surgery surgery was consulted recommended IV antibiotic and HIDA, ceftriaxone and metronidazole pending HIDA scan. Transaminitis: Can be due to obesity related INGRAM Hypertension: Continue amlodipine SCD for DVT prophylaxis discussed with the resident
--- NOTE | 2020-04-07 14:44 | HP ---
CHIEF COMPLAINT: right upper subcostal pain PCP: HISTORY OF PRESENT ILLNESS: 34M w/ pmh of HTN, PUD(duodenal ulcer in 2018 dx via EGD) presenting to [facility] w/ complaint of Right upper abdominal pain x2d. Had sensation of sharp Right-sided subcostal/abd pain ~8 of 10 in intensity. Pain is not associated with food intake, or after meals. Thinks pain is worse with certain twisting movements, and deep breathes. States that the ED-administered morphine made his Right-sided pain worse along with making him nauseous. Thinks pain is mildly relieved when he presses his hand against his Right-sided ribs. Decided to come to the Hospital after googling his symptoms and speaking to his EMS friend. Denies history of GB stones. Has had a history of eating poorly, but has made a conscious decision to eat healthy chicken and salad choices in the last 2 weeks. Has an appetite. Denies F/C/N/V/D. No sick contacts. Has been social distancing. 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 Was on amlodipine 10mg but ran out ~1week prior. ER course was notable for: (1) Tmax 98.4, HR 60, BP 186/98 (2) WBC 13.9(Neutrophils 52.6%) (3) Tbil 0.5, AST/ALT 42/88, AP 92, lipase 117 (4) US RUQ: limited by body habitus, No GB wall thickeneing, no pericholecystic free fluid, liver 19.7cm (5) CT A/P: GB w/o gallstones, no pericholecstic stranding, no evidence to suggest acute cholecystitis. Hepatic steatosis. Shotty periaortic adenopathy measuring up to 5mm in short axis. Small fat-containging paraumbilical hernia w/ no stranding (6) zofran, pepcid, mylanta, ofirmev, Rocephin, Morphine 2mg (7) ED contacted [facility] who recommended admission for Rocephin + HIDA, possible Friday surgery Recent Travel: denies PAST MEDICAL HISTORY: as above PAST SURGICAL HISTORY: sinus surgery Social History: Smoking: denies Alcohol: denies Drugs: denies Allergies No Known Allergies Allergy (Verified 07/06/19 12:39) HOME MEDICATIONS: Home Medications Medication Instructions Recorded Amlodipine Besylate [Norvasc -] 5 mg PO DAILY #30 tablet 09/03/18 Amlodipine Besylate [Norvasc -] 10 mg PO DAILY #30 tablet 07/06/19 REVIEW OF SYSTEMS CONSTITUTIONAL: Absent: fever, chills, diaphoresis, generalized weakness, malaise, loss of appetite, weight change HEENT: Absent: rhinorrhea, nasal congestion, throat pain, throat swelling, difficulty swallowing, mouth swelling, ear pain, eye pain, visual changes CARDIOVASCULAR: Absent: chest pain, syncope, palpitations, irregular heart rate, lightheadedness, peripheral edema RESPIRATORY: Absent: cough, shortness of breath, dyspnea with exertion, orthopnea, wheezing, stridor, hemoptysis GASTROINTESTINAL: Absent: abdominal pain, abdominal distension, nausea, vomiting, diarrhea, constipation, melena, hematochezia GENITOURINARY: Absent: dysuria, frequency, urgency, hesitancy, hematuria, flank pain, genital pain MUSCULOSKELETAL: Absent: myalgia, arthralgia, joint swelling, back pain, neck pain SKIN: Absent: rash, itching, pallor HEMATOLOGIC/IMMUNOLOGIC: Absent: easy bleeding, easy bruising, lymphadenopathy, frequent infections ENDOCRINE: Absent: unexplained weight gain, unexplained weight loss, heat intolerance, cold intolerance NEUROLOGIC: Absent: headache, focal weakness or paresthesias, dizziness, unsteady gait, seizure, mental status changes, bladder or bowel incontinence PSYCHIATRIC: Absent: anxiety, depression, suicidal or homicidal ideation, hallucinations. PHYSICAL EXAMINATION Vital Signs - 24 hr 04/07/20 04/07/20 04/07/20 06:01 06:51 11:00 Temperature 98.4 F 98.2 F Pulse Rate 68 Pulse Rate [ 60 56 L Apical] Respiratory 20 18 Rate Blood Pressure 188/89 H Blood Pressure 168/89 186/98 H [Left Arm] O2 Sat by Pulse 100 100 98 Oximetry (%) GENERAL: Awake, alert, and fully oriented, in no acute distress. Mild obesity HEAD: NC/AT EYES: sclera anicteric, conjunctiva clear and w/o pallor EARS, NOSE, THROAT: oropharynx clear without exudates. Moist mucous membranes. NECK: Normal range of motion, supple without lymphadenopathy, JVD, or masses. LUNGS: Breath sounds equal, clear to auscultation bilaterally. No wheezes, and no crackles. No accessory muscle use. Breathing comfortably on RA HEART: Regular rate and rhythm, normal S1 and S2 without murmur, rub or gallop. ABDOMEN: Soft, not distended, normoactive bowel sounds, TTP of RUQ, Neg Dukes's(pt does NOT have cessation of inspiration with deep palpation of the subcostal region); no guarding, no rebound. NonTTP of anterior chest wall MUSCULOSKELETAL: Normal range of motion at all joints. No bony deformities or tenderness. No CVA tenderness. UPPER EXTREMITIES: 2+ pulses, warm, well-perfused. LOWER EXTREMITIES: 2+ pulses, warm, well-perfused. No calf tenderness. No peripheral edema. NEUROLOGICAL: Normal speech. Laboratory Results - last 24 hr 04/07/20 04/07/20 06:19 06:19 WBC 13.9 H RBC 4.86 Hgb 13.6 Hct 41.8 MCV 86.2 MCH 28.1 MCHC 32.6 RDW 14.7 Plt Count 365 MPV 9.3 Absolute Neuts (auto) 8.1 H Neutrophils % 58.4 Lymphocytes % 32.6 D Monocytes % 6.2 Eosinophils % 2.3 Basophils % 0.5 Nucleated RBC % 0 Sodium 139 Potassium 4.2 Chloride 105 Carbon Dioxide 25 Anion Gap 9 BUN 17.6 Creatinine 1.1 Est GFR (CKD-EPI)AfAm 101.69 Est GFR (CKD-EPI)NonAf 87.74 Random Glucose 104 Calcium 9.2 Total Bilirubin 0.5 AST 42 H ALT 88 H Alkaline Phosphatase 92 Total Protein 7.2 Albumin 3.9 Lipase 117 ASSESSMENT/PLAN: 34M w/ pmh of HTN, PUD(duodenal ulcer in 2018 dx via EGD) presenting to [facility] w/ complaint of Right upper abdominal pain x2d w/o fever, chills, nausea, or vomiting. ED thought possible acute cholecystitis, contacted Surgery([facility]). Pt is admitted for RUQ abdominal pain possibly 2/2 "cholecystitis". #RUQ abominal/subcostal pain --possibly 2/2 cholecystitis, vs symptomatic cholelithiasis vs transisent sphincter of Oddi dysfunction vs Do's capsule distension vs costrochondritis > Tmax 98.4, HR 60, BP 186/98 > WBC 13.9(Neutrophils 52.6%) > Tbil 0.5, AST/ALT 42/88, AP 92, lipase 117 > US RUQ: limited by body habitus, No GB wall thickeneing, no pericholecystic free fluid, liver 19.7cm > CT A/P: GB w/o gallstones, no pericholecstic stranding, no evidence to suggest acute cholecystitis. Hepatic steatosis. Shotty periaortic adenopathy measuring up to 5mm in short axis. Small fat-containging paraumbilical hernia w/ no stranding - pain mgmt: --acetaminophen - empiric cholecystitis abx coverage: --ceftriaxone + flagyl d1 - Surg consult([facility]): --rec ceftriaxone +HIDA(pending) #transaminitis --likely 2/2 to obesity > AST/ALT 42/88 - trend - counseled on diet modification, weight loss #chronic HTN - cw home Amlodipine 10 FEN - D5 1/2 NSK @100 - NPO DVT PPX - SCDs Family Medical History Family Hx Cancer: Mother Family Hx Cardiac Disorders: Grandmother (maternal) Visit type - Emergency Visit Emergency Visit: Yes ED Registration Date: 04/07/20 Care time: The patient presented to the Emergency Department on the above date and was hospitalized for further evaluation of their emergent condition. - New Patient This patient is new to me today: Yes Date on this admission: 04/07/20 - Critical Care Critical Care patient: No ATTENDING PHYSICIAN STATEMENT I saw and evaluated the patient. I reviewed the resident's note and discussed the case with the resident. I agree with the resident's findings and plan as documented. SUBJECTIVE: OBJECTIVE: ASSESSMENT AND PLAN:
[2020-04-07] MEDS ORDERED: cefTRIAXone SODIUM 1 GM VIAL ONE (14:59)
[2020-04-07 15:38] LABS: MAGNESIUM 2.3 mg/dL (1.8-2.4); PHOSPHOROUS 4.2 mg/dL (2.5-4.9)
[2020-04-07] MEDS: D5-1/2NS+20 MEQ KCL - 20 MEQ/1,000 ML INFUS.BAG IV SCH (17:46)
[2020-04-07] MEDS ORDERED: amLODIPine BESYLATE 5 MG TABLET (FP) ONE (19:00)
[2020-04-07] MEDS: amLODIPine BESYLATE 10 MG TABLET (FP) PO SCH (19:04)
[2020-04-08 00:17] LABS: PH,URINE 7.5 (5.0-8.0); URINE APPEARANCE CLEAR; URINE BILIRUBIN NEGATIVE (NEGATIVE); URINE COLOR YELLOW; URINE GLUCOSE (UA) NEGATIVE (NEGATIVE); URINE KETONE NEGATIVE (NEGATIVE); URINE LEUK ESTERASE NEGATIVE (NEGATIVE); URINE NITRITE NEGATIVE (NEGATIVE); URINE PROTEIN NEGATIVE (NEGATIVE); URINE UROBILINOGEN 0.2 mg/dL (0.2-1.0)
[2020-04-08] MEDS: ACETAMINOPHEN 325 MG TABLET (FP) PO PRN ×2 (01:39→23:59)
[2020-04-08] MEDS: D5-1/2NS+20 MEQ KCL - 20 MEQ/1,000 ML INFUS.BAG IV SCH ×2 (01:39→16:22)
[2020-04-08] MEDS: ONDANSETRON 4 MG/2 ML VIAL IVPUSH PRN ×2 (02:21→23:59)
[2020-04-08 07:40] LABS: HEMATOCRIT 42.8 % (35.4-49); HEMOGLOBIN 13.9 GM/dL (11.7-16.9); MCH 27.7 pg (25.7-33.7); MCHC 32.4 g/dl (32.0-35.9); MEAN CELL VOLUME 85.5 fl (80-96); PLATELET COUNT 329 K/MM3 (134-434); RDW 14.3 % (11.9-15.9); WHITE BLOOD COUNT 11.8 K/mm3 (4.0-10.0)
[2020-04-08 08:08] LABS: BLOOD UREA NITROGEN 8.4 mg/dL (7-18); CALCIUM 8.9 mg/dL (8.5-10.1); CREATININE 0.8 mg/dL (0.55-1.3); MAGNESIUM 2.4 mg/dL (1.8-2.4); PHOSPHOROUS 3.4 mg/dL (2.5-4.9); POTASSIUM 3.9 mmol/L (3.5-5.1)
[2020-04-08] MEDS ORDERED: PT OWN MED DRAWER 7, Y5N ONE (09:10)
[2020-04-08] MEDS: PANTOPRAZOLE 40 MG TABLET PO SCH (09:16)
[2020-04-08] MEDS: amLODIPine BESYLATE 10 MG TABLET (FP) PO SCH (09:16)
[2020-04-08] MEDS ORDERED: cefTRIAXone SODIUM 1 GM VIAL ONE (09:24)
[2020-04-08] MEDS ORDERED: DEXTROSE 5%-WATER - 50 ML IVPB ONE (09:25)
--- NOTE | 2020-04-08 09:28 | PN ---
Progress Note (short form) - Note Progress Note: Attending Surgeon Seen in f/u; feels the same; not very interactive w/his answers. VSS AF abdo-soft; RUQ tenderness persists; o/w negative WBC decreased IMP: acute cholecystitis PLAN: Continue NPO/IVF/IVABS; lap sussy possible open 04/10/2020. Willie Villar MD FACS
[2020-04-08] MEDS ORDERED: ENOXAPARIN NA (PORCINE) 40 MG/0.4 ML DISP.SYRIN SQ SCH (10:00)
[2020-04-08] MEDS: CEFTRIAXONE 1 GM in DEXTROSE 5%-WATER - 50 ML IVPB SCH (10:24)
--- NOTE | 2020-04-08 15:06 | EKG ---
Test Reason : Blood Pressure : / mmHG Vent. Rate : 056 BPM Atrial Rate : 056 BPM P-R Int : 138 ms QRS Dur : 094 ms QT Int : 448 ms P-R-T Axes : 029 024 057 degrees QTc Int : 432 ms SINUS BRADYCARDIA NONSPECIFIC T WAVE ABNORMALITY ABNORMAL ECG WHEN COMPARED WITH ECG OF 06-JUL-2019 12:18, NO SIGNIFICANT CHANGE WAS FOUND Confirmed by WASHINGTON BOWMAN MD ([id number]) on 04/08/2020 3:06:46 PM Referred By: Confirmed By:WASHINGTON BOWMAN MD
--- NOTE | 2020-04-08 18:29 | PN ---
Physical Exam: 34M w/ pmh of HTN, PUD(duodenal ulcer in 2018 dx via EGD) presenting to [facility] w/ complaint of Right upper abdominal pain x2d. SUBJECTIVE: Patient seen and examined at bedside, sitting on chair, still complains from pain OBJECTIVE: Vital Signs Period Temp Pulse Resp BP Sys/Ramos Pulse Ox Last 24 Hr 97.4 F-98.9 F 51-67 18-20 133-169/71-95 96-99 GENERAL: The patient is awake, alert, and fully oriented HEAD: Normal with no signs of trauma. EYES: PERRL, extraocular movements intact, sclera anicteric, conjunctiva clear. No ptosis. ENT: Ears normal, nares patent, oropharynx clear without exudates, moist mucous membranes. NECK: Trachea midline, full range of motion, supple. LUNGS: Breath sounds equal, clear to auscultation bilaterally, no wheezes, no crackles, no accessory muscle use. HEART: Regular rate and rhythm, S1, S2 without murmur, rub or gallop. ABDOMEN: obese, Soft, RUQ tenderness, wu sign negative, nondistended, normoactive bowel sounds, no guarding, no rebound, no hepatosplenomegaly, no masses. EXTREMITIES: 2+ pulses, warm, well-perfused, no edema. NEUROLOGICAL: Cranial nerves II through XII grossly intact. Normal speech, gait not observed. PSYCH: Normal mood, normal affect. SKIN: Warm, dry, normal turgor, no rashes or lesions noted Laboratory Results - last 24 hr 04/07/20 04/07/20 04/08/20 15:00 22:38 07:26 WBC 11.8 H RBC 5.00 Hgb 13.9 Hct 42.8 MCV 85.5 MCH 27.7 MCHC 32.4 RDW 14.3 Plt Count 329 MPV 9.0 Sodium Potassium Chloride Carbon Dioxide Anion Gap BUN Creatinine Est GFR (CKD-EPI)AfAm Est GFR (CKD-EPI)NonAf Random Glucose Calcium Phosphorus Magnesium Urine Color Yellow Urine Appearance Clear Urine pH 7.5 Ur Specific [place] 1.010 Urine Protein Negative Urine Glucose (UA) Negative Urine Ketones Negative Urine Blood Negative Urine Nitrite Negative Urine Bilirubin Negative Urine Urobilinogen 0.2 Ur Leukocyte Esterase Negative COVID-19 ([place]) Not detected 04/08/20 07:26 WBC RBC Hgb Hct MCV MCH MCHC RDW Plt Count MPV Sodium 138 Potassium 3.9 Chloride 105 Carbon Dioxide 26 Anion Gap 7 L BUN 8.4 Creatinine 0.8 Est GFR (CKD-EPI)AfAm 136.03 Est GFR (CKD-EPI)NonAf 117.37 Random Glucose 123 H Calcium 8.9 Phosphorus 3.4 Magnesium 2.4 Urine Color Urine Appearance Urine pH Ur Specific [place] Urine Protein Urine Glucose (UA) Urine Ketones Urine Blood Urine Nitrite Urine Bilirubin Urine Urobilinogen Ur Leukocyte Esterase COVID-19 ([place]) Active Medications Generic Name Dose Route Start Last Admin Trade Name Freq PRN Reason Stop Dose Admin Acetaminophen 650 mg 04/07/20 16:14 04/08/20 01:39 Tylenol - PO 650 mg Q4H PRN Administration PAIN LEVEL 6-10 Amlodipine Besylate 10 mg 04/07/20 18:00 04/08/20 09:16 Norvasc - PO 10 mg DAILY LEN Administration Potassium Chloride/Dextrose/Sod Cl 20 meq in 1,000 mls @ 100 mls/hr 04/07/20 16:15 04/08/20 16:22 D5-1/2ns+20 Meq Kcl - IV 100 mls/hr ASDIR LEN Administration Metronidazole 500 mg in 100 mls @ 100 mls/hr 04/07/20 18:00 04/08/20 17:33 Flagyl 500mg Premixed Ivpb - IVPB 100 mls/hr Q8H-IV LEN Administration Ceftriaxone Sodium 1 gm/ 50 mls @ 100 mls/hr 04/08/20 10:00 04/08/20 10:24 Dextrose IVPB 100 mls/hr DAILY LEN Administration Ondansetron HCl 4 mg 04/07/20 16:26 04/08/20 02:21 Zofran Injection IVPUSH 4 mg Q6H PRN Administration NAUSEA Pantoprazole Sodium 40 mg 04/08/20 10:00 04/08/20 09:16 Protonix - PO 40 mg DAILY LEN Administration ASSESSMENT/PLAN: #RUQ abominal/subcostal pain - possible acute cholecystitis, VS INGRAM - WBC trending down - Tbil 0.5, AST/ALT 42/88, AP 92, lipase 117 - US RUQ: limited by body habitus, No GB wall thickeneing, no pericholecystic free fluid, liver 19.7cm - CT A/P: GB w/o gallstones, no pericholecstic stranding, no evidence to suggest acute cholecystitis. Hepatic steatosis. Shotty periaortic adenopathy measuring up to 5mm in short axis. Small fat-containging paraumbilical hernia w/ no stranding - pain mgmt, IV fluids, IV antibiotics - Surg consult appreciated - HIDA scan pending, possible lap sussy on 04/10 #transaminitis 2/2 NAFLD - AST/ALT 42/88 - trend - counseled on diet modification, weight loss #chronic HTN - cw home Amlodipine 10 - DVT PPX SCDs Visit type - Emergency Visit Emergency Visit: Yes ED Registration Date: 04/07/20 Care time: The patient presented to the Emergency Department on the above date and was hospitalized for further evaluation of their emergent condition. - New Patient This patient is new to me today: Yes Date on this admission: 04/08/20 - Critical Care Critical Care patient: No - Discharge Referral Referred to [facility] Med P.C.: No
[2020-04-09] MEDS: D5-1/2NS+20 MEQ KCL - 20 MEQ/1,000 ML INFUS.BAG IV SCH ×2 (05:14→16:34)
[2020-04-09 09:09] LABS: BASO % 0.4 % (0-2.0); MCH 28.1 pg (25.7-33.7); MCHC 32.6 g/dl (32.0-35.9); MEAN CELL VOLUME 86.4 fl (80-96); MEAN PLT VOLUME 9.4 fl (7.5-11.1); NEUT % 66.6 % (42.8-82.8); PLATELET COUNT 338 K/MM3 (134-434); RBC 4.98 M/mm3 (4.00-5.60); RDW 14.3 % (11.9-15.9); WHITE BLOOD COUNT 10.8 K/mm3 (4.0-10.0)
[2020-04-09 09:15] LABS: INR 1.18 (0.83-1.09); PROTHROMBIN TIME (PATIENT) 13.9 SEC (9.7-13.0)
[2020-04-09 09:40] LABS: ALBUMIN 3.5 g/dl (3.4-5.0); BILIRUBIN,TOTAL 0.6 mg/dL (0.2-1); BLOOD UREA NITROGEN 9.2 mg/dL (7-18); CALCIUM 8.6 mg/dL (8.5-10.1); CREATININE 0.9 mg/dL (0.55-1.3); MAGNESIUM 2.3 mg/dL (1.8-2.4)
[2020-04-09] MEDS: PANTOPRAZOLE 40 MG TABLET PO SCH (10:02)
[2020-04-09] MEDS: amLODIPine BESYLATE 10 MG TABLET (FP) PO SCH (10:03)
--- NOTE | 2020-04-09 10:11 | PN ---
Progress Note (short form) - Note Progress Note: Attending Surgeon No c/o; more animated and engaged today VSS AF abdo-soft; non tender WBC 10.8 IMP: ? biliary colic ?; ?acute cholecystitis ? PLAN: Would try and proceed wuth HIDA scan as early as possible in AM; if positive for acute cholecystitis/cystic duct obstruction would recommend proceeding w/lap sussy; if not he is not sure he wants to have surgery; CT is essentially negative for acute cholecystitis and US findings are extremely "soft" ; will start on cleat liquids today and NPO after MN. Willie Villar MD FACS
[2020-04-09] MEDS ORDERED: cefTRIAXone SODIUM 1 GM VIAL ONE (11:45)
[2020-04-09] MEDS ORDERED: DEXTROSE 5%-WATER - 50 ML IVPB ONE (11:45)
[2020-04-09] MEDS: CEFTRIAXONE 1 GM in DEXTROSE 5%-WATER - 50 ML IVPB SCH (11:48)
--- NOTE | 2020-04-09 15:39 | PN ---
Physical Exam: 34M w/ pmh of HTN, PUD(duodenal ulcer in 2018 dx via EGD) presenting to [facility] w/ complaint of Right upper abdominal pain x2d. SUBJECTIVE: Patient seen and examined sitting on chair, still complains from pain, stated decreased but not completely resolved OBJECTIVE: Vital Signs Period Temp Pulse Resp BP Sys/Ramos Pulse Ox Last 24 Hr 97.3 F-98.7 F 59-69 20-20 120-131/69-77 63-100 GENERAL: The patient is awake, alert, and fully oriented HEAD: Normal with no signs of trauma. EYES: PERRL, extraocular movements intact, sclera anicteric, conjunctiva clear. No ptosis. ENT: Ears normal, nares patent, oropharynx clear without exudates, moist mucous membranes. NECK: Trachea midline, full range of motion, supple. LUNGS: Breath sounds equal, clear to auscultation bilaterally, no wheezes, no crackles, no accessory muscle use. HEART: Regular rate and rhythm, S1, S2 without murmur, rub or gallop. ABDOMEN: obese, Soft, RUQ tenderness, wu sign negative, nondistended, normoactive bowel sounds, no guarding, no rebound, no hepatosplenomegaly, no masses. EXTREMITIES: 2+ pulses, warm, well-perfused, no edema. NEUROLOGICAL: Cranial nerves II through XII grossly intact. Normal speech, gait not observed. PSYCH: Normal mood, normal affect. SKIN: Warm, dry, normal turgor, no rashes or lesions noted Laboratory Results - last 24 hr 04/09/20 04/09/20 04/09/20 07:55 07:55 07:55 WBC 10.8 H RBC 4.98 Hgb 14.0 Hct 43.0 MCV 86.4 MCH 28.1 MCHC 32.6 RDW 14.3 Plt Count 338 MPV 9.4 Absolute Neuts (auto) 7.2 Neutrophils % 66.6 Lymphocytes % 24.0 D Monocytes % 7.0 Eosinophils % 2.0 Basophils % 0.4 Nucleated RBC % 0 PT with INR 13.90 H INR 1.18 H Sodium 137 Potassium 4.0 Chloride 104 Carbon Dioxide 26 Anion Gap 6 L BUN 9.2 Creatinine 0.9 Est GFR (CKD-EPI)AfAm 129.61 Est GFR (CKD-EPI)NonAf 111.83 Random Glucose 103 Calcium 8.6 Magnesium 2.3 Total Bilirubin 0.6 AST 22 ALT 60 Alkaline Phosphatase 85 Total Protein 7.0 Albumin 3.5 Active Medications Generic Name Dose Route Start Last Admin Trade Name Freq PRN Reason Stop Dose Admin Acetaminophen 650 mg 04/07/20 16:14 04/08/20 23:59 Tylenol - PO 650 mg Q4H PRN Administration PAIN LEVEL 6-10 Amlodipine Besylate 10 mg 04/07/20 18:00 04/09/20 10:03 Norvasc - PO 10 mg DAILY LEN Administration Potassium Chloride/Dextrose/Sod Cl 20 meq in 1,000 mls @ 100 mls/hr 04/07/20 16:15 04/09/20 05:14 D5-1/2ns+20 Meq Kcl - IV 100 mls/hr ASDIR LEN Administration Metronidazole 500 mg in 100 mls @ 100 mls/hr 04/07/20 18:00 04/09/20 10:03 Flagyl 500mg Premixed Ivpb - IVPB 100 mls/hr Q8H-IV LEN Administration Ceftriaxone Sodium 1 gm/ 50 mls @ 100 mls/hr 04/08/20 10:00 04/09/20 11:48 Dextrose IVPB 100 mls/hr DAILY LEN Administration Ondansetron HCl 4 mg 04/07/20 16:26 04/08/20 23:59 Zofran Injection IVPUSH 4 mg Q6H PRN Administration NAUSEA Pantoprazole Sodium 40 mg 04/08/20 10:00 04/09/20 10:02 Protonix - PO 40 mg DAILY LEN Administration ASSESSMENT/PLAN: #RUQ abominal/subcostal pain - possible acute cholecystitis, VS INGRAM - WBC and LFT trending down - HIDA scan requested - pain mgmt, IV fluids, IV antibiotics - Surg consult appreciated #transaminitis likely due to NAFLD/INGRAM - AST/ALT 42/88 - trend - counseled on diet modification, weight loss, will need outpatient follow up by hepatology #chronic HTN - cw home Amlodipine 10 - DVT PPX SCDs Visit type - Emergency Visit Emergency Visit: Yes ED Registration Date: 04/07/20 Care time: The patient presented to the Emergency Department on the above date and was hospitalized for further evaluation of their emergent condition. - New Patient This patient is new to me today: No - Critical Care Critical Care patient: No - Discharge Referral Referred to [facility] No
[2020-04-10] MEDS: D5-1/2NS+20 MEQ KCL - 20 MEQ/1,000 ML INFUS.BAG IV SCH (04:38)
[2020-04-10 08:38] LABS: BASO % 0.3 % (0-2.0); EOS % 2.4 % (0-4.5); HEMATOCRIT 41.9 % (35.4-49); HEMOGLOBIN 13.5 GM/dL (11.7-16.9); LYMPH % 23.5 % (8-40); MCH 27.7 pg (25.7-33.7); MCHC 32.2 g/dl (32.0-35.9); MEAN CELL VOLUME 86.1 fl (80-96); MONO % 7.4 % (3.8-10.2); NEUT % 66.4 % (42.8-82.8); PLATELET COUNT 360 K/MM3 (134-434); RBC 4.87 M/mm3 (4.00-5.60); RDW 14.3 % (11.9-15.9); WHITE BLOOD COUNT 11.1 K/mm3 (4.0-10.0)
[2020-04-10 09:09] LABS: ALBUMIN 3.6 g/dl (3.4-5.0); BILIRUBIN,TOTAL 0.6 mg/dL (0.2-1); BLOOD UREA NITROGEN 9.5 mg/dL (7-18); POTASSIUM 4.2 mmol/L (3.5-5.1); TOT PROT 6.9 g/dl (6.4-8.2)
[2020-04-10] MEDS ORDERED: DEXTROSE 5%-WATER - 50 ML IVPB ONE (10:32)
[2020-04-10] MEDS ORDERED: cefTRIAXone SODIUM 1 GM VIAL ONE (10:32)
[2020-04-10] MEDS: PANTOPRAZOLE 40 MG TABLET PO SCH (10:36)
[2020-04-10] MEDS: CEFTRIAXONE 1 GM in DEXTROSE 5%-WATER - 50 ML IVPB SCH (10:36)
[2020-04-10] MEDS: amLODIPine BESYLATE 10 MG TABLET (FP) PO SCH (10:36)
[2020-04-10 13:50] VITALS: BMI 44.3
[2020-04-10 15:49] VITALS: PULSE 61; TEMP 98.1
[2020-04-10 15:50] VITALS: BP 122/82
--- NOTE | 2020-04-10 15:53 | PN ---
Progress Note (short form) - Note Progress Note: Attending Surgeon No c/o e/f pain w/ROM; minimal VSS AF abdo-benign HIDA negative excluding acute cholecystits IMP: abdominal pain; ? MSP ?; ? PUD PLAN: Advance diet as tolerated; outpatient f/u in my office and suggest outpatient GI f/u. Willie Villar MD FACS
--- NOTE | 2020-04-10 17:08 | PN ---
Physical Exam: SUBJECTIVE: Patient seen and examined OBJECTIVE: Vital Signs Period Temp Pulse Resp BP Sys/Ramos Pulse Ox Last 24 Hr 98.1 F-98.6 F 54-66 20-20 114-147/64-82 98-99 GENERAL: The patient is awake, alert, and fully oriented, in no acute distress. HEAD: Normal with no signs of trauma. EYES: PERRL, extraocular movements intact, sclera anicteric, conjunctiva clear. No ptosis. ENT: Ears normal, nares patent, oropharynx clear without exudates, moist mucous membranes. NECK: Trachea midline, full range of motion, supple. LUNGS: Breath sounds equal, clear to auscultation bilaterally, no wheezes, no crackles, no accessory muscle use. HEART: Regular rate and rhythm, S1, S2 without murmur, rub or gallop. ABDOMEN: Soft, nontender, nondistended, normoactive bowel sounds, no guarding, no rebound, no hepatosplenomegaly, no masses. EXTREMITIES: 2+ pulses, warm, well-perfused, no edema. NEUROLOGICAL: Cranial nerves II through XII grossly intact. Normal speech, gait not observed. PSYCH: Normal mood, normal affect. SKIN: Warm, dry, normal turgor, no rashes or lesions noted Laboratory Results - last 24 hr 04/10/20 04/10/20 08:00 08:00 WBC 11.1 H RBC 4.87 Hgb 13.5 Hct 41.9 MCV 86.1 MCH 27.7 MCHC 32.2 RDW 14.3 Plt Count 360 MPV 9.0 Absolute Neuts (auto) 7.4 Neutrophils % 66.4 Lymphocytes % 23.5 Monocytes % 7.4 Eosinophils % 2.4 Basophils % 0.3 Nucleated RBC % 0 Sodium 137 Potassium 4.2 Chloride 105 Carbon Dioxide 24 Anion Gap 8 BUN 9.5 Creatinine 1.0 Est GFR (CKD-EPI)AfAm 114.11 Est GFR (CKD-EPI)NonAf 98.45 Random Glucose 115 H Calcium 9.0 Total Bilirubin 0.6 AST 52 H ALT 79 H Alkaline Phosphatase 85 Total Protein 6.9 Albumin 3.6 Active Medications Generic Name Dose Route Start Last Admin Trade Name Freq PRN Reason Stop Dose Admin Acetaminophen 650 mg 04/07/20 16:14 04/08/20 23:59 Tylenol - PO 650 mg Q4H PRN Administration PAIN LEVEL 6-10 Amlodipine Besylate 10 mg 04/07/20 18:00 04/10/20 10:36 Norvasc - PO 10 mg DAILY LEN Administration Potassium Chloride/Dextrose/Sod Cl 20 meq in 1,000 mls @ 100 mls/hr 04/07/20 16:15 04/10/20 04:38 D5-1/2ns+20 Meq Kcl - IV 100 mls/hr ASDIR LEN Administration Metronidazole 500 mg in 100 mls @ 100 mls/hr 04/07/20 18:00 04/10/20 11:35 Flagyl 500mg Premixed Ivpb - IVPB 100 mls/hr Q8H-IV LEN Administration Ceftriaxone Sodium 1 gm/ 50 mls @ 100 mls/hr 04/08/20 10:00 04/10/20 10:36 Dextrose IVPB 100 mls/hr DAILY LEN Administration Ondansetron HCl 4 mg 04/07/20 16:26 04/08/20 23:59 Zofran Injection IVPUSH 4 mg Q6H PRN Administration NAUSEA Pantoprazole Sodium 40 mg 04/08/20 10:00 04/10/20 10:36 Protonix - PO 40 mg DAILY LEN Administration ASSESSMENT/PLAN: ATTENDING PHYSICIAN STATEMENT I saw and evaluated the patient. I reviewed the resident's note and discussed the case with the resident. I agree with the resident's findings and plan as documented. SUBJECTIVE: OBJECTIVE: ASSESSMENT AND PLAN:
--- NOTE | 2020-04-10 17:17 | DS ---
Physical Exam: SUBJECTIVE: Patient seen and examined OBJECTIVE: Vital Signs Temperature 98.1 F 04/10/20 15:00 Pulse Rate 61 04/10/20 15:00 Respiratory Rate 20 04/10/20 15:00 Blood Pressure 122/82 04/10/20 15:00 O2 Sat by Pulse Oximetry (%) 98 04/10/20 15:00 PHYSICAL EXAM GENERAL: The patient is awake, alert, and fully oriented, in no acute distress. NECK: Trachea midline, full range of motion, supple. LUNGS: Breath sounds equal, clear to auscultation bilaterally HEART: Regular rate and rhythm, S1, S2 without murmur, rub or gallop. ABDOMEN: Soft, nontender, nondistended, normoactive bowel sounds EXTREMITIES: 2+ pulses, warm, well-perfused, no edema. NEUROLOGICAL: Cranial nerves II through XII grossly intact. Normal speech PSYCH: Normal mood, normal affect. SKIN: Warm, dry, normal turgor, no rashes or lesions noted. LABS Laboratory Results - last 24 hr 04/10/20 04/10/20 08:00 08:00 WBC 11.1 H RBC 4.87 Hgb 13.5 Hct 41.9 MCV 86.1 MCH 27.7 MCHC 32.2 RDW 14.3 Plt Count 360 MPV 9.0 Absolute Neuts (auto) 7.4 Neutrophils % 66.4 Lymphocytes % 23.5 Monocytes % 7.4 Eosinophils % 2.4 Basophils % 0.3 Nucleated RBC % 0 Sodium 137 Potassium 4.2 Chloride 105 Carbon Dioxide 24 Anion Gap 8 BUN 9.5 Creatinine 1.0 Est GFR (CKD-EPI)AfAm 114.11 Est GFR (CKD-EPI)NonAf 98.45 Random Glucose 115 H Calcium 9.0 Total Bilirubin 0.6 AST 52 H ALT 79 H Alkaline Phosphatase 85 Total Protein 6.9 Albumin 3.6 HOSPITAL COURSE: Date of Admission:04/07/20 Date of Discharge: 04/10/20 Patient is a 34M w/ pmh of HTN, PUD(duodenal ulcer in 2018 dx via EGD) presenting to [facility] w/ complaint of Right upper abdominal pain x2d. #RUQ abominal/subcostal pain - possible INGRAM - WBC and LFT trending down - HIDA scan unremarkable - Surg consult appreciated. No surgical intervention at this time. follow up as outpatient #transaminitis likely due to NAFLD/INGRAM - counseled on diet modification, weight loss, will need outpatient follow up by hepatology - to follow up with PCP for repeat LFTs in 1 week #chronic HTN - cw home Amlodipine 10 Minutes to complete discharge: 35 Discharge Summary Problems reviewed: Yes Reason For Visit: R UPPER QUADRANT ABDOMINAL PAIN INTRACTABLE PAIN Current Active Problems RUQ pain (Acute) Condition: Stable - Instructions Diet, Activity, Other Instructions: Your visit You were admitted to the hospital because you had belly pain. CAT scan of your belly and HIDA scan was done to check your gallbladder which were normal. You were evaluated by surgery and no surgical intervention recommended at this time. You will be sent home on a medication, Protonix, to help protect your stomach from acid. You were also noted to have abnormal liver function. This is probably caused by the fatty liver. It is important that you follow up with your primary care provider to have repeat blood work in 1 week to check your liver function. Medications Please take the following medication as prescribed: 1. Protonix 40mg once a day. Please continue your home medications. Follow up Please follow up with your primary care doctor (Dr. New) in 1 week. You will need a repeat blood work to check your liver function. Please follow up with surgery (Dr. Villar) in 1 week. Please follow up with gastroenterology (Dr. Perez) in 1-2 weeks. A referral has been provided. Additional info Please call 911 or go to the ED if with any worsening fevers, chills ,headache, dizziness, chest pain, shortness of breath, belly pain, diarrhea, or any new concerns noted. Referrals: Garth New MD [Staff Physician] - Willie Villar MD [Staff Physician] - Joel Perez DO [Staff Physician] - Disposition: HOME - Home Medications Comprehensive Discharge Medication List: Ambulatory Orders Amlodipine Besylate [Norvasc -] 10 mg PO DAILY #30 tablet 07/06/19 Pantoprazole Sodium [Protonix -] 40 mg PO DAILY #30 tablet.ec 04/10/20 This patient is new to me today: Yes Date on this admission: 04/10/20 Emergency Visit: Yes ED Registration Date: 04/07/20 Care time: The patient presented to the Emergency Department on the above date and was hospitalized for further evaluation of their emergent condition. Critical Care patient: No - Discharge Referral Referred to [facility] No ATTENDING PHYSICIAN STATEMENT I saw and evaluated the patient. I reviewed the resident's note and discussed the case with the resident. I agree with the resident's findings and plan as documented. SUBJECTIVE: OBJECTIVE: ASSESSMENT AND PLAN:
== END 2020-04-10 17:41 | disposition home or self-care (01) | DRG 443 ==
LOC: JER 05:41 → JERBED 15:05 → J8W 20:23
PROVIDERS: ADMIT Internal Medicine
DX: K76.0 Fatty (change of) liver, not elsewhere classified (principal); R74.0 Nonspecific elevation of levels of transaminase and lactic acid dehydrogenase [LDH]; R16.0 Hepatomegaly, not elsewhere classified; K76.9 Liver disease, unspecified; R10.11 Right upper quadrant pain; I10 Essential (primary) hypertension
CPT/HCPCS: 36415; 74177-TC; 76705-TC; 78226-TC; 80048; 80053; 80074; 81003; 83690; 83735; 84100; 85025; 85027; 85610; 93005; 93010; 99285-25; A9537; J0131; Q9967; U0003

== ENCOUNTER 2020-11-29 00:01 | Emergency (ER) | payer BC ==
[2020-11-29 00:13] VITALS: TEMP 98.2; BMI 41.1
[2020-11-29] MEDS ORDERED: ACETAMINOPHEN 325 MG TABLET (FP) PO ONE (00:47)
[2020-11-29] MEDS ORDERED: ACETAMINOPHEN 325 MG TABLET (FP) ONE (01:14)
[2020-11-29 01:28] LABS: BASO % 0.4 % (0-2.0); EOS % 2.1 % (0-4.5); HEMATOCRIT 42.2 % (35.4-49); HEMOGLOBIN 14.1 GM/dL (11.7-16.9); LYMPH % 27.8 % (8-40); MCH 28.2 pg (25.7-33.7); MCHC 33.3 g/dl (32.0-35.9); MEAN CELL VOLUME 84.6 fl (80-96); MEAN PLT VOLUME 8.9 fl (7.5-11.1); MONO % 6.5 % (3.8-10.2); NEUT % 63.2 % (42.8-82.8); PLATELET COUNT 332 K/MM3 (134-434); RBC 4.99 M/mm3 (4.00-5.60); RDW 14.2 % (11.9-15.9); WHITE BLOOD COUNT 13.9 K/mm3 (4.0-10.0)
[2020-11-29 01:46] LABS: CHLORIDE 104 mmol/L (98-107); SODIUM 138 mmol/L (136-145)
[2020-11-29 01:48] LABS: ANION GAP 5 MMOL/L (8-16); BLOOD UREA NITROGEN 21.5 mg/dL (7-18); CO2 29 mmol/L (21-32); GLUCOSE,RANDOM 112 mg/dL (74-106)
[2020-11-29 01:52] LABS: CREATININE 1.2 mg/dL (0.55-1.3); SGOT/AST 25 U/L (15-37); SGPT/ALT 47 U/L (13-61)
[2020-11-29 01:54] LABS: BILIRUBIN,TOTAL 0.3 mg/dL (0.2-1); TOT PROT 7.6 g/dl (6.4-8.2)
[2020-11-29 01:55] LABS: ALK PHOS 97 U/L (45-117)
[2020-11-29 02:08] LABS: CALCIUM 9.5 mg/dL (8.5-10.1)
[2020-11-29 03:53] VITALS: BP 150/103; PULSE 97
== END 2020-11-29 04:01 | disposition home or self-care (01) ==
LOC: JER 00:01
DX: R51.9 Headache, unspecified (principal)
CPT/HCPCS: 36415; 80053; 84484; 85025; 93005; 93010; 99284-25

== ENCOUNTER 2021-04-26 14:10 | Observation (INO) | payer BC ==
[2021-04-26] MEDS ORDERED: ASPIRIN 81 MG CHEWABLE TABLETS PO ONE (15:29)
[2021-04-26] MEDS ORDERED: NITROGLYCERIN SUBLINGUAL 1/150 0.4 MG TAB SL ONE (15:31)
[2021-04-26] MEDS ORDERED: MAG HYDROX/AL HYDROX/SIMETH 30 ML UNIT-DOSE CUP PO ONE (15:33)
[2021-04-26] MEDS ORDERED: FAMOTIDINE 20 MG/50 ML IVPB 20 MG/50 ML MG IVPB ONE ×2 (15:33→15:58)
[2021-04-26] MEDS ORDERED: ASPIRIN 81 MG CHEWABLE TABLETS ONE (15:55)
[2021-04-26] MEDS ORDERED: NITROGLYCERIN SUBLINGUAL 1/150 0.4 MG TAB ONE (15:56)
[2021-04-26] MEDS ORDERED: MAG HYDROX/AL HYDROX/SIMETH 30 ML UNIT-DOSE CUP ONE (15:57)
[2021-04-26 16:37] LABS: BASO % 0.5 % (0-2.0); EOS % 3.1 % (0-4.5); HEMOGLOBIN 14.9 GM/dL (11.7-16.9); LYMPH % 23.6 % (8-40); MCH 28.6 pg (25.7-33.7); MCHC 33.8 g/dl (32.0-35.9); MEAN CELL VOLUME 84.5 fl (80-96); MEAN PLT VOLUME 9.3 fl (7.5-11.1); MONO % 6.4 % (3.8-10.2); NEUT % 66.4 % (42.8-82.8); PLATELET COUNT 334 10^3/uL (134-434); RBC 5.21 M/mm3 (4.00-5.60); RDW 14.8 % (11.9-15.9); WHITE BLOOD COUNT 10.5 K/mm3 (4.0-10.0)
[2021-04-26 16:48] LABS: CHLORIDE 105 mmol/L (98-107); SODIUM 138 mmol/L (136-145)
[2021-04-26 16:50] LABS: ALBUMIN 4.2 g/dl (3.4-5.0); CALCIUM 9.2 mg/dL (8.5-10.1)
[2021-04-26 16:51] LABS: ANION GAP 10 MMOL/L (8-16); BLOOD UREA NITROGEN 12.8 mg/dL (7-18); CO2 24 mmol/L (21-32); GLUCOSE,RANDOM 107 mg/dL (74-106); LIPASE 73 U/L (73-393)
[2021-04-26 16:53] LABS: SGOT/AST 35 U/L (15-37); SGPT/ALT 44 U/L (13-61)
[2021-04-26 16:55] LABS: BILIRUBIN,TOTAL 0.8 mg/dL (0.2-1); TOT PROT 7.8 g/dl (6.4-8.2)
[2021-04-26 16:56] LABS: ALK PHOS 96 U/L (45-117)
[2021-04-27] VITALS: BMI 42.9
[2021-04-27] MEDS ORDERED: ACETAMINOPHEN 325 MG TABLET (FP) PO PRN (00:23)
[2021-04-27] MEDS ORDERED: LISINOPRIL 20 MG TABLET PO SCH ×4 (01:06→22:00)
[2021-04-27] MEDS ORDERED: LISINOPRIL 20 MG TABLET PO ONE (01:25)
[2021-04-27] MEDS: ENOXAPARIN NA (PORCINE) 40 MG/0.4 ML DISP.SYRIN SQ SCH ×2 (03:21→15:19)
[2021-04-27] MEDS ORDERED: hydrALAZINE HCL 20 MG/ML VIAL IVPUSH ONE (03:38)
[2021-04-27 03:56] LABS: EPI CELLS 2 /uL (0-25.1); HYALINE CASTS 0 /uL (0-3.1); URINE APPEARANCE CLEAR; URINE BACTERIA 4 /uL (0-1359); URINE BILIRUBIN NEGATIVE (NEGATIVE); URINE COLOR YELLOW; URINE GLUCOSE (UA) NEGATIVE (NEGATIVE); URINE KETONE TRACE (NEGATIVE); URINE LEUK ESTERASE NEGATIVE (NEGATIVE); URINE NITRITE NEGATIVE (NEGATIVE); URINE PROTEIN 1+ (NEGATIVE); URINE RBC 3 /uL (0-23.9); URINE UROBILINOGEN 0.2 mg/dL (0.2-1.0); URINE WBC 1 /uL (0-25.8)
[2021-04-27] MEDS ORDERED: HYDROCHLOROTHIAZIDE 12.5 MG CAPSULE (FP) PO ONE (06:46)
[2021-04-27 08:01] LABS: HEMATOCRIT 41.6 % (35.4-49); HEMOGLOBIN 14.1 GM/dL (11.7-16.9); MCH 28.6 pg (25.7-33.7); MCHC 33.8 g/dl (32.0-35.9); MEAN CELL VOLUME 84.6 fl (80-96); MEAN PLT VOLUME 9.7 fl (7.5-11.1); PLATELET COUNT 354 10^3/uL (134-434); RBC 4.91 M/mm3 (4.00-5.60); RDW 14.6 % (11.9-15.9); WHITE BLOOD COUNT 14.1 K/mm3 (4.0-10.0)
[2021-04-27 08:26] LABS: CALCIUM 8.8 mg/dL (8.5-10.1)
[2021-04-27 08:27] LABS: MAGNESIUM 2.3 mg/dL (1.8-2.4)
[2021-04-27 08:28] LABS: CREATININE 1.1 mg/dL (0.55-1.3)
[2021-04-27 08:32] LABS: PHOSPHOROUS 3.7 mg/dL (2.5-4.9)
[2021-04-27] MEDS ORDERED: HYDROCHLOROTHIAZIDE 12.5 MG CAPSULE (FP) PO SCH (10:00)
[2021-04-27] MEDS ORDERED: amLODIPine BESYLATE 10 MG TABLET (FP) PO SCH (10:00)
[2021-04-27 22:19] VITALS: BP 135/85; PULSE 95; TEMP 98
[2021-04-28] MEDS ORDERED: HYDROCHLOROTHIAZIDE 12.5 MG CAPSULE (FP) PO SCH (10:00)
== END 2021-04-27 19:00 | disposition left against medical advice (07) ==
LOC: JER 14:10 → JERBED 18:51 → J4W 22:39 → INTOOBSV 04-27 → OBSVTOIN 04-27
PROVIDERS: ADMIT Internal Medicine; ATTEND Nurse Practitioner Family
PROC: 3E023GC Introduction of Other Therapeutic Substance into Muscle, Percutaneous Approach (ICD-10-PCS; principal; 2021-04-26)
PROC: 3E033GC Introduction of Other Therapeutic Substance into Peripheral Vein, Percutaneous Approach (ICD-10-PCS; 2021-04-26)
DX: R07.9 Chest pain, unspecified (principal); I16.0 Hypertensive urgency; G47.33 Obstructive sleep apnea (adult) (pediatric); E66.01 Morbid (severe) obesity due to excess calories; Z68.41 Body mass index [BMI] 40.0-44.9, adult
CPT/HCPCS: 36415; 71045-TC-FY; 71275-TC; 74174-TC; 80048; 80053; 80061; 81003; 82550; 83036; 83690; 83735; 84100; 84443; 84484; 85025; 85027; 87086; 93005; 93010; 93306-TC; 99285-25; C9803; G0378; Q9967; U0003; U0005

== ENCOUNTER 2022-12-26 04:07 | Emergency (ER) | payer BC ==
[2022-12-26 04:18] VITALS: BP 178/85; PULSE 99; RESP 18; TEMP 98.5; BMI 39.1
[2022-12-26] MEDS ORDERED: ACETAMINOPHEN 1000 MG/100 ML BAG IVPB ONE (05:03)
[2022-12-26] MEDS ORDERED: MAG HYDROX/AL HYDROX/SIMETH 30 ML UNIT-DOSE CUP PO ONE (05:03)
[2022-12-26] MEDS ORDERED: SODIUM CHLORIDE 0.9% 500 ML INFUS.BAG IV ONE (05:03)
[2022-12-26] MEDS ORDERED: FAMOTIDINE 20 MG/50 ML IVPB 20 MG/50 ML MG IVPB ONE ×2 (05:03→05:21)
[2022-12-26] MEDS ORDERED: ACETAMINOPHEN INJECTION 100 ML IVPB ONE (05:21)
[2022-12-26] MEDS ORDERED: MAG HYDROX/AL HYDROX/SIMETH 30 ML UNIT-DOSE CUP ONE (05:21)
[2022-12-26 06:42] LABS: EPI CELLS 1 /uL (0-25.1); HYALINE CASTS 1 /uL (0-3.1); PH,URINE 5.5 (5.0-8.0); URINE APPEARANCE CLEAR; URINE BACTERIA 3 /uL (0-1359); URINE BILIRUBIN NEGATIVE (NEGATIVE); URINE COLOR YELLOW; URINE GLUCOSE (UA) NEGATIVE (NEGATIVE); URINE KETONE NEGATIVE (NEGATIVE); URINE LEUK ESTERASE NEGATIVE (NEGATIVE); URINE NITRITE NEGATIVE (NEGATIVE); URINE PROTEIN 1+ (NEGATIVE); URINE RBC 6 /uL (0-23.9); URINE UROBILINOGEN 0.2 mg/dL (0.2-1.0); URINE WBC 5 /uL (0-25.8)
[2022-12-26 06:45] LABS: HEMATOCRIT 38.4 % (35.4-49); HEMOGLOBIN 13.2 GM/dL (11.7-16.9); MCH 28.1 pg (25.7-33.7); MCHC 34.3 g/dl (32.0-35.9); MEAN CELL VOLUME 81.7 fl (80-96); MEAN PLT VOLUME 9.3 fl (7.5-11.1); PLATELET COUNT 299 10^3/uL (134-434); RDW 14.3 % (11.9-15.9); WHITE BLOOD COUNT 22.6 K/mm3 (4.0-10.0)
[2022-12-26 07:00] LABS: CALCIUM 8.9 mg/dL (8.5-10.1)
[2022-12-26 07:01] LABS: ALBUMIN 3.7 g/dl (3.4-5.0)
[2022-12-26 07:04] LABS: CREATININE 1.1 mg/dL (0.55-1.3)
[2022-12-26 07:05] LABS: BILIRUBIN,TOTAL 0.7 mg/dL (0.2-1); TOT PROT 7.2 g/dl (6.4-8.2)
[2022-12-26 08:41] LABS: ANISOCYTOSIS 0; HELMET CELLS 0; HOWELL-JOLLY BODIES 0; MACROCYTOSIS 0; OVALOCYTE 0; ROULEAU 0; SICKELED CELLS 0; TARGET CELLS 0; TEAR DROP CELLS 0; TOXIC GRANULATION 0
== END 2022-12-26 09:04 | disposition home or self-care (01) ==
LOC: JER 04:07
PROC: 3E033GC Introduction of Other Therapeutic Substance into Peripheral Vein, Percutaneous Approach (ICD-10-PCS; principal; 2022-12-26)
PROC: 3E033NZ Introduction of Analgesics, Hypnotics, Sedatives into Peripheral Vein, Percutaneous Approach (ICD-10-PCS; 2022-12-26)
DX: R10.30 Lower abdominal pain, unspecified (principal); R30.0 Dysuria
CPT/HCPCS: 36415; 74177-TC; 80053; 81003; 83690; 83735; 84484; 85025; 87086; 93005; 93010; 99285-25

== ENCOUNTER 2022-12-27 03:55 | Observation (INO) | payer BC ==
[2022-12-27] MEDS ORDERED: morphine CARPU-JECT 4 MG/1 ML DISP.SYRIN IVPUSH ONE (04:33)
[2022-12-27] MEDS ORDERED: ONDANSETRON 4 MG/2 ML VIAL IVPUSH ONE (04:33)
[2022-12-27] MEDS ORDERED: morphine SULFATE 4 MG/ML VIAL ONE (04:44)
[2022-12-27] MEDS ORDERED: ONDANSETRON 4 MG/2 ML VIAL ONE (04:44)
[2022-12-27 06:31] LABS: BASO % 0.3 % (0-2.0); EOS % 0.9 % (0-4.5); HEMATOCRIT 38.7 % (35.4-49); HEMOGLOBIN 13.1 GM/dL (11.7-16.9); LYMPH % 10.4 % (8-40); MCH 27.9 pg (25.7-33.7); MCHC 33.9 g/dl (32.0-35.9); MEAN CELL VOLUME 82.3 fl (80-96); MEAN PLT VOLUME 9.4 fl (7.5-11.1); MONO % 6.1 % (3.8-10.2); NEUT % 82.3 % (42.8-82.8); PLATELET COUNT 243 10^3/uL (134-434); RDW 14.4 % (11.9-15.9); WHITE BLOOD COUNT 17.2 K/mm3 (4.0-10.0)
[2022-12-27 07:22] LABS: BLOOD UREA NITROGEN 13.2 mg/dL (7-18); CALCIUM 8.8 mg/dL (8.5-10.1)
[2022-12-27 07:23] LABS: ALBUMIN 3.5 g/dl (3.4-5.0)
[2022-12-27 07:26] LABS: CREATININE 1.1 mg/dL (0.55-1.3)
[2022-12-27 07:27] LABS: BILIRUBIN,TOTAL 0.9 mg/dL (0.2-1)
[2022-12-27] MEDS ORDERED: ONDANSETRON 4 MG/2 ML VIAL IVPUSH PRN (07:51)
[2022-12-27] MEDS ORDERED: DEXTROSE 5%-NORMAL SALINE 1,000 ML IV SCH ×2 (08:00→10:35)
[2022-12-27] MEDS ORDERED: AMOX TR/POT CLAV 875MG/125MG TABLETS (FP) PO SCH (08:24)
[2022-12-27] MEDS ORDERED: AMOX TR/POT CLAV 875MG/125MG TABLETS (FP) ONE (09:04)
[2022-12-27] MEDS ORDERED: ENOXAPARIN NA (PORCINE) 40 MG/0.4 ML DISP.SYRIN SQ ONE (09:04)
[2022-12-27] MEDS ORDERED: amLODIPine BESYLATE 10 MG TABLET (FP) ONE (09:04)
[2022-12-27] MEDS: ENOXAPARIN NA (PORCINE) 40 MG/0.4 ML DISP.SYRIN SQ SCH (09:20)
[2022-12-27] MEDS: amLODIPine BESYLATE 10 MG TABLET (FP) PO SCH (09:20)
[2022-12-27] MEDS ORDERED: ACETAMINOPHEN 325 MG TABLET (FP) PO PRN (10:36)
[2022-12-27] MEDS ORDERED: D5-NS + 40 MEQ KCL - 40 MEQ/1,000 ML INFUS.BAG IV SCH (10:39)
[2022-12-27] MEDS ORDERED: CEFTRIAXONE 2 GM/100 ML BAG IVPB ONE (10:53)
[2022-12-27] MEDS: CEFTRIAXONE 2 GM in DEXTROSE 5%-WATER 100 ML IVPB SCH (10:54)
[2022-12-27] MEDS ORDERED: ACETAMINOPHEN 325 MG TABLET (FP) ONE (12:01)
[2022-12-27] MEDS ORDERED: LISINOPRIL 20 MG TABLET ONE (13:21)
[2022-12-27] MEDS: LISINOPRIL 20 MG TABLET PO SCH (13:22)
[2022-12-27 19:13] VITALS: BMI 41.4
[2022-12-28 08:47] LABS: HEMATOCRIT 38.3 % (35.4-49); HEMOGLOBIN 12.6 GM/dL (11.7-16.9); MCH 27.1 pg (25.7-33.7); MCHC 32.8 g/dl (32.0-35.9); MEAN CELL VOLUME 82.6 fl (80-96); MEAN PLT VOLUME 9.2 fl (7.5-11.1); PLATELET COUNT 274 10^3/uL (134-434); RBC 4.64 M/mm3 (4.00-5.60); RDW 14.5 % (11.9-15.9); WHITE BLOOD COUNT 15.2 K/mm3 (4.0-10.0)
[2022-12-28] MEDS: LISINOPRIL 20 MG TABLET PO SCH (09:11)
[2022-12-28] MEDS: amLODIPine BESYLATE 10 MG TABLET (FP) PO SCH (09:11)
[2022-12-28] MEDS: ENOXAPARIN NA (PORCINE) 40 MG/0.4 ML DISP.SYRIN SQ SCH (09:12)
[2022-12-28] MEDS: SODIUM CHLORIDE 1,000 ML IV SCH (09:20)
[2022-12-28 10:00] LABS: BLOOD UREA NITROGEN 13.6 mg/dL (7-18); CALCIUM 8.3 mg/dL (8.5-10.1)
[2022-12-28 10:01] LABS: ALBUMIN 3.2 g/dl (3.4-5.0); MAGNESIUM 2.3 mg/dL (1.8-2.4)
[2022-12-28 10:05] LABS: BILIRUBIN,TOTAL 0.7 mg/dL (0.2-1); TOT PROT 6.8 g/dl (6.4-8.2)
[2022-12-28] MEDS: CEFTRIAXONE 2 GM in DEXTROSE 5%-WATER 100 ML IVPB SCH ×2 (10:29→10:40)
[2022-12-28 15:46] VITALS: RESP 18
[2022-12-29] MEDS: SODIUM CHLORIDE 1,000 ML IV SCH (02:33)
[2022-12-29 08:04] LABS: BASO % 0.3 % (0-2.0); EOS % 2.6 % (0-4.5); HEMATOCRIT 37.1 % (35.4-49); HEMOGLOBIN 12.6 GM/dL (11.7-16.9); LYMPH % 16.8 % (8-40); MCH 27.9 pg (25.7-33.7); MCHC 34.1 g/dl (32.0-35.9); MEAN PLT VOLUME 8.9 fl (7.5-11.1); MONO % 6.3 % (3.8-10.2); PLATELET COUNT 316 10^3/uL (134-434); RBC 4.52 M/mm3 (4.00-5.60); RDW 14.3 % (11.9-15.9); WHITE BLOOD COUNT 12.5 K/mm3 (4.0-10.0)
[2022-12-29 08:11] LABS: CALCIUM 8.7 mg/dL (8.5-10.1)
[2022-12-29 08:12] LABS: ALBUMIN 3.4 g/dl (3.4-5.0); BLOOD UREA NITROGEN 12.5 mg/dL (7-18); MAGNESIUM 2.3 mg/dL (1.8-2.4)
[2022-12-29 08:17] LABS: BILIRUBIN,TOTAL 0.6 mg/dL (0.2-1)
[2022-12-29] MEDS: LISINOPRIL 20 MG TABLET PO SCH (09:24)
[2022-12-29] MEDS: ENOXAPARIN NA (PORCINE) 40 MG/0.4 ML DISP.SYRIN SQ SCH (09:24)
[2022-12-29] MEDS: CEFTRIAXONE 2 GM in DEXTROSE 5%-WATER 100 ML IVPB SCH (09:24)
[2022-12-29] MEDS: amLODIPine BESYLATE 10 MG TABLET (FP) PO SCH (09:24)
[2022-12-29 15:10] VITALS: BP 156/96; PULSE 88; TEMP 98
== END 2022-12-29 15:15 | disposition home or self-care (01) ==
LOC: JER 03:55 → JERBED 04:20 → J8W 18:07
PROVIDERS: ADMIT Internal Medicine; ATTEND Nurse Practitioner Acute Care
PROC: 3E03329 Introduction of Other Anti-infective into Peripheral Vein, Percutaneous Approach (ICD-10-PCS; principal; 2022-12-27)
PROC: 3E0337Z Introduction of Electrolytic and Water Balance Substance into Peripheral Vein, Percutaneous Approach (ICD-10-PCS; 2022-12-27)
PROC: 3E023GC Introduction of Other Therapeutic Substance into Muscle, Percutaneous Approach (ICD-10-PCS; 2022-12-27)
PROC: 3E023GC Introduction of Other Therapeutic Substance into Muscle, Percutaneous Approach (ICD-10-PCS; 2022-12-27)
DX: K57.32 Diverticulitis of large intestine without perforation or abscess without bleeding (principal); I10 Essential (primary) hypertension; K27.9 Peptic ulcer, site unspecified, unspecified as acute or chronic, without hemorrhage or perforation; E66.01 Morbid (severe) obesity due to excess calories; Z68.41 Body mass index [BMI] 40.0-44.9, adult
CPT/HCPCS: 36415; 80053; 83735; 84100; 85025; 85027; 86140; 99285-25; C9803-CS; G0378; U0003; U0005

== ENCOUNTER 2024-01-13 01:44 | Observation (INO) | payer BC ==
[2024-01-13 01:52] VITALS: BMI 42.3
[2024-01-13 02:37] LABS: HEMOGLOBIN 14.7 GM/dL (11.7-16.9); MCH 27.8 pg (25.7-33.7); MCHC 33.4 g/dl (32.0-35.9); MEAN CELL VOLUME 83.3 fl (80-96); MEAN PLT VOLUME 8.8 fl (7.5-11.1); PLATELET COUNT 344 10^3/uL (134-434); RBC 5.29 M/mm3 (4.00-5.60); RDW 14.4 % (11.9-15.9); WHITE BLOOD COUNT 13.2 K/mm3 (4.0-10.0)
[2024-01-13] MEDS: hydrALAZINE HCL 20 MG/ML VIAL IVPUSH ONE (02:39)
[2024-01-13] MEDS ORDERED: hydrALAZINE HCL 20 MG/ML VIAL ONE (02:39)
[2024-01-13 02:48] LABS: INR 1.23 (0.83-1.09); PROTHROMBIN TIME (PATIENT) 14.2 SEC (9.7-13.0)
[2024-01-13 03:01] LABS: POTASSIUM 3.6 mmol/L (3.5-5.1)
[2024-01-13 03:07] LABS: CREATININE 1.2 mg/dL (0.55-1.3)
[2024-01-13 03:08] LABS: EPI CELLS 1 /uL (0-25.1); HYALINE CASTS 0 /uL (0-3.1); PH,URINE 6.5 (5.0-8.0); URINE APPEARANCE CLEAR; URINE BACTERIA 6 /uL (0-1359); URINE BILIRUBIN NEGATIVE (NEGATIVE); URINE COLOR YELLOW; URINE GLUCOSE (UA) NEGATIVE (NEGATIVE); URINE KETONE NEGATIVE (NEGATIVE); URINE LEUK ESTERASE NEGATIVE (NEGATIVE); URINE NITRITE NEGATIVE (NEGATIVE); URINE PROTEIN 1+ (NEGATIVE); URINE RBC 8 /uL (0-23.9); URINE UROBILINOGEN 0.2 mg/dL (0.2-1.0); URINE WBC 1 /uL (0-25.8)
[2024-01-13 03:09] LABS: TOT PROT 7.6 g/dl (6.4-8.2)
[2024-01-13 03:10] LABS: BILIRUBIN,TOTAL 0.9 mg/dL (0.2-1)
[2024-01-13 03:11] LABS: BLOOD UREA NITROGEN 20.9 mg/dL (7-18)
[2024-01-13] MEDS: amLODIPine BESYLATE 10 MG TABLET (FP) PO ONE (05:50)
[2024-01-13] MEDS ORDERED: amLODIPine BESYLATE 10 MG TABLET (FP) ONE (06:12)
[2024-01-13] MEDS ORDERED: LISINOPRIL 20 MG TABLET ONE (08:23)
[2024-01-13] MEDS: LISINOPRIL 20 MG TABLET PO ONE ×2 (08:25→20:32)
[2024-01-13] MEDS ORDERED: FUROSEMIDE 40 MG/4 ML INJECTABLE VIAL ONE (14:40)
[2024-01-13] MEDS: FUROSEMIDE 40 MG/4 ML INJECTABLE VIAL IVPUSH ONE (14:41)
[2024-01-14 06:00] VITALS: RESP 18
[2024-01-14 07:32] LABS: BASO % 0.4 % (0-2.0); EOS % 2.8 % (0-4.5); HEMATOCRIT 40.8 % (35.4-49); HEMOGLOBIN 13.4 GM/dL (11.7-16.9); LYMPH % 31.7 % (8-40); MCH 27.8 pg (25.7-33.7); MCHC 32.9 g/dl (32.0-35.9); MEAN CELL VOLUME 84.6 fl (80-96); MEAN PLT VOLUME 8.9 fl (7.5-11.1); MONO % 7.8 % (3.8-10.2); NEUT % 57.3 % (42.8-82.8); PLATELET COUNT 274 10^3/uL (134-434); RBC 4.82 M/mm3 (4.00-5.60); RDW 14.1 % (11.9-15.9); WHITE BLOOD COUNT 11.4 K/mm3 (4.0-10.0)
[2024-01-14 07:55] LABS: POTASSIUM 3.8 mmol/L (3.5-5.1)
[2024-01-14 08:15] LABS: CHOLESTEROL 179 mg/dL (50-200)
[2024-01-14 08:17] LABS: ALBUMIN 3.7 g/dl (3.4-5.0); CALCIUM 9.2 mg/dL (8.5-10.1); LDL CHOLESTEROL (ONLY SJRH) 120 mg/dL (5-100)
[2024-01-14 08:18] LABS: BLOOD UREA NITROGEN 20.3 mg/dL (7-18); CREATININE 1.2 mg/dL (0.55-1.3); MAGNESIUM 2.7 mg/dL (1.8-2.4); PHOSPHOROUS 3.9 mg/dL (2.5-4.9)
[2024-01-14 08:19] LABS: HDL CHOLESTEROL 35 mg/dL (40-60); TOT PROT 6.8 g/dl (6.4-8.2)
[2024-01-14 09:12] VITALS: PULSE 76; TEMP 98.2
[2024-01-14] MEDS: ENOXAPARIN NA (PORCINE) 40 MG/0.4 ML DISP.SYRIN SQ SCH (09:12)
[2024-01-14] MEDS: LISINOPRIL 20 MG TABLET PO ONE (09:13)
[2024-01-14] MEDS: amLODIPine BESYLATE 10 MG TABLET (FP) PO ONE (09:13)
[2024-01-14] MEDS ORDERED: LISINOPRIL 20 MG TABLET PO SCH (10:00)
[2024-01-14] MEDS ORDERED: ENOXAPARIN NA (PORCINE) 40 MG/0.4 ML DISP.SYRIN SQ SCH (10:00)
[2024-01-14 10:47] VITALS: BP 158/94
[2024-01-14] MEDS: LISINOPRIL 20 MG TABLET PO SCH (11:12)
[2024-01-14] MEDS: amLODIPine BESYLATE 10 MG TABLET (FP) PO SCH (11:12)
== END 2024-01-14 15:00 | disposition home or self-care (01) ==
LOC: JER 01:44 → JERBED 11:40 → J4W 16:42
PROVIDERS: ADMIT Internal Medicine; ATTEND Internal Medicine
PROC: 3E023GC Introduction of Other Therapeutic Substance into Muscle, Percutaneous Approach (ICD-10-PCS; principal; 2024-01-13)
PROC: 3E033GC Introduction of Other Therapeutic Substance into Peripheral Vein, Percutaneous Approach (ICD-10-PCS; 2024-01-13)
PROC: 3E023GC Introduction of Other Therapeutic Substance into Muscle, Percutaneous Approach (ICD-10-PCS; 2024-01-13)
DX: I16.0 Hypertensive urgency (principal); K57.90 Diverticulosis of intestine, part unspecified, without perforation or abscess without bleeding; K27.9 Peptic ulcer, site unspecified, unspecified as acute or chronic, without hemorrhage or perforation; G47.33 Obstructive sleep apnea (adult) (pediatric); E66.9 Obesity, unspecified
CPT/HCPCS: 36415; 71046-TC-FY; 71275-TC; 76775-TC; 80053; 80061; 81003; 83036; 83735; 83880; 84100; 84484; 85025; 85027; 85379; 85610; 87086; 93005; 93010; 93306-TC; 99291; G0378; Q9967